=== PATIENT | male | born 1960 | race Caucasian/White ===

== ENCOUNTER 2018-04-07 18:29 | Emergency (ER) | payer BC ==
[~2018-04-07] VITALS: Ht 170.2 cm; Wt 69.3 kg
[~2018-04-07 18:29] MED LIST changes: -ASPI81TA28 PO; -INSDGI SC; -LISI-729 PO; -NVLG SC; -SIMV5TAB2 PO
[2018-04-07 18:32] VITALS: TEMP 36.9; Ht 170.2 cm; Wt 69.3 kg
[2018-04-07] MEDS ORDERED: SODIUM CHLORIDE 0.9% 1000ML 1,000 ML IV STA ×3 (18:39→21:31)
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
[2018-04-07 19:18] LABS: BASO % 0.5 %; BASO ABS # 0.04 K/uL (0-0.2); EOS % 3.4 %; EOS ABS # 0.29 K/uL (0-0.5); HEMATOCRIT 38.4 % (42-52); HEMOGLOBIN 14.3 g/dL (14.0-18.0); IG# 0.03 K/uL (0.00-0.02); LYMPH % 28.2 %; LYMPH ABS # 2.44 K/uL (1.2-3.4); MEAN CELL VOLUME 84.8 fL (80-100); MEAN CORPUSCULAR HEMOGLOBIN 31.6 pg (25-34); MEAN CORPUSCULAR HGB CONC 37.2 g/dl (32-36); MEAN PLATELET VOLUME 10.7 fL (7.4-10.4); MONO % 5.1 %; MONO ABS # 0.44 K/uL (0.11-0.59); NEUT % 62.5 %; NEUT ABS # 5.41 K/uL (1.4-6.5); PLATELET COUNT 219 K/uL (130-400); RED CELL DISTRIBUTION WIDTH CV 12.9 % (11.5-14.5); RED CELL DISTRIBUTION WIDTH SD 39.6 fL (36.4-46.3); WHITE BLOOD COUNT 8.65 K/uL (4.8-10.8)
[2018-04-07 20:06] LABS: ALBUMIN 3.3 gm/dl (3.4-5.0); CALCIUM 8.2 mg/dl (8.5-10.1); CREATININE 1.63 mg/dl (0.60-1.40); TOTAL PROTEIN 7.2 gm/dl (6.4-8.2)
[2018-04-07] MEDS ORDERED: SIMV5TAB2 PO (20:19)
[2018-04-07] MEDS ORDERED: INSDGI SC (20:19)
[2018-04-07] MEDS ORDERED: ASPI81TA28 PO (20:19)
[2018-04-07] MEDS ORDERED: LISI-729 PO (20:19)
[2018-04-07] MEDS ORDERED: NVLG SC ×3 (20:19)
[2018-04-07] MEDS ORDERED: NovoLIN-R INSULIN PER UNIT CHARGE IV STA (20:29)
[2018-04-07] MEDS ORDERED: INSULIN IV INFUSION PROTOCOL STA (20:29)
[2018-04-07] MEDS ORDERED: HHS GOAL RANGE 250-350 mg/dl ONE (20:30)
[2018-04-07] MEDS ORDERED: MODERATE STRESS LEVEL ONE (20:30)
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
[2018-04-07] MEDS ORDERED: INSULIN ASPART 100 UNITS/ML 3 ML PEN SC SCH (21:00)
[2018-04-07] MEDS ORDERED: LANTUS PER UNIT CHARGE SQ ONE (21:15)
--- NOTE | 2018-04-07 21:22 | Medical Consult ---
Consultation Date of Consultation: Apr 07, 2018. Attending Physician: Reason for Consultation: Hyperglycemia History of Present Illness Patient is a 57 year old male with hyperglycemia that we were asked to evaluated in consultation due to hyperglycemia. Patient is a 57 year old male with a PMH of COPD and T2 DM that presented to the ED upon request of his PCP Dr. Cody because the patient was found to have very high blood sugar during outpatient testing. The patient notes that he has not been able to afford his test strips and lantus and therefore he has not been administering his insulin as prescribed. He has been taking 5 units of rapid acting insulin with meals but is unsure how much to give for his coverage due to the fact that he can't afford the test strips. Otherwise he notes that he feels fine. He denies any headache, current visual changes, shortness of breath, dizziness, abdominal pain or fatigue. He has COPD and takes inhalers at home. He notes that his breathing has been worse than usual this month because of the weather. He continues to smoke 1 pack of cigarrettes daily. His vital signs have shown tachycardia. His labs have been significant for a glucose of 691, his ABG shows a PH of 7.46 and a PCO2 of 29 and his creatinine is elevated at 1.69. He has been given a L of fluids and he has been given 10 units of regular insulin IV. Past Medical/Surgical History Medical Problems: (1) Hyperglycemia Status: Acute (2) Noncompliance with medications Status: Acute (3) Uncontrolled diabetes mellitus Status: Acute Family History Cancer Diabetes mellitus Heart disease High blood pressure Lung disease Social History Smoking Status: Current Every Day Smoker Smokeless Tobacco Use: Yes Marital Status: Housing Status: lives with significant other Allergies Coded Allergies: No Known Allergies (Unverified , 04/07/18) Home Medications Simvastatin, lisinopril, aspirin, lantus, aspart and 2 inhalers Current Inpatient Medications Current Inpatient Medications Medications (Trade) Dose Ordered Sig/Jona Route Start Time Stop Time Status Last Admin Dose Admin Sodium Chloride 1,000 ml @ 200 mls/hr Q5H STAT IV 04/07/18 18:39 04/07/18 23:38 04/07/18 19:09 200 MLS/HR Insulin Glargine (Lantus Per Unit) 20 units NOW ONCE SQ 04/07/18 21:15 04/07/18 21:16 Review of Systems 10 systems were reviewed and were negative except as noted in the HPI Physical Exam Date Time Temp Pulse Resp B/P (MAP) Pulse Ox O2 Delivery O2 Flow Rate FiO2 04/07/18 20:32 101 16 136/99 97 Room Air 04/07/18 20:30 98 04/07/18 18:32 36.9 122 18 171/112 97 Room Air General Appearance: WD/WN, no apparent distress, + pertinent finding (ill appearing but in no acute distress) Head: normocephalic ENT: hearing grossly normal, + pertinent finding (no teeth) Neck: supple, no JVD, no carotid bruits, trachea midline Respiratory/Chest: lungs clear, no respiratory distress, no accessory muscle use, + decreased breath sounds (bilaterally) Cardiovascular: regular rate, rhythm, no murmur, normal peripheral pulses Abdomen/GI: normal bowel sounds, non tender, soft Extremities/Musculoskelatal: no calf tenderness, no pedal edema, non-tender Neurologic/Psych: alert, normal mood/affect, oriented x 3 Skin: normal color, warm/dry, no rash Laboratory Results Last 24 Hours Test 04/07/18 18:36 04/07/18 18:56 04/07/18 19:02 04/07/18 20:30 Bedside Glucose > 600 mg/dl White Blood Count 8.65 K/uL Red Blood Count 4.53 M/uL Hemoglobin 14.3 g/dL Hematocrit 38.4 % Mean Corpuscular Volume 84.8 fL Mean Corpuscular Hemoglobin 31.6 pg Mean Corpuscular Hemoglobin Concent 37.2 g/dl Platelet Count 219 K/uL Mean Platelet Volume 10.7 fL Neutrophils (%) (Auto) 62.5 % Lymphocytes (%) (Auto) 28.2 % Monocytes (%) (Auto) 5.1 % Eosinophils (%) (Auto) 3.4 % Basophils (%) (Auto) 0.5 % Neutrophils # (Auto) 5.41 K/uL Lymphocytes # (Auto) 2.44 K/uL Monocytes # (Auto) 0.44 K/uL Eosinophils # (Auto) 0.29 K/uL Basophils # (Auto) 0.04 K/uL RDW Standard Deviation 39.6 fL RDW Coefficient of Variation 12.9 % Immature Granulocyte % (Auto) 0.3 % Immature Granulocyte # (Auto) 0.03 K/uL Sodium Level 131 mmol/L Potassium Level 4.0 mmol/L Chloride Level 101 mmol/L Carbon Dioxide Level 20 mmol/L Anion Gap 9.0 mmol/L Blood Urea Nitrogen 17 mg/dl Creatinine 1.63 mg/dl Est Creatinine Clear Calc Drug Dose 47.3 ml/min Estimated GFR () 53.8 Estimated GFR (Non- 46.4 BUN/Creatinine Ratio 10.4 Random Glucose 691 mg/dl Calcium Level 8.2 mg/dl Total Bilirubin 0.6 mg/dl Direct Bilirubin mg/dl Aspartate Amino Transf (AST/SGOT) 27 U/L Alanine Aminotransferase (ALT/SGPT) 60 U/L Alkaline Phosphatase 127 U/L Total Protein 7.2 gm/dl Albumin 3.3 gm/dl Lipase 224 U/L Beta-Hydroxybutyric Acid mg/dL Chemistry Specimen Hemolysis Arterial Blood pH 7.46 Arterial Blood Partial Pressure CO2 29 mmHg Arterial Blood Partial Pressure O2 98 mm/Hg Arterial Blood HCO3 20 mmol/L Arterial Blood Oxygen Saturation 97.8 % Arterial Blood Base Excess -2.8 mEq/L Arterial Blood Gas Delivery ROOM AIR Duy Test POS Urine Color YELLOW Urine Appearance CLEAR Urine pH 6.0 Urine Specific [place] 1.033 Urine Protein NEG Urine Glucose (UA) 3+ Urine Ketones NEG Urine Occult Blood NEG Urine Nitrite NEG Urine Bilirubin NEG Urine Urobilinogen NEG Urine Leukocyte Esterase NEG Assessment & Plan Patient is a 57 year old male with a PMH of diabetes and COPD who we were asked to see due to hyperglycemia. He has been unable to pay for his lantus and his test strips. He went to his family doctor this afternoon who ordered lab tests and the patient was found to have severe hyperglycemia therefore he was sent to the ED for further evaluation. His vital signs showed tachycardia in the ED. His labs were significant for a glucose of 691, his ABG showed a PH of 7.46 and a PCO2 of 29 and his creatinine wss elevated at 1.69. He was given 2L of fluids and he was given 10 units of regular insulin IV. We recommended to give the patient 20 units of lantus and another Litre of NS. When rechecking his glucose it was 227. Throughout the patients hospital stay in the ED he remained completely asymptomatic. He said he had a prescription waiting for him at the pharmacy the next day. Plan is for the patient to be discharged this evening with follow up with his PCP. Resident Physician Supervision Note: I was present with Dr. Wright during the history and exam. I discussed the case with the resident and agree with the findings and plan as documented in the note. Any exceptions or clarifications are listed here: 57 y/o M Hx IDDM, COPD who continues to smoke He presented at the behest of his MD for abnormal labs including a Glu of over 600. He has not complied with his Insulin in one month. He states that he lost insurance coverage and was not able to afford his test strips. The pt was not acidotic. OE AAO x 3 S1,2 R CTA - poor air movement BL NT, ND No CCE P: We had corrected the pt's glu in the ER He will be DCd to follow up with his primary MD He was provided with test strips I had pointed out that he could have afforded his medications by cutting down on cigarettes as they cot more per month than his test strips He was encouraged to pursue cessation Documented By: Faustino Sol
[2018-04-07 23:32] VITALS: BP 153/93; PULSE 90; O2SAT 99
== END 2018-04-07 23:33 | disposition home or self-care (01) ==
LOC: C.EDB 18:31
DX: E11.65 Type 2 diabetes mellitus with hyperglycemia (principal); Z91.14 Patient's other noncompliance with medication regimen; R00.0 Tachycardia, unspecified; I10 Essential (primary) hypertension; J44.9 Chronic obstructive pulmonary disease, unspecified; F17.200 Nicotine dependence, unspecified, uncomplicated; Z79.82 Long term (current) use of aspirin; Z79.4 Long term (current) use of insulin; Z79.899 Other long term (current) drug therapy; Z83.3 Family history of diabetes mellitus

== ENCOUNTER → 2018-04-07 | Outpatient (CLI) | payer BC, OTHER ==
[~2018-04-07] MED LIST: ASPI81TA28 PO; GLC500 PO; INSDGI SC; LISI-729 PO; NVLG SC; SIMV5TAB2 PO
[2018-04-07 16:47] LABS: BASO % 0.7 %; BASO ABS # 0.06 K/uL (0-0.2); EOS % 3.7 %; EOS ABS # 0.33 K/uL (0-0.5); HEMATOCRIT 39.4 % (42-52); HEMOGLOBIN 14.4 g/dL (14.0-18.0); IG# 0.03 K/uL (0.00-0.02); LYMPH % 22.9 %; LYMPH ABS # 2.02 K/uL (1.2-3.4); MEAN CELL VOLUME 85.5 fL (80-100); MEAN CORPUSCULAR HEMOGLOBIN 31.2 pg (25-34); MEAN CORPUSCULAR HGB CONC 36.5 g/dl (32-36); MEAN PLATELET VOLUME 10.6 fL (7.4-10.4); MONO % 5.7 %; NEUT % 66.7 %; NEUT ABS # 5.89 K/uL (1.4-6.5); PLATELET COUNT 188 K/uL (130-400); RED CELL DISTRIBUTION WIDTH SD 39.8 fL (36.4-46.3); WHITE BLOOD COUNT 8.83 K/uL (4.8-10.8)
[2018-04-07 17:26] LABS: ALBUMIN 3.1 gm/dl (3.4-5.0); ALKALINE PHOSPHATASE 124 U/L (45-117); ALT/SGPT 57 U/L (12-78); AST/SGOT 24 U/L (15-37); BLOOD UREA NITROGEN 15 mg/dl (7-18); CALCIUM 8.2 mg/dl (8.5-10.1); CARBON DIOXIDE 21 mmol/L (21-32); CREATININE 1.63 mg/dl (0.60-1.40); GLUCOSE 608 mg/dl (70-99); POTASSIUM 3.9 mmol/L (3.5-5.1); SODIUM 131 mmol/L (136-145); TOTAL PROTEIN 7.1 gm/dl (6.4-8.2)
== END | disposition home or self-care (01) ==
LOC: C.LABPBG 12:33
PROVIDERS: ATTEND Physician Assistant
DX: R63.4 Abnormal weight loss (principal); R06.02 Shortness of breath

== ENCOUNTER 2024-10-15 15:34 | Inpatient (IN) ==
--- OUTSIDE RECORDS SUMMARY | 2024-10-15 16:01 | External Medical Summary | Summary of Care ---
Author Name Unknown Organization [facility] Address [address] [place] [address] Phone [phone] Care Team Providers Care Veneer Joiner Name Role Phone Pro, Vu Gaines MD Primary Care Provider [phone]- [phone] Encounter Details Date Type Department Care Team (Late st Contact Info) Description 08/08/2024 Orders Only Outcomes Research Department [address], [place] [id number] Margy Pantoja CHRA [email or web address] Research Other*[id number] Allergies No known active allergiesdocumented as of this encounter (statuses as of 08/08/2024) Medications Aspirin 81 MG Tablet Take 1 Tablet by mouth in the morning. Active Albuterol Sulfate (PROVENTIL HFA) 108 (90 Base) MCG/ACT AERS Inhale 1 Puff by mouth every 4 hours. Active Mometasone Furoate (ASMANEX HFA) 200 MCG/ACT AERO Inhale 1 Puff by mouth 2 times a day. Active tiotropium bromide (SPIRIVA) 18 MCG inhalation Capsule Inhale 1 Capsule by mouth in the morning. For inhaler only, do not swallow. . Active omeprazole (PRILOSEC) 20 MG CPDR Take 1 Cap by mouth 2 times a day 30 minutes before morning and evening meals. 180 Cap 3 11/09/19 20 Active sucralfate (CARAFATE) 1 GM Tablet Take 1 Tablet by mouth in the morning and 1 Tablet at noon and 1 Tablet before bedtime. 01/11/20 20 Active NOVOLOG FLEXPEN 100 UNIT/ML SOPN INJECT PER SLIDING SCALE UP TO 60 UNITS TOTAL DAILY DOSE 01/16/20 20 Active Atorvastatin Calcium 40 MG Oral Tablet (Lipitor) Take 1 Tab by mouth daily. 90 Tab 3 10/18/19 21 Active amLODIPine Besylate 5 MG Oral Tablet (Norvasc) Take by mouth 1 Tablet in the morning. 34 Tablet 11 11/28/19 22 Active Vitamin D3 1.25 MG (27786 UT) Oral Capsule Take 1 Capsule by mouth once a week. 07/10/20 23 Active Levothyroxine Sodium 75 MCG Oral Tablet (Levoxyl) Take 1 Tablet by mouth daily first thing in the morning. 07/21/20 23 Active Lokelma 5 GM Oral Packet TAKE 1 PACKET BY MOUTH DAILY DIRECTED 07/17/20 23 Active Furosemide 20 MG Oral Tablet (Lasix) Take 1 Tablet by mouth in the morning. 09/09/19 24 Active Semglee (yfgn) 100 UNIT/ML Subcutaneous Solution Pen-injector INJECT 70 UNITS SUBCUTANEOUSLY ONCE DAILY AT BEDTIME 09/19/19 24 Active Lisinopril 40 MG Oral Tablet Take 1 Tablet by mouth in the morning. 07/15/20 23 Active Carvedilol 6.25 MG Oral Tablet (Coreg) Take 1 Tablet by mouth 2 times a day with morning and evening meals. 09/22/19 24 Active Lantus SoloStar 100 UNIT/ML Subcutaneous Solution Pen-injector Inject 110 Units under the skin at bedtime. 10/30/19 24 Active Metoclopramide HCl 5 MG Oral Tablet (Reglan) TAKE 1 TABLET BY MOUTH IN THE MORNING AND 1 TABLET IN THE EVENING. 30 MINUTES BEFORE MEALS. 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, with macular edema, associated with type 2 diabetes mellitus (HCC) 8 mg IZ PRN 02/05/2024 02/04/2025 A ctive documented as of this encounter (statuses as of 08/08/2024) Active Problems Problem Noted Date Diagnosed Date Coronary artery disease invo lving [place] coronary artery of [place] heart without angina pectoris 08/17/2020 Syncope 08/17/2020 NSVT (nonsustained ventricular tachycardia) 08/07 HTN, goal below 140/90 08/17/2020 Hyperlipidemia with target LDL less than 70 08/07 Diabetes mellitus without complication 0 Gastroparesis 01/31/2020 documented as of this encounter (statuses as of 08/08/2024) Social History Tobacco Use Types Packs/Day Years Used Date Smoking Tobacco: Every Day Cigarettes 1 35 Smokeless Tobacco: Former Snuff Alcohol Use Standard Drinks/Week Comments Yes 0 (1 standard drink = 0.6 oz pur e alcohol) on occasion AUDIT-C Answer Date Recorded Frequency of Alcohol Consumption Monthly or less 03/30/2020 Average Number of Drinks 1 or 2 020 Frequency of Binge Drinking Never 03/08 Sex and Gender Information Value Date Recorded Sex Assigned at Not on file Legal Sex Male 6:38 AM EST Gender Identity Not on file Sexual Orientation Not on file documented as of this encounter Plan of Treatment Scheduled Orders Name Type Priority Associated Diagnoses Orde r Schedule MYCODE INITIAL ADULT Lab Routine My[facility] Research Other*[id number] Expected: 08/08/2024 (Approximate), Expires: 08/28/2025 Scheduled Procedures Name Priority Associated Diagnoses Date/Ti me COLONOSCOPY FLEXIBLE PROXIMAL DIAGNOSTIC Recall History of colonic polyps ESOPHAGOGASTRODUODENOSCOPY ( EGD), FLEXIBLE, TRANSORAL, DIAGNOSTIC Recall Chapman's esophagus Health Maintenance Due Date Last Done Comments DISCUSS TOBACCO CESSATION (REFER TO SMARTSET #3291) 1961 Pneumococcal Vaccine: Pediatrics (0 to 5 Years) and At-Risk Patients (6 to 64 Years) (1 of 2 - PCV) 1967 Depression Screening 1973 HIV Screening 1976 Diabetic Foot Exam 1979 Hepatitis C Screening 1979 DTap/Tdap Vaccines (1 - Tdap) 1980 Cologuard 2006 Fecal Occult Blood Test 2006 Sigmoidoscopy 2006 Lung Cancer Screening 2011 Zoster Vaccines (1 of 2) 2011 HbA1c 03/24/2023 09/24/2022, 05/09, 01/01/2016, Additional history exists Albumin/Creatinine Ratio 09/22/2023 023, 01/02/2016, 07/15/2014, Additional history exists COVID-19 Vaccine ( - season) 2024 Influenza Vaccine (FLU shot) (#1) 2024 GFR 06/15/2024 06/15/2023, 07/0 01/2022, 02/20/2022, Additional history exists TSH 06/15/2024 06/15/2023, 05/09, 01/01/2016, Additional history exists Diabetic Eye Exam 11/12/2024 11/13/2023, , 11/13/2023, Additional history exists Colonoscopy 11/18/2026 11/19/2023, 11/19/2023 Colorectal Cancer Screening 11/18/2026 HPV (Gardasil) Vaccine Aged Out No lo nger eligible based on patient's age to complete this topic Hepatitis B Vaccine Aged Out No longe r eligible based on patient's age to complete this topic MENINGOCOCCAL (MENACTRA/MENVEO) Aged Out No longer eligible based on patient's age to complete this topic documented as of this encounter Medical Devices Implanted Type Area Lining Maker Hand Device Identifier Shelf Expiration Date Model / Serial / Lot Duraclip 16mm Xlg Repostn - [id number] Implanted:Qty: 1 on 11/19/2023 by Flaquita De La Garza DO at [facility] [employer] 10/23/2024 [id number] / / [id number] documented as of this encounter Visit Diagnoses Diagnosis MyCode Research Other*[id number] documented in this encounter Care Teams Veneer Joiner Relationship Specialty Start Date End Date Pro, Vu Gaines MD [address] [place] [address] PCP - General Internal Medicine 10/26/19 documented as of this encounter
--- OUTSIDE RECORDS SUMMARY | 2024-10-15 16:01 | External Medical Summary | Summary of Care ---
Author Name Unknown Organization [facility] Address [address] [place] [address] Phone [phone] Care Team Providers Care Soaker Helper Name Role Phone Pro, Vu Gaines MD Primary Care Provider [phone]- [phone] Encounter Details Date Type Department Care Team (Late st Contact Info) Description 09/27/2024 Population Health External Data Unspecified Department Allergies No known active allergiesdocumented as of this encounter (statuses as of 09/27/2024) Medications Aspirin 81 MG Tablet Take 1 [...] in the morning. 34 Tablet 11 11/28/19 Active Vitamin D3 1.25 MG (59755 UT) Oral Capsule Take 1 Capsule by mouth once a week. 07/10/20 Active Levothyroxine Sodium 75 MCG Oral Tablet (Levoxyl) Take 1 Tablet by mouth daily first thing in the morning. 07/21/20 Active Lokelma 5 GM Oral Packet TAKE 1 PACKET BY MOUTH DAILY DIRECTED 07/17/20 Active Furosemide 20 MG Oral Tablet (Lasix) [...] as of this encounter (statuses as of 09/27/2024) Active Problems Problem Noted Date Diagnosed Date Coronary artery disease invo lving [place] coronary artery of [place] heart without angina pectoris 08/17/2020 Syncope 08/17/2020 NSVT (nonsustained ventricular tachycardia) 08/07 HTN, goal below 140/90 08/17/2020 Hyperlipidemia with target LDL less than 70 08/07 Diabetes mellitus without complication 0 Gastroparesis 01/31/2020 documented as of this encounter (statuses as of 09/27/2024) Social History Tobacco Use Types Packs/Day Years [...] of this encounter Plan of Treatment Scheduled Procedures Name Priority Associated Diagnoses Date/Ti me COLONOSCOPY FLEXIBLE PROXIMAL DIAGNOSTIC Recall History of colonic polyps ESOPHAGOGASTRODUODENOSCOPY ( EGD), FLEXIBLE, TRANSORAL, DIAGNOSTIC Recall Chapman's esophagus Health Maintenance Due Date Last Done Comments DISCUSS TOBACCO CESSATION (REFER TO SMARTSET #3944) 1961 Depression Screening 1973 HIV Screening 1976 Diabetic Foot Exam 1979 Hepatitis C Screening 1979 DTap/Tdap Vaccines (1 - Tdap) 1980 Pneumococcal Vaccine: 50+ Years (1 of 2 - PCV) 1980 Pneumococcal Vaccine: Pediatrics (0 to 5 Years) and At-Risk Patients (6 to 18 Years and 19+ Years) (1 of 2 - PCV) 1980 Cologuard 2006 Fecal Occult Blood Test 2006 Sigmoidoscopy 2006 Lung Cancer Screening 2011 Zoster Vaccines (1 of 2) 2011 HbA1c 03/24/2023 09/24/2022, 05/09, 01/01/2016, Additional history exists Albumin/Creatinine Ratio 09/22/2023 023, 01/02/2016, 07/15/2014, Additional history exists COVID-19 Vaccine ( season) 2024 Influenza Vaccine (FLU shot) (#1) [...] this encounter Medical Devices Implanted Type Area Critical Care Physician Assistant Device Identifier Shelf Expiration Date Model / Serial / Lot Duraclip 16mm Xlg Repostn - [id number] Implanted:Qty: 1 on 11/19/2023 by Flaquita De La Garza DO at [facility] [employer] 10/23/2024 [id number] / / [id number] documented as of this encounter Care Teams Soaker Helper Relationship Specialty Start Date End Date Pro, Vu Gaines MD [address] [place] [address] PCP - General Internal Medicine 10/26/19 documented as of this encounter
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
[2024-10-15 16:54] LABS: Basophils # (auto) 0.06 K/uL (0.00-0.20); Basophils % (auto) 0.8 %; Eosinophils # (auto) 0.68 K/uL (0.00-0.50); Eosinophils % (auto) 9.1 %; Hematocrit (blood only) 29.7 % (42.0-52.0); Hemoglobin 9.2 g/dl (14.0-18.0); Immature Granulocytes # (auto) 0.07 K/uL (0.01-0.20); Immature Granulocytes % (auto) 0.9 %; Lymphocytes # (auto) 0.96 K/uL (1.20-3.40); Lymphocytes % (auto) 12.8 %; Mean Corpuscular Hemoglobin 29.3 pg (25.0-34.0); Mean Corpuscular Volume 94.6 fL (80.0-100.0); Monocytes # (auto) 0.54 K/uL (0.11-0.59); Monocytes % (auto) 7.2 %; Neutrophils # (auto) 5.18 K/uL (1.40-6.50); Neutrophils % (auto) 69.2 %; Platelet Count 100 K/uL (130-400); RDW Coefficient of Variation 19.1 % (11.5-14.5); RDW Standard Deviation 64.7 fL (36.4-46.3); Red Blood Count 3.14 M/uL (4.70-6.10); White Blood Count 7.49 K/ul (4.8-10.8)
[2024-10-15 17:12] LABS: Albumin Globulin Ratio 0.6 (0.9-2); Albumin Level 2.8 gm/dl (3.4-5.0); BUN Creatinine Ratio 12.2 (10-20); Bilirubin,Total 0.5 mg/dl (0.2-1.0); Calcium 7.8 mg/dl (8.6-10.3); Creatinine Clr Calc Pharmacy 13.6 ml/min; Globulin 4.4 gm/dl (2.5-4.0); Potassium 6.3 mmol/L (3.5-5.1); Total Protein 7.2 gm/dl (6.0-8.3); Troponin I High Sensitivity 15.8 pg/ml (0-20)
[2024-10-15 17:19] LABS: Partial Thromboplastin Time 26 Seconds (21-31); Prothrombin Time 11.2 Seconds (9.0-12.0)
[2024-10-15] MEDS: CALCIUM GLUCONATE 1,000 MG/60 ML BAG IV STA (17:21)
[2024-10-15] MEDS: SODIUM BICARB 8.4% INJ 50 MEQ/50 ML SYR IV STA (17:22)
[2024-10-15 18:23] LABS: Appearance Urine Cloudy (Clear); Bacteria Urine Automated None Seen (None Seen); Bilirubin Urine Negative (Negative); Blood Urine 3+ (Negative); Color Urine Yellow; Epithelial Cell Urine Auto 0-2 /hpf (0-2); Glucose Urine UA Trace (Negative); Ketones Urine Negative (Negative); Leukocyte Esterase Urine Negative (Negative); Nitrite Urine Negative (Negative); Protein Urine 3+ (Negative); RBC Urine Automated >20 /hpf (0-2); Specific Gravity Urine 1.019 (1.000-1.030); Urobilinogen Urine Negative (Negative); WBC Urine Automated 0-5 /hpf (0-5)
--- NOTE | 2024-10-15 19:07 | CT Scan Report ---
EXAM: CT Chest Abdomen and Pelvis Without Intravenous Contrast INDICATION: Left upper quadrant pain. TECHNIQUE: Axial computed tomography images of the chest, abdomen and pelvis without intravenous contrast. Sagittal and coronal reformatted images were created and reviewed. This CT exam was performed using one or more of the following dose reduction techniques: automated exposure control, adjustment of the mA and/or kV according to patient size, and/or use of iterative reconstruction technique. COMPARISON: No relevant prior studies available. FINDINGS: Limitations: None. CHEST: Lungs and pleural spaces: Large left pleural effusion with complete collapse of the right lower and middle lobes and near collapse of the lower right upper lobe with maintained anterior segment aeration. Air bronchograms noted in the collapsed segments. No centrally obstructing mass identified. Left lung is clear. No pneumothorax. Heart: Cardiomegaly noted. Cardiac pacing device noted. Metallic artifact limits assessment of lead integrity. Mediastinum: No abnormality noted. Thyroid: No abnormality noted. ABDOMEN: Liver: Cirrhotic liver without evident mass or ductal dilatation. Gallbladder and bile ducts: No abnormality noted. No calcified stones. No ductal dilation. Pancreas: No pancreatic mass, calcification, inflammation or ductal dilation noted. Spleen: No significant abnormality noted. Adrenals: No significant abnormality noted. Kidneys and ureters: Simple bilateral renal cysts noted. No follow-up necessary. No stones or hydronephrosis. Stomach and bowel: See below. PELVIS: Appendix: No findings to suggest acute appendicitis. Bladder: The bladder is decompressed by catheter with the balloon inflated in the lumen. No stones. Reproductive: No significant abnormality noted. CHEST, ABDOMEN and PELVIS: Intraperitoneal space: Large amounts of abdominal and pelvic ascites. No free air. Bowel loops surrounded by ascitic fluid. No obstruction. Left colonic diverticula noted. No evidence focal thickening. Retroperitoneal space: No abnormality noted. No fluid collection. Bones/joints: No acute changes. Soft tissues: Generalized body wall edema noted. Vasculature: Prominent varices in the upper abdomen and paraesophageal compartment. Atherosclerotic calcification of the aorta and branches. No aneurysm. Lymph nodes: No enlarged lymph nodes. IMPRESSION: 1. Large right pleural effusion surrounds the right lower and middle lobes and significant portions of the right upper lobe. No obstructing mass noted. 2. Cirrhosis with large volume abdominal and pelvic ascites. 3. Anasarca. ACT 112: Negative or not required by law. Electronically signed by Myrna Gibson 10-15-2024 7:07 PM
[2024-10-15] MEDS: ALBUT/IPRATROP 3MG/0.5MG NEB 3 ML VIAL NEB STA (20:05)
[2024-10-15] MEDS: FUROSEMIDE 40 MG/4 ML VIAL IV ONE (20:05)
[2024-10-15] MEDS: SODIUM BICARBONATE 8.4% 150 MEQ in WATER, STERILE 1,000 ML IV SCH (20:27)
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
[2024-10-16] MEDS ORDERED: GLUCAGON FOR INJ 1 MG VIAL SQ PRN (00:50)
[2024-10-16] MEDS ORDERED: ACETAMINOPHEN 325 MG TAB PO PRN (00:50)
[2024-10-16] MEDS ORDERED: GLUCOSE 40% GEL 15 GM TUBE PO PRN (00:50)
[2024-10-16] MEDS ORDERED: ALBUTEROL HFA 8 GM INHALER INH PRN (00:50)
[2024-10-16] MEDS ORDERED: GLUCOSE 10 TAB/TUBE PO PRN (00:50)
[2024-10-16 02:13] LABS: Calcium 7.6 mg/dl (8.6-10.3); Creatinine Clr Calc Pharmacy 13.6 ml/min; Phosphorus 6.5 mg/dl (2.5-4.9); Potassium 5.7 mmol/L (3.5-5.1)
[2024-10-16] MEDS: INSULIN ASPART PER UNIT CHARGE SC SCH (02:27)
[2024-10-16] MEDS: carvediloL 6.25 MG TAB PO SCH ×2 (02:59→08:20)
[2024-10-16] MEDS: LANTUS PER UNIT CHARGE SC SCH ×2 (03:10→08:41)
[2024-10-16] MEDS: FUROSEMIDE 10 MG/ML 10 ML VIAL IV SCH (03:54)
[2024-10-16 05:35] LABS: Basophils # (auto) 0.04 K/uL (0.00-0.20); Basophils % (auto) 0.6 %; Eosinophils # (auto) 0.45 K/uL (0.00-0.50); Eosinophils % (auto) 6.8 %; Hematocrit (blood only) 23.3 % (42.0-52.0); Hemoglobin 7.5 g/dl (14.0-18.0); Immature Granulocytes # (auto) 0.05 K/uL (0.01-0.20); Immature Granulocytes % (auto) 0.8 %; Lymphocytes # (auto) 0.88 K/uL (1.20-3.40); Lymphocytes % (auto) 13.4 %; Mean Corpuscular Hemoglobin 30.1 pg (25.0-34.0); Mean Corpuscular Hgb Conc 32.2 g/dL (32.0-36.0); Mean Corpuscular Volume 93.6 fL (80.0-100.0); Mean Platelet Volume 9.2 fL (9.4-12.4); Monocytes # (auto) 0.57 K/uL (0.11-0.59); Monocytes % (auto) 8.7 %; Neutrophils # (auto) 4.58 K/uL (1.40-6.50); Neutrophils % (auto) 69.7 %; Platelet Count 76 K/uL (130-400); Platelet Estimate Decreased (Normal); Polychromasia 1+; RDW Coefficient of Variation 18.9 % (11.5-14.5); RDW Standard Deviation 63.5 fL (36.4-46.3); Red Blood Count 2.49 M/uL (4.70-6.10); White Blood Count 6.57 K/ul (4.8-10.8)
[2024-10-16 05:36] LABS: INR 1.1 (0.9-1.1); Partial Thromboplastin Time 27 Seconds (21-31); Prothrombin Time 11.9 Seconds (9.0-12.0)
[2024-10-16 05:37] LABS: Albumin Globulin Ratio 0.6 (0.9-2); Albumin Level 2.2 gm/dl (3.4-5.0); BUN Creatinine Ratio 11.9 (10-20); Bilirubin,Total 0.5 mg/dl (0.2-1.0); Calcium 7.5 mg/dl (8.6-10.3); Creatinine Clr Calc Pharmacy 13.2 ml/min; Globulin 3.6 gm/dl (2.5-4.0); Magnesium 1.6 mg/dl (1.7-2.4); Phosphorus 6.4 mg/dl (2.5-4.9); Potassium 6.3 mmol/L (3.5-5.1); Total Protein 5.8 gm/dl (6.0-8.3); Troponin I High Sensitivity 14.7 pg/ml (0-20)
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
[2024-10-16] MEDS: CALCIUM GLUCONATE 1,000 MG/60 ML BAG IV STA (08:38)
[2024-10-16] MEDS: LANTUS PER UNIT CHARGE SQ ONE (08:49)
[2024-10-16 08:53] LABS: Estimated Average Glucose 114 mg/dl; Hemoglobin A1C 5.6 % (4.5-5.6)
[2024-10-16] MEDS ORDERED: FUROSEMIDE 20 MG TAB PO SCH (09:00)
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
[2024-10-16 09:53] LABS: BUN Creatinine Ratio 12.4 (10-20); Calcium 7.7 mg/dl (8.6-10.3); Creatinine Clr Calc Pharmacy 13.6 ml/min
[2024-10-16] MEDS: ATORVASTATIN 40 MG TAB PO SCH (09:58)
[2024-10-16] MEDS: ASPIRIN 81 MG ECTAB PO SCH (09:58)
[2024-10-16] MEDS: amLODIPine BESYLATE 5 MG TAB PO SCH (09:58)
[2024-10-16] MEDS: PANTOprazole 40 MG TAB PO SCH (09:59)
[2024-10-16] MEDS: lisinopril 40 MG TAB PO SCH (10:00)
[2024-10-16] MEDS: SODIUM ZIRCONIUM CYCLOSILICATE 10 GM PACKET PO SCH (10:20)
[2024-10-16] MEDS ORDERED: SODIUM BICARBONATE IV SCH (11:00)
--- NOTE | 2024-10-16 11:23 | Pulmonary Consultation ---
Date of Consultation October 16, 2024 Assessment & Plan (1) Pleural effusion, right: (2) Ascites due to alcoholic cirrhosis: (3) Dyspnea on exertion: (4) Anasarca: Plan 63-year-old male presenting to the hospital with TRAN on CKD stage IV and and is severely volume overloaded. Patient with evidence of hepatic hydrothorax secondary to massive ascites from cirrhosis. Will consult IR for thoracentesis and paracentesis. Patient would benefit from albumin infusion around the time of the procedure to help prevent hypotension. Patient would also benefit from hemodialysis given severe TRAN and anasarca state. Nephrology following and planning for hemodialysis after vascular access is obtained. History of Present Illness Reason for Consultation: Large right pleural effusion Attending Physician: Margarita Ayala DO History of Present Illness 63-year-old male with hep C, nephrotic syndrome, CKD stage IV and GERD who presented to the hospital with shortness of breath and fatigue. CT chest and abdomen revealed massive ascites and a large right pleural effusion. Labs are consistent with TRAN on CKD and hyperkalemia. Nephrology consult to pulmonary medicine for thoracentesis. Patient endorses dyspnea with movement. No cough. No fevers or chills. Allergies Allergy/AdvReac Type Severity Reaction Status Date / Time No Known Allergies Allergy Verified 06/02/24 10:04 Home Medications Medication Instructions Recorded Confirmed Type aspirin 81 mg tablet,delayed 81 mg PO DAILY 06/16/20 10/15/24 History release furosemide 20 mg tablet (Lasix) 20 mg PO DAILY #30 tabs 11/06/23 10/15/24 Rx carvedilol 6.25 mg tablet 6.25 mg PO BID #60 tabs 11/13/23 10/15/24 Rx albuterol sulfate 90 mcg/actuation 1 puff inhalation Q4H PRN 06/02/24 10/15/24 Rx aerosol inhaler shortness of breath or wheezing #18 grams amlodipine 5 mg tablet 10 mg (2 x 5 mg) PO DAILY #180 tabs 06/02/24 10/15/24 Rx atorvastatin 40 mg tablet 40 mg PO DAILY #90 tabs 06/02/24 10/15/24 Rx blood sugar diagnostic (OneTouch #400 ea 06/02/24 Rx Verio test strips) cholecalciferol (vitamin D3) 1,250 50,000 unit PO .weekly #12 caps 06/02/24 10/15/24 Rx mcg (50,000 unit) capsule insulin aspart U-100 100 unit/mL See Rx Instructions .Route 06/02/24 10/15/24 Rx (3 mL) subcutaneous pen (Novolog .COMPLEX #15 mL FlexPen U-100 Insulin aspart) insulin glargine 100 unit/mL (3 70 unit (0.7 mL) subcut HS #60 mL 06/02/24 10/15/24 Rx mL) subcutaneous pen (Lantus Solostar U-100 Insulin) lancets 33 gauge #400 ea 06/02/24 Rx lisinopril 40 mg tablet 40 mg PO DAILY #90 tabs 06/02/24 10/15/24 Rx omeprazole 20 mg capsule,delayed 20 mg PO DAILY #90 caps 06/02/24 10/15/24 Rx release pen needle, diabetic 32 gauge x #500 ea 06/02/24 Rx 5/32" (BD Ultra-Fine Olivia Pen Needle) triamcinolone acetonide 0.1 % 1 applic topical BID PRN Skin 06/02/24 10/15/24 Rx topical cream Irritation #80 grams Patient History Medical History Acute kidney injury Type 2 diabetes mellitus Surgical History No pertinent past surgical history Family History Grandfather Colon cancer Mother Leukemia Father Diabetes Hypertension Myocardial infarction Grandfather Colon cancer Denies family history of Ovarian cancer Prostate cancer Breast cancer Social History Smoking Status: Current every day smoker Tobacco Type: Cigarettes Age Started Using Tobacco: 17; packs per day: 1; Cigarettes Per Day: 1 pack per day; Second Hand Exposure: No; Do You Dip or Chew Tobacco: No; Hx Alcohol Use: Yes Hx Substance Use: No Preferred Language: Amharic Communication Ability: Effective Pulper Required: No Beliefs That Will Affect Care: None marital status: Current Living Situation: Spouse current occupational status: unemployed Other Information That Helps Us Care for You: No Feels Safe at Home: Yes Safety Concerns: Feels Safe At This Time Childhood Exposure to Second-Hand Smoke: Yes Dental Care, Regularly: No Physical Activity Frequency: Does not Exercise Seatbelt Use: always Sunscreen Use: No Assistive Devices: Glasses Review of Systems Review of Systems: All systems reviewed & are unremarkable except as noted in HPI & below Physical Exam Physical Exam: Constitutional: Patient appears to be of their stated age. Patient is in no apparent distress. Patient is well-developed. Eyes: Pupils are equal round and reactive to light. Conjunctivae are normal. Anicteric sclera. Ears nose, mouth and throat: Mallampati class 2. Normal posterior oropharynx. Uvula is midline. Neck: Trachea is midline. Visual inspection is normal. Respiratory: Diminished at the right lung base with crackles. No significant tachypnea. Cardiovascular: Regular rate and rhythm. No murmurs. No edema. Gastrointestinal: Large fluid wave. Massively protuberant abdomen. Musculoskeletal: No cyanosis. Patient is able to move all extremities. Strength is 5 out of 5 in the upper and lower extremities. Skin: No rashes, warm dry and intact. Neurologic: No obvious focal neurological deficits seen. Psychiatric: Alert and oriented x3 with a euthymic affect. Results & Data Results & Data Vital Signs (Past 12 Hours) Vital Signs Temp Pulse Pulse Resp BP BP Pulse Ox 10/16/24 07:02 36.7 C 92 H 18 116/66 95 10/16/24 06:16 36.4 C L 84 18 119/73 95 10/16/24 06:00 90 10/16/24 03:10 36.5 C 100 H 18 142/77 H 95 10/16/24 01:12 103 H 10/16/24 00:46 10/16/24 00:46 36.8 C 101 H 20 149/84 H 98 10/15/24 23:30 100 H 24 128/70 93 O2 Del Method 10/16/24 07:02 Room Air 10/16/24 06:16 Room Air 10/16/24 06:00 10/16/24 03:10 Room Air 10/16/24 01:12 10/16/24 00:46 Room Air 10/16/24 00:46 Room Air 10/15/24 23:30 PG Care Time/CCT Total # of Minutes Spent Total Time Spent with Patient: Total time spent is greater than 50% in coordination of care (as documented) at patient's floor/unit and/or counseling patient: Coding Level of Care Code 72618 INT INP/OBS CARE MIN Diagnoses Pleural effusion, right J90 Ascites due to alcoholic cirrhosis K70.31 Dyspnea on exertion R06.09 Anasarca R60.1
[2024-10-16] MEDS: SODIUM BICARBONATE IV SCH (11:43)
[2024-10-16] MEDS: DEXTROSE 5% IV SCH (11:43)
[2024-10-16 12:37] LABS: BUN Creatinine Ratio 12.1 (10-20); Calcium 7.7 mg/dl (8.6-10.3); Creatinine Clr Calc Pharmacy 13.6 ml/min; Potassium 5.7 mmol/L (3.5-5.1)
[2024-10-16] MEDS: FUROSEMIDE 40 MG/4 ML VIAL IV SCH (14:28)
--- NOTE | 2024-10-16 14:32 | Ultrasound Report ---
INDICATION: Chronic kidney disease. COMPARISON: CT from the prior day. TECHNIQUE: Real-time sonographic examination of the retroperitoneum was performed in longitudinal and transverse dimensions. FINDINGS: Kidneys: Right kidney measures up to 10.7 cm. Simple cyst measuring up to 3.6 cm. Negative for solid renal mass, hydronephrosis or shadowing calculus. Left kidney measures up to 12 cm. Simple cyst measuring 1.2 and 1.3 cm. Negative for solid renal mass, hydronephrosis or shadowing calculus. Bladder: There is a Acevedo catheter in the urinary bladder. No urinary bladder abnormality identified. Spleen is enlarged measuring 16.7 cm. Small to moderate volume ascites noted. IMPRESSION: 1. Bilateral renal cysts. No renal calculus or hydronephrosis. 2. Splenomegaly. 3. Abdominal ascites. Electronically signed by Naveen Ratliff 10-16-2024 2:31 PM
[2024-10-16] MEDS ORDERED: SODIUM CHLORIDE 0.9% 50 ML IV PRN (15:34)
[2024-10-16] MEDS ORDERED: SODIUM CHLORIDE 0.9% 100 ML IV PRN (15:34)
[2024-10-16 16:43] LABS: Hematocrit (blood only) 24.3 % (42.0-52.0); Hemoglobin 7.8 g/dl (14.0-18.0); Mean Corpuscular Hemoglobin 30.2 pg (25.0-34.0); Mean Corpuscular Hgb Conc 32.1 g/dL (32.0-36.0); Mean Corpuscular Volume 94.2 fL (80.0-100.0); Mean Platelet Volume 9.4 fL (9.4-12.4); Platelet Count 79 K/uL (130-400); RDW Coefficient of Variation 18.6 % (11.5-14.5); RDW Standard Deviation 63.7 fL (36.4-46.3); Red Blood Count 2.58 M/uL (4.70-6.10); White Blood Count 6.72 K/ul (4.8-10.8)
[2024-10-16 17:00] LABS: BUN Creatinine Ratio 12.1 (10-20); Calcium 7.2 mg/dl (8.6-10.3); Potassium 5.4 mmol/L (3.5-5.1)
[2024-10-16 17:05] LABS: Troponin I High Sensitivity 18.6 pg/ml (0-20)
[2024-10-16 21:33] LABS: BUN Creatinine Ratio 12.1 (10-20); Calcium 7.1 mg/dl (8.6-10.3); Creatinine Clr Calc Pharmacy 12.9 ml/min; Potassium 5.3 mmol/L (3.5-5.1)
[2024-10-17 06:12] LABS: Basophils # (auto) 0.04 K/uL (0.00-0.20); Basophils % (auto) 0.6 %; Eosinophils # (auto) 0.47 K/uL (0.00-0.50); Eosinophils % (auto) 7.1 %; Hematocrit (blood only) 24.7 % (42.0-52.0); Hemoglobin 7.9 g/dl (14.0-18.0); Immature Granulocytes # (auto) 0.03 K/uL (0.01-0.20); Immature Granulocytes % (auto) 0.5 %; Lymphocytes # (auto) 1.08 K/uL (1.20-3.40); Lymphocytes % (auto) 16.4 %; Mean Corpuscular Hemoglobin 29.8 pg (25.0-34.0); Mean Corpuscular Volume 93.2 fL (80.0-100.0); Mean Platelet Volume 9.1 fL (9.4-12.4); Monocytes # (auto) 0.59 K/uL (0.11-0.59); Neutrophils # (auto) 4.38 K/uL (1.40-6.50); Neutrophils % (auto) 66.4 %; Platelet Count 67 K/uL (130-400); RDW Coefficient of Variation 18.6 % (11.5-14.5); RDW Standard Deviation 62.4 fL (36.4-46.3); Red Blood Count 2.65 M/uL (4.70-6.10); White Blood Count 6.59 K/ul (4.8-10.8)
[2024-10-17 06:31] LABS: Albumin Globulin Ratio 0.6 (0.9-2); Albumin Level 2.3 gm/dl (3.4-5.0); BUN Creatinine Ratio 11.8 (10-20); Bilirubin,Total 0.5 mg/dl (0.2-1.0); Calcium 7.4 mg/dl (8.6-10.3); Globulin 3.7 gm/dl (2.5-4.0); Magnesium 1.6 mg/dl (1.7-2.4); Phosphorus 6.7 mg/dl (2.5-4.9); Potassium 4.8 mmol/L (3.5-5.1)
[2024-10-17 06:37] LABS: RBC Morphology Unremarkable
[2024-10-17 06:40] LABS: INR 1.1 (0.9-1.1); Partial Thromboplastin Time 27 Seconds (21-31); Prothrombin Time 11.9 Seconds (9.0-12.0)
[2024-10-17] MEDS: NEPHROCAPS PO SCH (08:27)
--- NOTE | 2024-10-17 08:57 | Nephrology Progress Note ---
Date of Service October 17, 2024 Assessment & Plan (1) End stage chronic kidney disease: Plan: * ESKD due to DKD * Outpatient evaluation in 2022 revealed a nonnephritic urine sediment. Renal imaging was negative for hydronephrosis. Testing for monoclonal gammopathy, PLA2R Ab were both negative. * Baseline creatinine had been 1.7. Patient was noted to have a precipitous decline in renal function 07/30. Creatinine had risen to 2.9. Patient was subsequently lost to outpatient nephrology follow-up * 10/15/[address] - simple bilateral renal cysts. No stones or hydronephrosis * Acevedo catheter was placed in EMD * Suspect patient has progressed to ESKD and requires SURGERY NURSE. Discussed KDIGO CKD staging with patient and his . Explained that patient would benefit from initiation of HD for volume management and correction of electrolyte/acid-base status. Indications/benefits/risks/alternatives to HD were discussed in detail. Patient voiced understanding and indicated that he would like to proceed with dialysis. * Protect L arm for future vascular access * Start nephrovite one daily * Vascular surgery has scheduled IJ TCC placement for 10/18/24 afternoon * Plan 1st run HD tomorrow after IJ TCC placed * Will consult case management to set up outpatient HD at [facility] w/ Dr. Sandhu (2) Hyperkalemia: Plan: * ECG without hyperkalemic change at time of admission * Medical management for hyperkalemia initiated in the EMD * Will add Lokelma 10 g p.o. 3 times daily x 6 doses * CO2 has improved to 20. Stop NaHCO3 supplement * Continue to monitor BMP (3) Anasarca: Plan: * Continue furosemide 100 mg IV every 8 hours to promote diuresis and correct serum potassium (4) Cirrhosis: Plan: * History of hepatitis C+ and heavy alcohol use * Documented history of hepatic steatosis * Patient is known to [facility] gastroenterology. Will ask GI to reassess patient in regard to cirrhosis and hepatitis C+ * Question whether patient would benefit from hepatitis C treatment * Patient is scheduled for paracentesis by VIR (5) Pleural effusion: Plan: * Large right pleural effusion with collapse of the middle and lower lobes of the right lung * Patient is scheduled for thoracentesis by VIR * Once effusion is resolved patient may require evaluation for possible mucous plugging or endobronchial lesion. He does have a longstanding history of tobacco use, COPD * Pulmonology is following (6) Hepatitis C: (7) Diabetes mellitus type 2, uncontrolled, with complications: (8) Diabetic retinopathy, nonproliferative, severe: (9) COPD (chronic obstructive pulmonary disease): Admission and Anticipated Discharge Date Admission Date: October 15, 2024 Subjective Mr. Jones was evaluated in his hospital room this morning. He was breathing comfortably on RA but c/o abdominal distention and discomfort. He reports improved UO w/ IV diuretic therapy Review of Systems Constitutional: no fever Eyes: no problem reported Ear, Nose, Mouth, Throat: no problem reported Respiratory: + dyspnea; no cough Cardiovascular: no chest pain Gastrointestinal: + abdominal pain (Left upper quadrant) Physical Exam Constitutional: not in distress (Breathing comfortably on RA) Eyes: PERRL, conjunctivae normal, anicteric sclerae ENMT: external ear and nose normal, oropharynx normal Neck: trachea midline, no thyromegaly Respiratory: normal respiratory effort (Diminished breath sounds right side); no respiratory distress Cardiovascular: Rate/Rhythm: regular rate and regular rhythm Heart Sounds: no murmur and no cardiac rub Extremities: + edema (2+ edema of the arms and legs) Gastrointestinal (Abdomen): Inspection/Auscultation: + abdomen distended and + hypoactive bowel sounds Percussion/Palpation: abdomen nontender and no guarding Musculoskeletal: Extremities: no cyanosis Neurologic: awake; not confused Results & Data Vital Signs (Past 12 Hours) Vital Signs Temp Pulse Pulse Resp BP Pulse Ox O2 Del Method 10/17/24 08:06 79 10/17/24 07:49 36.5 C 76 20 147/82 H 98 Room Air 10/17/24 07:27 Room Air 10/17/24 03:19 36.2 C L 82 18 114/62 95 Room Air 10/16/24 22:46 36.6 C 82 18 119/67 93 Room Air 10/16/24 22:03 87 10/16/24 21:00 Room Air Laboratory Results Laboratory Results - last 24 hr 10/16/24 10/16/24 10/16/24 08:56 11:48 12:27 WBC RBC Hgb Hct MCV MCH MCHC RDW Std Deviation RDW Coeff of Ca Plt Count MPV Immature Gran % (Auto) Neut % (Auto) Lymph % (Auto) [place] % (Auto) Eos % (Auto) Baso % (Auto) Neut # (Auto) Lymph # (Auto) [place] # (Auto) Eos # (Auto) Baso # (Auto) Immature Gran # (Auto) RBC Morphology PT INR APTT PTT Ratio Sodium 142 141 Potassium 6.0 H 5.7 H Chloride 118 H 118 H Carbon Dioxide 18 L 18 L Anion Gap 6 5 BUN 72 H 70 H Creatinine 5.79 H* 5.78 H* Est Cr Clr Drug Dosing 13.6 13.6 eGFR 10.34 10.37 BUN/Creatinine Ratio 12.4 12.1 Glucose 113 H 118 H POC Glucose 131 H Calcium 7.7 L 7.7 L Phosphorus Magnesium Total Bilirubin AST ALT Alkaline Phosphatase Troponin I High Sens 16.8 Total Protein Albumin Globulin Albumin/Globulin Ratio Blood Type A Positive Antibody Screen NEGATIVE 10/16/24 10/16/24 10/16/24 16:17 16:40 20:37 WBC 6.72 RBC 2.58 L Hgb 7.8 L Hct 24.3 L MCV 94.2 MCH 30.2 MCHC 32.1 RDW Std Deviation 63.7 H RDW Coeff of Ca 18.6 H Plt Count 79 L MPV 9.4 Immature Gran % (Auto) Neut % (Auto) Lymph % (Auto) [place] % (Auto) Eos % (Auto) Baso % (Auto) Neut # (Auto) Lymph # (Auto) [place] # (Auto) Eos # (Auto) Baso # (Auto) Immature Gran # (Auto) RBC Morphology PT INR APTT PTT Ratio Sodium 143 Potassium 5.4 H Chloride 115 H Carbon Dioxide 22 Anion Gap 6 BUN 73 H Creatinine 6.04 H* Est Cr Clr Drug Dosing 13.0 eGFR 9.83 BUN/Creatinine Ratio 12.1 Glucose 122 H POC Glucose 126 H 114 H Calcium 7.2 L Phosphorus Magnesium Total Bilirubin AST ALT Alkaline Phosphatase Troponin I High Sens 18.6 Total Protein Albumin Globulin Albumin/Globulin Ratio Blood Type Antibody Screen 10/16/24 10/17/24 10/17/24 20:39 00:34 04:51 WBC RBC Hgb Hct MCV MCH MCHC RDW Std Deviation RDW Coeff of Ca Plt Count MPV Immature Gran % (Auto) Neut % (Auto) Lymph % (Auto) [place] % (Auto) Eos % (Auto) Baso % (Auto) Neut # (Auto) Lymph # (Auto) [place] # (Auto) Eos # (Auto) Baso # (Auto) Immature Gran # (Auto) RBC Morphology PT INR APTT PTT Ratio Sodium 143 Potassium 5.3 H Chloride 115 H Carbon Dioxide 21 Anion Gap 7 BUN 74 H Creatinine 6.11 H* Est Cr Clr Drug Dosing 12.9 eGFR 9.70 BUN/Creatinine Ratio 12.1 Glucose 103 H POC Glucose 104 H 91 Calcium 7.1 L Phosphorus Magnesium Total Bilirubin AST ALT Alkaline Phosphatase Troponin I High Sens Total Protein Albumin Globulin Albumin/Globulin Ratio Blood Type Antibody Screen 10/17/24 10/17/24 05:31 07:47 WBC 6.59 RBC 2.65 L Hgb 7.9 L Hct 24.7 L MCV 93.2 MCH 29.8 MCHC 32.0 RDW Std Deviation 62.4 H RDW Coeff of Ca 18.6 H Plt Count 67 L MPV 9.1 L Immature Gran % (Auto) 0.5 Neut % (Auto) 66.4 Lymph % (Auto) 16.4 [place] % (Auto) 9.0 Eos % (Auto) 7.1 Baso % (Auto) 0.6 Neut # (Auto) 4.38 Lymph # (Auto) 1.08 L [place] # (Auto) 0.59 Eos # (Auto) 0.47 Baso # (Auto) 0.04 Immature Gran # (Auto) 0.03 RBC Morphology Unremarkable PT 11.9 INR 1.1 APTT 27 PTT Ratio 1.0 Sodium 142 Potassium 4.8 Chloride 115 H Carbon Dioxide 20 L Anion Gap 7 BUN 72 H Creatinine 6.09 H* Est Cr Clr Drug Dosing 13.0 eGFR 9.74 BUN/Creatinine Ratio 11.8 Glucose 79 POC Glucose 84 Calcium 7.4 L Phosphorus 6.7 H Magnesium 1.6 L Total Bilirubin 0.5 AST 18 ALT 9 Alkaline Phosphatase 193 H Troponin I High Sens Total Protein 6.0 Albumin 2.3 L Globulin 3.7 Albumin/Globulin Ratio 0.6 L Blood Type Antibody Screen PG Care Time/CCT Total # of Minutes Spent Total Time Spent with Patient: Total time spent is greater than 50% in coordination of care (as documented) at patient's floor/unit and/or counseling patient: Coding Level of Care Code 09262 SUB INP/OBS CARE 3/50MIN Diagnoses End stage chronic kidney disease N18.6 Hyperkalemia E87.5 Anasarca R60.1 Cirrhosis K70.31 Ascites presence: with ascites Hepatic cirrhosis type: alcoholic cirrhosis Pleural effusion J90 Hepatitis C B19.20 Diabetes mellitus type 2, uncontrolled, with complications E11.8; E11.65 Diabetic retinopathy, nonproliferative, severe E11.3499 COPD (chronic obstructive pulmonary disease) J44.9 (4) Cirrhosis Ascites presence: with ascites Hepatic cirrhosis type: alcoholic cirrhosis Qualified Code(s): K70.31 - Alcoholic cirrhosis of liver with ascites
--- NOTE | 2024-10-17 09:42 | Consultation ---
Date of Consultation October 17, 2024 Assessment & Plan (1) Acute on chronic kidney failure: Pt now with worsening renal fxn and fluid overload. Discussed wtih Dr Levy, planning on permcath insertion in OR tomorrow. Procedure, risks, benefits, and alternatives discussed with pt by myself at Dr Levy's request. Pt expresses understanding and agreement to proceed. History of Present Illness Reason for Consultation: ESRD Attending Physician: Chriss Chacko DO History of Present Illness 63 yo m with hx of HTN, liver cirrhosis, hepatitis C, COPD, dyslipidemia, DMII, barretts esophagus, 3rd degree heart block s/p pacemaker, admitted with worsening renal fxn and fluid overload, seen in conusltation today for permcath insertion for HD initiation. Pt states he noted increased abd and leg edema over the past week, and developed some upper abd pain as well. Admits SANCHEZ, orthopnea, fatigue. Denies TURNER, fever, chest pain, N/V, recent illness, rest pain, claudication, other complaints. Allergies Allergy/AdvReac Type Severity Reaction Status Date / Time No Known Allergies Allergy Verified 06/02/24 10:04 Home Medications Medication Instructions Recorded Confirmed Type aspirin 81 mg tablet,delayed 81 mg PO DAILY 06/16/20 10/15/24 History release furosemide 20 mg tablet (Lasix) 20 mg PO DAILY #30 tabs 11/06/23 10/15/24 Rx carvedilol 6.25 mg tablet 6.25 mg PO BID #60 tabs 11/13/23 10/15/24 Rx albuterol sulfate 90 mcg/actuation 1 puff inhalation Q4H PRN 06/02/24 10/15/24 Rx aerosol inhaler shortness of breath or wheezing #18 grams amlodipine 5 mg tablet 10 mg (2 x 5 mg) PO DAILY #180 tabs 06/02/24 10/15/24 Rx atorvastatin 40 mg tablet 40 mg PO DAILY #90 tabs 06/02/24 10/15/24 Rx blood sugar diagnostic (OneTouch #400 ea 06/02/24 Rx Verio test strips) cholecalciferol (vitamin D3) 1,250 50,000 unit PO .weekly #12 caps 06/02/24 10/15/24 Rx mcg (50,000 unit) capsule insulin aspart U-100 100 unit/mL See Rx Instructions .Route 06/02/24 10/15/24 Rx (3 mL) subcutaneous pen (Novolog .COMPLEX #15 mL FlexPen U-100 Insulin aspart) insulin glargine 100 unit/mL (3 70 unit (0.7 mL) subcut HS #60 mL 06/02/24 10/15/24 Rx mL) subcutaneous pen (Lantus Solostar U-100 Insulin) lancets 33 gauge #400 ea 06/02/24 Rx lisinopril 40 mg tablet 40 mg PO DAILY #90 tabs 06/02/24 10/15/24 Rx omeprazole 20 mg capsule,delayed 20 mg PO DAILY #90 caps 06/02/24 10/15/24 Rx release pen needle, diabetic 32 gauge x #500 ea 06/02/24 Rx 32" (BD Ultra-Fine Olivia Pen Needle) triamcinolone acetonide 0.1 % 1 applic topical BID PRN Skin 06/02/24 10/15/24 Rx topical cream Irritation #80 grams Patient History Medical History Acute kidney injury Type 2 diabetes mellitus Surgical History No pertinent past surgical history Family History Grandfather Colon cancer Mother Leukemia Father Diabetes Hypertension Myocardial infarction Grandfather Colon cancer Denies family history of Ovarian cancer Prostate cancer Breast cancer Social History Smoking Status: Current every day smoker Tobacco Type: Cigarettes Age Started Using Tobacco: 17; packs per day: 1; Cigarettes Per Day: 1 pack per day; Second Hand Exposure: No; Do You Dip or Chew Tobacco: No; Hx Alcohol Use: Yes Hx Substance Use: No Preferred Language: Montenegrin Communication Ability: Effective Supervisor Phosphoric Acid Required: No Beliefs That Will Affect Care: None marital status: Current Living Situation: Spouse current occupational status: unemployed Other Information That Helps Us Care for You: No Feels Safe at Home: Yes Safety Concerns: Feels Safe At This Time Childhood Exposure to Second-Hand Smoke: Yes Dental Care, Regularly: No Physical Activity Frequency: Does not Exercise Seatbelt Use: always Sunscreen Use: No Assistive Devices: Glasses Review of Systems Review of Systems: All systems reviewed & are unremarkable except as noted in HPI & below Physical Exam Constitutional: WD/WN, vitals as above + ill appearing, + frail appearing, cooperative and comfortable; not in distress Neck: trachea midline Respiratory: + labored breathing (mild) Auscultati on: + diminished lung sounds, + crackles and + rales Cardiovascular: Rate/Rhythm: regular rate and regular rhythm Vessels: femoral pulses present, posterior tibial pulses present, dorsalis pedis pulses present and radial pulses present; + abnormal peripheral pulses Extremities: normal capillary refill and + edema (+4 BLE) Chest (Breasts): Chest: + pacemaker Gastrointestinal (Abdomen): Inspection/Auscultation: + abdomen distended and + abdominal edema Percussion/Palpation: + abdomen rigid and + ascites Musculoskeletal: no cyanosis or clubbing, extremities motor strength 5/5 Skin: + rash (BLE) Neurologic: moves all extremities and awake; no focal motor deficits and not confused Psychiatric: A+Ox3, euthymic affect Results & Data Vital Signs (Past 12 Hours) Vital Signs Temp Pulse Pulse Resp BP Pulse Ox O2 Del Method 10/17/24 08:06 79 10/17/24 07:49 36.5 C 76 20 147/82 H 98 Room Air 10/17/24 07:27 Room Air 10/17/24 03:19 36.2 C L 82 18 114/62 95 Room Air 10/16/24 22:46 36.6 C 82 18 119/67 93 Room Air 10/16/24 22:03 87
--- NOTE | 2024-10-17 10:02 | Hospitalist Progress Note ---
Date of Service October 17, 2024 Assessment & Plan (1) Acute on chronic kidney failure: Plan: Plan Assessment & Plan (1) Acute on chronic kidney failure 63 y/o with a PMHx of nephrotic syndrome, CKD IIIb/IV, GERD, HTN, severe COPD, alcoholic cirrhosis, IDDM, asthma, HLD who presented with LUQ, nausea, fullness, and bloating. Workup revealing of ascites, large pleural effusion, and acute on chronic renal failure. Admitted for management of fluid and electrolyte status. 2) Acute on chronic renal failure #Hyperkalemia #Ascites #Pleural effusion ARF on CKD IV. Large pleural effusion and marked ascites. Nephrology consult - rec 100 mg IV Lasix Q8H, continue Bicarb gtt - 150 mEq and D5, plan for access for CLINICAL RN, and IR drainage of abd/pleural space. Pulm consult to access for utility of thoracentesis. GI consult for cirrhosis management. IR for probable paracentesis and thoracentesis. Likely transudative fluid at present. No signs of SBP. If patient develops increased pain, fevers, change in mental status, or hemodynamic instability would consider addition of CTX and diagnostic paracentesis. Will need vascular access for HD - vascular surgery consulted. ASA held. NPO at midnight, hold ASA Fluids: HCO3 150 mEq + D5 @ 80 mL/hr K management - bicarb gtt, lasix, insulin 35 units , [facility] Consults: pulm, nephro, GI, vascular (2) Anemia due to chronic kidney disease/ Anemia of chronic disease/ Thrombocytopenia Likely secondary to CKD. Nephrology consulted. Studies notable for iron defic iency, elevated PTH, elevated phosphorus, low calcium, consistent w/ secondary hyperparathyroidism. May benefit from Venofer vs EPO - would defer to nephrology. (3) Ascites due to cirrhosis Patient denies continued drinking. States that he drank a lot when he was younger. MELD labs ordered. CT shows signs of varices, unclear if they would benefit from beta blockage. GI consulted would defer to them on spironolactone/beta jose initiation. GI consult, appreciate recs (4) Pleural effusion, right: (5) Anasarca: (6) Hyperkalemia: (7) Thrombocytopenia: Plan Code status: full DVT ppx: SCDs, chemo ppx contraindicated as patient will likely have interventions tomorrow, hold ASA Fluids: IVF @ 80 mL/hr HCO3 150 mEq + D5 Diet: renal dialysis and heart healthy diet, NPO @ midnight Dispo: PCU/tele, PT/OT for dispo planning, needs outpatient f/u for chronic conditions Admission and Anticipated Discharge Date Admission Date: October 15, 2024 Supervising Physician Co-Signing Physician Notes I personally examined the patient and verified all marinelli points of history and exam, discussed case, and agree with decision making with Dr Rivas seen after thoracentesis and paracentesis. Feeling better. Feels less pressure in his belly and feels like his breathing is easier. Feels like he can move around a little better. Vitals noted, in general he is awake and alert pleasant no distress. HEENT normocephalic atraumatic mucous membranes moist. Breathing unlabored no accessory muscle use good effort. Skin without rashes pallor or icterus. Neuro without focal deficits. Cirrhosis, ascites, hydrothorax, end-stage renal diseaseongoing med management, fluid drainage, supportive care. To initiate dialysis soon. Currently SCDs for DVT prophylaxis given multiple procedures. Otherwise as above. Subjective Patient had paracentesis performed today and scheduled tomorrow for his PermaCatheter Insertion. Discussed with patient his cirrhosis and he stated that he has not been drinking alcohol for years. Patient stated that what finally brought him in to the [facility] ED was the increased abdominal pressure he was experiencing and stated the swollen, distended abdomen had only been present for 1 1/2 weeks. Patient has been experiencing shortness of breath and swollen feet with difficulty ambulating these past few weeks also. Review of Systems Constitutional: + fatigue and + weakness; no fever and n o chills Cardiovascular: + orthopnea and + edema; no dyspnea at r est and no calf pain Gastrointestinal: + abdominal pain (increased abdominal pr essure) and + bloating; no change in bowel habits Genitourinary: no dysuria or no urinary frequency Physical Exam Constitutional: WD/WN, vitals as above Respiratory: normal respiratory effort and able to speak in complete sentences Cardiovascular: Rate/Rhythm: regular rate and regular rhythm Heart Sounds: no gallop and no murmur Extremities: + pedal edema and + edema; no calf tenderness Gastrointestinal (Abdomen): Inspection/Auscultation: + abdomen distended and normal bowel sounds Percussion/Palpation: + abdomen rigid and + tympanic to percussion Psychiatric: A+Ox3, euthymic affect Results & Data Results & Data Vital Signs (Past 12 Hours) Vital Signs Temp Pulse Pulse Resp BP Pulse Ox O2 Del Method 10/17/24 08:06 79 10/17/24 07:49 36.5 C 76 20 147/82 H 98 Room Air 10/17/24 07:27 Room Air 10/17/24 03:19 36.2 C L 82 18 114/62 95 Room Air 10/16/24 22:46 36.6 C 82 18 119/67 93 Room Air 10/16/24 22:03 87
[2024-10-17] MEDS: SEVELAMER CARBONATE 800 MG TAB PO SCH (12:15)
--- NOTE | 2024-10-17 14:08 | Pulmonology Progress Note ---
Date of Service October 17, 2024 Assessment & Plan (1) Pleural effusion, right: (2) Ascites due to alcoholic cirrhosis: (3) Dyspnea on exertion: (4) Anasarca: Plan Impression: 63-year-old male with anasarca, pleural effusions, and ascites. He has kidney disease and is progressing to requiring renal replacement therapy. He has known cirrhosis with evidence of varices on CT scan. Recommendations: 1. Pleural effusion: Patient undergoing thoracentesis by radiology today. 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 If transudative fluid is confirmed, management is typically diuretics which in this patient will not be appropriate given his kidney function. If refractory hepatic hydrothorax to dialysis, would recommend transfer to tertiary facility for consideration of TIPS. No role for indwelling pleural catheter placement or serial thoracentesis. Pulmonary will sign off at this point in time. Feel free to contact us with questions or concerns Admission and Anticipated Discharge Date Admission Date: October 15, 2024 Subjective Attempted to see patient however he was off the floor having a procedure. Discussed with nursing. Chart was reviewed. No events overnight. Plans are apparently to proceed with permacath placement tomorrow and thoracentesis paracentesis today Review of Systems 2 Review of Systems: Deferred Physical Exam 2 Physical Exam: Exam deferred as patient not in the room Results & Data Results & Data Vital Signs (Past 12 Hours) Vital Signs Temp Pulse Pulse Resp BP Pulse Ox O2 Del Method 10/17/24 13:54 66 10/17/24 12:19 36.3 C L 66 18 91/59 L 97 Room Air 10/17/24 08:06 79 10/17/24 07:49 36.5 C 76 20 147/82 H 98 Room Air 10/17/24 07:27 Room Air 10/17/24 03:19 36.2 C L 82 18 114/62 95 Room Air Laboratory Results 10/17/24 05:31 10/17/24 05:31 PG Care Time/CCT Total # of Minutes Spent Total Time Spent with Patient: Total time spent is greater than 50% in coordination of care (as documented) at patient's floor/unit and/or counseling patient: Coding Level of Care Code 43596 SUB INP/OBS CARE 10/01MIN Diagnoses Pleural effusion, right J90 Ascites due to alcoholic cirrhosis K70.31 Dyspnea on exertion R06.09 Anasarca R60.1
--- NOTE | 2024-10-17 14:37 | Gastrointestinal Consultation ---
Date of Consultation October 17, 2024 Assessment & Plan (1) Ascites due to alcoholic cirrhosis: (2) Hepatitis C: (3) Cirrhosis: Plan -Track MELD score daily -Diuretic management per nephrology -Needs an outpatient cd mixer for treatment/monitoring of his hep C cirrhosis -No signs of HE on my evaluation today -Paracentesis with fluid studies today -Avoid NSAIDs -Will need eventual EGD for variceal surveillance--I'm unclear who has been doing his EGDs for his Chapman's, but I presume [facility] and will look into this. -Monitor CBC/platelets -Limit Tylenol to <2000 mg daily -2 gm sodium restricted diet when eating Supervising Physician Co-Signing Physician Notes Reviewed above. Agree with plan per IGNACIO Watters. Paracentesis. Patient has decompensated cirrhosis. Management of hepatitis C her can be complicated. Typically this would be done at the hepatology level. Risk of deterioration with hepatitis C treatments. No signs of active gastrointestinal bleeding. His pleural effusions are probably related to his ascites. Await pleural fluid analysis. History of Present Illness Reason for Consultation: Hep C cirrhosis Attending Physician: Chriss Chacko DO History of Present Illness Patient is a 63 yo male with PMH of nephrotic syndrome, stage 4 CKD, GERD, syncope, hypertension, vitamin D deficiency, COPD, alcohol use, diabetic nephropathy, tobacco abuse, Chapman's Esophagus, asthma, & HLD. The patient awas admitted with abdominal pain. He notes that for over 1 week he has had progression of generalized swelling. He had imaging upon admission that shows ascites and hepatic hydrothorax. Nephrology following for diuretic adjustments. He was found to be positive for hepatitis C. Labs on presentation showed hyperkalemia with K of 6.3. Acute renal failure noted. He denies seeing a cd mixer in the past. He did not know about his hepatitis C status. He is awaiting a paracentesis & thoracentesis. MELD 21 largely due to kidney issues. T bili 0.5, AST 18, ALT 9. Allergies Allergy/AdvReac Type Severity Reaction Status Date / Time No Known Allergies Allergy Verified 06/02/24 10:04 Home Medications Medication Instructions Recorded Confirmed Type aspirin 81 mg tablet,delayed 81 mg PO DAILY 06/16/20 10/15/24 History release furosemide 20 mg tablet (Lasix) 20 mg PO DAILY #30 tabs 11/06/23 10/15/24 Rx carvedilol 6.25 mg tablet 6.25 mg PO BID #60 tabs 11/13/23 10/15/24 Rx albuterol sulfate 90 mcg/actuation 1 puff inhalation Q4H PRN 06/02/24 10/15/24 Rx aerosol inhaler shortness of breath or wheezing #18 grams amlodipine 5 mg tablet 10 mg (2 x 5 mg) PO DAILY #180 tabs 06/02/24 10/15/24 Rx atorvastatin 40 mg tablet 40 mg PO DAILY #90 tabs 06/02/24 10/15/24 Rx blood sugar diagnostic (OneTouch #400 ea 06/02/24 Rx Verio test strips) cholecalciferol (vitamin D3) 1,250 50,000 unit PO .weekly #12 caps 06/02/24 10/15/24 Rx mcg (50,000 unit) capsule insulin aspart U-100 100 unit/mL See Rx Instructions .Route 06/02/24 10/15/24 Rx (3 mL) subcutaneous pen (Novolog .COMPLEX #15 mL FlexPen U-100 Insulin aspart) insulin glargine 100 unit/mL (3 70 unit (0.7 mL) subcut HS #60 mL 06/02/24 10/15/24 Rx mL) subcutaneous pen (Lantus Solostar U-100 Insulin) lancets 33 gauge #400 ea 06/02/24 Rx lisinopril 40 mg tablet 40 mg PO DAILY #90 tabs 06/02/24 10/15/24 Rx omeprazole 20 mg capsule,delayed 20 mg PO DAILY #90 caps 06/02/24 10/15/24 Rx release pen needle, diabetic 32 gauge x #500 ea 06/02/24 Rx 5/32" (BD Ultra-Fine Olivia Pen Needle) triamcinolone acetonide 0.1 % 1 applic topical BID PRN Skin 06/02/24 10/15/24 Rx topical cream Irritation #80 grams Patient History Medical History Acute kidney injury Type 2 diabetes mellitus Surgical History No pertinent past surgical history Family History Grandfather Colon cancer Mother Leukemia Father Diabetes Hypertension Myocardial infarction Grandfather Colon cancer Denies family history of Ovarian cancer Prostate cancer Breast cancer Social History Smoking Status: Current every day smoker Tobacco Type: Cigarettes Age Started Using Tobacco: 17; packs per day: 1; Cigarettes Per Day: 1 pack per day; Second Hand Exposure: No; Do You Dip or Chew Tobacco: No; Hx Alcohol Use: Yes Hx Substance Use: No Preferred Language: Yi Communication Ability: Effective Surveyor Hydrographic Required: No Beliefs That Will Affect Care: None marital status: Current Living Situation: Spouse current occupational status: unemployed Other Information That Helps Us Care for You: No Feels Safe at Home: Yes Safety Concerns: Feels Safe At This Time Childhood Exposure to Second-Hand Smoke: Yes Dental Care, Regularly: No Physical Activity Frequency: Does not Exercise Seatbelt Use: always Sunscreen Use: No Assistive Devices: None Review of Systems Constitutional: no fever and no chills Respiratory: no cough and no dyspnea Gastrointestinal: swelling Musculoskeletal: edema Physical Exam Constitutional: well developed Gastrointestinal (Abdomen): ascites Psychiatric: Orientation: alert and oriented x 3 Results & Data Vital Signs (Past 12 Hours) Vital Signs Temp Pulse Pulse Resp BP Pulse Ox O2 Del Method 10/17/24 13:54 66 10/17/24 12:19 36.3 C L 66 18 91/59 L 97 Room Air 10/17/24 08:06 79 10/17/24 07:49 36.5 C 76 20 147/82 H 98 Room Air 10/17/24 07:27 Room Air 10/17/24 03:19 36.2 C L 82 18 114/62 95 Room Air PG Care Time/CCT Total # of Minutes Spent Total Time Spent with Patient: Total time spent is greater than 50% in coordination of care (as documented) at patient's floor/unit and/or counseling patient: Coding Level of Care Code 18012 IN/OBS CONSULT LVL 4,60M Diagnoses Ascites due to alcoholic cirrhosis K70.31 Hepatitis C B19.20 Cirrhosis K70.31 Ascites presence: with ascites Hepatic cirrhosis type: alcoholic cirrhosis (3) Cirrhosis Ascites presence: with ascites Hepatic cirrhosis type: alcoholic cirrhosis Qualified Code(s): K70.31 - Alcoholic cirrhosis of liver with ascites
--- NOTE | 2024-10-17 15:51 | Ultrasound Report ---
ULTRASOUND-GUIDED PARACENTESIS CLINICAL HISTORY: Ascites PROCEDURE: Procedure and risks were explained. Informed consent was obtained. A final timeout was com pleted. The abdomen was prepped and draped in sterile fashion. 1% lidocaine was utilized for skin ane sthesia. Utilizing ultrasound guidance, a 5 Yakut safety centesis catheter was advanced into the right lower quadrant pocket of ascites. Ultrasound images were obtained. A total of 2 L of ascites fluid was barbara lamonte, with 1 L sent to the lab. The catheter was removed and Band-Aid applied. The patient tolerated t he procedure well. Vital signs will be monitored postprocedure. IMPRESSION: Ultrasound-guided paracentesis as above. Performed, dictated, and signed by Drew Cee PA-C; to be co-signed by Dr. Angel Garcia. Electronically signed by: Angel Garcia M.D. 10/17/2024 3:58 PM
--- NOTE | 2024-10-17 15:53 | Ultrasound Report ---
ULTRASOUND-GUIDED RIGHT THORACENTESIS CLINICAL HISTORY: Right pleural effusion PROCEDURE: Procedure and risks were explained. Informed consent was obtained. A final timeout was com pleted. The right posterior thorax was prepped and draped in sterile fashion. 1% lidocaine was utiliz ed for skin anesthesia. Utilizing ultrasound guidance, a 5 Sami safety centesis catheter was advanced into the right pleura l effusion. Ultrasound images were obtained. A total of 1.5 L of pleural fluid was removed, with 1 L sent to the lab. The catheter was removed and Band-Aid applied. The patient tolerated the procedure w ell. A chest x-ray will be obtained post procedure. Vital signs will be monitored on the floor. IMPRESSION: Ultrasound-guided right thoracentesis as above. Performed, dictated, and signed by Drew Cee PA-C; to be co-signed by Dr. Angel Garcia. Electronically signed by: Angel Garcia M.D. 10/17/2024 3:58 PM
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
[2024-10-17 16:48] LABS: Amylase Pleural Fluid 23 U/L; Glucose Pleural Fluid 106 mg/dl; LDH Pleural Fluid 45 U/L; Total Protein Pleural Fluid < 3.0 gm/dl
[2024-10-17 16:49] LABS: Albumin Peritoneal Fluid < 1.5 gm/dl; Total Protein Peritoneal Fluid < 3.0 gm/dl
[2024-10-17 17:21] LABS: Appearance Pleural Fluid Hazy; Color Pleural Fluid Pale Yellow; Lymphocytes, Fluid 5 %; Mono,Macrophage,Mesothelial 93 %; Neutrophils, Fluid 2 %; RBC Pleural Fluid Auto < 2000 /uL; Source Pleural Fluid Right Lung; WBC Pleural Fluid Auto 135 /uL
[2024-10-17 17:22] LABS: Appearance Peritoneal Fluid Hazy; Color Peritoneal Fluid Pale Yellow; Lymphocytes, Fluid 20 %; Mono,Macrophage,Mesothelial 76 %; Neutrophils, Fluid 4 %; RBC Peritoneal Fluid Auto < 2000 /uL; WBC Peritoneal Fluid Auto 158 /ul (0-300)
[2024-10-17 18:00] LABS: Hep B Surface Ag with confirm Negative (Negative)
[2024-10-17 18:09] LABS: Hepatitis B Surface Ab Quant 3.41 mIU/mL (>or=10mIU/mL Immune); Hepatitis B Surface Antibody Non-Immune
--- NOTE | 2024-10-17 18:10 | Billing Data ---
Date of Service October 17, 2024 Coding Level of Care Code 56642 SUB INP/OBS CARE MIN
[2024-10-18 05:42] LABS: Basophils # (auto) 0.03 K/uL (0.00-0.20); Basophils % (auto) 0.5 %; Eosinophils # (auto) 0.49 K/uL (0.00-0.50); Eosinophils % (auto) 7.8 %; Hematocrit (blood only) 22.8 % (42.0-52.0); Hemoglobin 7.5 g/dl (14.0-18.0); Immature Granulocytes # (auto) 0.04 K/uL (0.01-0.20); Immature Granulocytes % (auto) 0.6 %; Lymphocytes % (auto) 17.6 %; Mean Corpuscular Hemoglobin 30.2 pg (25.0-34.0); Mean Corpuscular Hgb Conc 32.9 g/dL (32.0-36.0); Mean Corpuscular Volume 91.9 fL (80.0-100.0); Mean Platelet Volume 9.9 fL (9.4-12.4); Monocytes # (auto) 0.55 K/uL (0.11-0.59); Monocytes % (auto) 8.8 %; Neutrophils # (auto) 4.05 K/uL (1.40-6.50); Neutrophils % (auto) 64.7 %; Platelet Count 78 K/uL (130-400); RDW Coefficient of Variation 18.1 % (11.5-14.5); RDW Standard Deviation 59.9 fL (36.4-46.3); Red Blood Count 2.48 M/uL (4.70-6.10); White Blood Count 6.26 K/ul (4.8-10.8)
[2024-10-18 06:01] LABS: BUN Creatinine Ratio 12.9 (10-20); Calcium 6.6 mg/dl (8.6-10.3); Creatinine Clr Calc Pharmacy 13.2 ml/min; Magnesium 1.6 mg/dl (1.7-2.4); Phosphorus 6.5 mg/dl (2.5-4.9); Potassium 4.4 mmol/L (3.5-5.1)
[2024-10-18 06:07] LABS: Polychromasia 1+
--- NOTE | 2024-10-18 08:17 | Hospitalist Progress Note ---
Date of Service October 18, 2024 Assessment & Plan (1) Acute on chronic kidney failure: Plan: Plan Assessment & Plan 63 y/o with a PMHx of nephrotic syndrome, CKD IIIb/IV, GERD, HTN, severe COPD, alcoholic cirrhosis, IDDM, asthma, HLD who presented with LUQ, nausea, fullness, and bloating. Workup revealing of ascites, large pleural effusion, and acute on chronic renal failure. Admitted for management of fluid and electrolyte status 1) Ascites/ pleural effusion/ anasarca all due to Cirrhosis Patient denied continued drinking. States that he drank a lot when he was younger. MELD labs ordered daily, MELD score, 19 (w/ today pre-dialysis data) CTP score of 9 (w/ today's pre-dialysis data) CT shows signs of varices, unclear if they would benefit from beta blockage 2) Hepatitis C infection - likely etiology, at least in part, of pt's cirrhosis (positive in Jun 2020) - doesn't appear that patient had previous Hep C treatment . 3) Acute on chronic renal failure/ Hyperkalemia/ Ascites/ Pleural effusion ARF on CKD IV. Large pleural effusion and marked ascites. - Nephrology consult - rec 100 mg IV Lasix Q8H, continue Bicarb gtt - 150 mEq and D5, plan for access for CV/CVN CV TSC SYSTEM OPERATOR, and IR drainage of abd/pleural space. - Pulm consult to access for utility of thoracentesis. - GI consult for cirrhosis management. - IR for probable paracentesis and thoracentesis. Likely transudative fluid at present. No signs of SBP. - If patient develops increased pain, fevers, change in mental status, or hemodynamic instability would consider addition of CTX and diagnostic paracentesis. Will need vascular access for HD - vascular surgery consulted. ASA held but consider re-starting s/p central catheter placement NPO at midnight, hold ASA Fluids: HCO3 150 mEq + D5 @ 80 mL/hr K, 4.4 (before dialysis) --> management - bicarb gtt, lasix, insulin HS, Lokelma insulin changed to 10 units, qHS Patient now s/p paracentesis and s/p thoracentesis 4) Anemia due to chronic kidney disease/ Anemia of chronic disease/ Thrombocytopenia Hgb, 7.5 <-- 9.2 Plt, 78 <-- 100 - Likely secondary to CKD. Nephrology consulted. - Studies notable for iron deficiency, elevated PTH, elevated phosphorus, low calcium, consistent w/ secondary hyperparathyroidism. - May benefit from Venofer vs EPO - would defer to nephrology --> they started EPO 5) Hyperkalemia K, 4.4 (before dialysis) --> management - bicarb gtt, lasix, insulin HS, Lokelma Plan Code status: Full DVT ppx: SCDs, chemo ppx contraindicated as patient will likely have interventions tomorrow, hold ASA Fluids: IVF @ 80 mL/hr HCO3 150 mEq + D5 Diet: renal dialysis and heart healthy diet Dispo: PCU/tele, PT/OT for dispo planning, needs outpatient f/u for chronic conditions Admission and Anticipated Discharge Date Admission Date: October 15, 2024 Supervising Physician Co-Signing Physician Notes I personally examined the patient and verified all marinelli points of history and exam, discussed case, and agree with decision making with Dr Rivas feeling ok no new issues has done well today. Vitals noted, in general he is awake and alert pleasant no distress. HEENT normocephalic atraumatic mucous membranes moist. Breathing unlabored no accessory muscle use good effort. Skin without rashes pallor or icterus. Neuro without focal deficits. Cirrhosis, ascites, hydrothorax, end-stage renal diseaseongoing med management, fluid drainage, supportive care. HD. SCDs for DVT proph although possibly by tomorrow with procedures likely being completed could potentially start pharmacologic proph otherwise as above Subjective Patient had paracentesis and thoracentesis performed yesterday and had his PermaCatheter Insertion done today. Patient's predominant Sx upon admission was the increased abdominal pressure and distended abddomen hed felt for 1 1/2 weeks. Today patient complaining about scrotal swelling that he states is new onset since admission. Continues to have swollen feet with difficulty ambulating, but feels like his breathing is much easier today. Thinks he may have been more dyspneic than he realized. Review of Systems Constitutional: + fatigue Respiratory: no cough, no chest congestion and no dyspnea on exertion Cardiovascular: + edema; no chest pain, no palpitations and no calf pain Gastrointestinal: no abdominal pain, no bloating and no change in bowel habits Genitourinary: + scrotal swelling; no dysuria or no uri nary frequency Physical Exam Constitutional: WD/WN, vitals as above Respiratory: normal respiratory effort and able to speak in complete sentences Cardiovascular: Rate/Rhythm: regular rate and regular rhythm Heart Sounds: no gallop and no murmur Extremities: + pedal edema and + edema; no calf tenderness Gastrointestinal (Abdomen): Inspection/Auscultation: + abdomen distended and normal bowel sounds Percussion/Palpation: + abdomen rigid and + tympanic to percussion Psychiatric: A+Ox3, euthymic affect Genitourinary: + scrotum abnormality, + circumcised, + edematous scrotum, + erythematous scrotum (red scrotum but not dark red, also not indurated) and + scrotal swelling Results & Data Results & Data Vital Signs (Past 12 Hours) Vital Signs Temp Pulse Pulse Pulse Resp BP Pulse Ox 10/18/24 07:28 36.6 C 76 18 116/66 95 10/18/24 07:15 82 10/18/24 03:00 36.6 C 82 18 99/50 L 94 10/17/24 23:00 36.6 C 76 18 142/73 H 96 10/17/24 22:20 77 O2 Del Method 10/18/24 07:28 Room Air 10/18/24 07:15 10/18/24 03:00 Room Air 10/17/24 23:00 Room Air 10/17/24 22:20
--- NOTE | 2024-10-18 08:50 | Nephrology Progress Note ---
Date of Service October 18, 2024 Assessment & Plan (1) End stage chronic kidney disease: Plan: * ESKD due to DKD * Outpatient evaluation in 2022 revealed a nonnephritic urine sediment. Renal imaging was negative for hydronephrosis. Testing for monoclonal gammopathy, PLA2R Ab were both negative. * Baseline creatinine had been 1.7. Patient was noted to have a precipitous decline in renal function 07/30. Creatinine had risen to 2.9. Patient was subsequently lost to outpatient nephrology follow-up * 10/15/[address] - simple bilateral renal cysts. 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 Discussed KDIGO CKD staging with patient and his . Explained that patient would benefit from initiation of HD for volume management and correction of electrolyte/acid-base status. Indications/benefits/risks/alternatives to HD were discussed in detail. Patient voiced understanding and indicated that he would like to proceed with dialysis. * Protect L arm for future vascular access * Start nephrovite one daily * Vascular surgery has scheduled IJ TCC placement later this morning * Plan 1st run HD after IJ TCC placed * Case management has been consulted to set up outpatient HD at [facility] [place] w/ Dr. Sandhu (2) Hyperkalemia: Plan: * Corrected w/ medical management * Continue to monitor BMP (3) Anasarca: Plan: * Will d/c furosemide and provide UF w/ HD (4) Cirrhosis: Plan: * History of hepatitis C+ and heavy alcohol use * Documented history of hepatic steatosis * Will need outpatient follow up w/ [facility] gastroenterology/hepatology for management of hep C cirrhosis * Patient underwent 2 L paracentesis by VIR 10/17/24 (5) Pleural effusion: Plan: * Large right pleural effusion with collapse of the middle and lower lobes of the right lung * Patient is s/p 1.5 L R thoracentesis by VIR 10/17/24 * Once effusion is resolved patient may require evaluation for possible mucous plugging or endobronchial lesion. He does have a longstanding history of tobacco use, COPD * Pulmonology is following (6) Hepatitis C: (7) Diabetes mellitus type 2, uncontrolled, with complications: (8) Diabetic retinopathy, nonproliferative, severe: (9) COPD (chronic obstructive pulmonary disease): Admission and Anticipated Discharge Date Admission Date: October 15, 2024 Subjective Mr. Jones was evaluated in his hospital room this morning. He was breathing comfortably on RA. He was awaiting IJ TCC placement Review of Systems Constitutional: no fever Eyes: no problem reported Ear, Nose, Mouth, Throat: no problem reported Respiratory: + dyspnea; no cough Cardiovascular: no chest pain Gastrointestinal: + abdominal pain (Left upper quadrant) Physical Exam Constitutional: not in distress (Breathing comfortably on RA) Eyes: PERRL, conjunctivae normal, anicteric sclerae ENMT: external ear and nose normal, oropharynx normal Neck: trachea midline, no thyromegaly Respiratory: normal respiratory effort (Diminished breath sounds right side); no respiratory distress Cardiovascular: Rate/Rhythm: regular rate and regular rhythm Heart Sounds: no murmur and no cardiac rub Extremities: + edema (2+ edema of the arms and legs) Gastrointestinal (Abdomen): Inspection/Auscultation: + abdomen distended and + hypoactive bowel sounds Percussion/Palpation: abdomen nontender and no guarding Musculoskeletal: Extremities: no cyanosis Neurologic: awake; not confused Results & Data Vital Signs (Past 12 Hours) Vital Signs Temp Pulse Pulse Pulse Resp BP Pulse Ox 10/18/24 07:28 36.6 C 76 18 116/66 95 10/18/24 07:15 82 10/18/24 03:00 36.6 C 82 18 99/50 L 94 10/17/24 23:00 36.6 C 76 18 142/73 H 96 10/17/24 22:20 77 O2 Del Method 10/18/24 07:28 Room Air 10/18/24 07:15 10/18/24 03:00 Room Air 10/17/24 23:00 Room Air 10/17/24 22:20 Laboratory Results Laboratory Results - last 24 hr 10/17/24 10/17/24 10/17/24 11:59 15:30 15:30 WBC RBC Hgb Hct MCV MCH MCHC RDW Std Deviation RDW Coeff of Ca Plt Count MPV Immature Gran % (Auto) Neut % (Auto) Lymph % (Auto) [place] % (Auto) Eos % (Auto) Baso % (Auto) Neut # (Auto) Lymph # (Auto) [place] # (Auto) Eos # (Auto) Baso # (Auto) Immature Gran # (Auto) Polychromasia Sodium Potassium Chloride Carbon Dioxide Anion Gap BUN Creatinine Est Cr Clr Drug Dosing eGFR BUN/Creatinine Ratio Glucose POC Glucose 77 Calcium Phosphorus Magnesium Fluid Neutrophils % 4 2 Fluid Lymphocytes % 20 Fluid Meso/Macro/[place] % Fluid Comment Peritoneal Color Peritoneal Appearance Peritoneal WBC (Auto) Peritoneal RBC (Auto) Peritoneal Tot Protein Peritoneal Albumin Pleural Fluid Source Pleural Color Pleural Appearance Pleural pH Pleural WBC (Auto) Pleural RBC (Auto) Pleural Total Protein Pleural LDH Pleural Glucose Pleural Amylase Hep Bs Antigen Hep Bs Antibody Hep Bs Antibody, Quant Hep B Core IgM Ab 10/17/24 10/17/24 10/17/24 15:30 15:30 15:30 WBC RBC Hgb Hct MCV MCH MCHC RDW Std Deviation RDW Coeff of Ca Plt Count MPV Immature Gran % (Auto) Neut % (Auto) Lymph % (Auto) [place] % (Auto) Eos % (Auto) Baso % (Auto) Neut # (Auto) Lymph # (Auto) [place] # (Auto) Eos # (Auto) Baso # (Auto) Immature Gran # (Auto) Polychromasia Sodium Potassium Chloride Carbon Dioxide Anion Gap BUN Creatinine Est Cr Clr Drug Dosing eGFR BUN/Creatinine Ratio Glucose POC Glucose Calcium Phosphorus Magnesium Fluid Neutrophils % Fluid Lymphocytes % 5 Fluid Meso/Macro/[place] % 76 93 Fluid Comment Peritoneal Color Pale Yellow Peritoneal Appearance Hazy Peritoneal WBC (Auto) 158 Peritoneal RBC (Auto) < 2000 Peritoneal Tot Protein < 3.0 Peritoneal Albumin < 1.5 Pleural Fluid Source Right Lung Pleural Color Pale Yellow Pleural Appearance Hazy Pleural pH 7.38 Pleural WBC (Auto) 135 Pleural RBC (Auto) < 2000 Pleural Total Protein < 3.0 Pleural LDH 45 Pleural Glucose 106 Pleural Amylase 23 Hep Bs Antigen Hep Bs Antibody Hep Bs Antibody, Quant Hep B Core IgM Ab 10/17/24 10/17/24 10/17/24 16:37 16:40 20:52 WBC RBC Hgb Hct MCV MCH MCHC RDW Std Deviation RDW Coeff of Ca Plt Count MPV Immature Gran % (Auto) Neut % (Auto) Lymph % (Auto) [place] % (Auto) Eos % (Auto) Baso % (Auto) Neut # (Auto) Lymph # (Auto) [place] # (Auto) Eos # (Auto) Baso # (Auto) Immature Gran # (Auto) Polychromasia Sodium Potassium Chloride Carbon Dioxide Anion Gap BUN Creatinine Est Cr Clr Drug Dosing eGFR BUN/Creatinine Ratio Glucose POC Glucose 96 190 H Calcium Phosphorus Magnesium Fluid Neutrophils % Fluid Lymphocytes % Fluid Meso/Macro/[place] % Fluid Comment Peritoneal Color Peritoneal Appearance Peritoneal WBC (Auto) Peritoneal RBC (Auto) Peritoneal Tot Protein Peritoneal Albumin Pleural Fluid Source Pleural Color Pleural Appearance Pleural pH Pleural WBC (Auto) Pleural RBC (Auto) Pleural Total Protein Pleural LDH Pleural Glucose Pleural Amylase Hep Bs Antigen Negative Hep Bs Antibody Non-Immune Hep Bs Antibody, Quant 3.41 Hep B Core IgM Ab Pending 10/18/24 10/18/24 04:59 06:50 WBC 6.26 RBC 2.48 L Hgb 7.5 L Hct 22.8 L MCV 91.9 MCH 30.2 MCHC 32.9 RDW Std Deviation 59.9 H RDW Coeff of Ca 18.1 H Plt Count 78 L MPV 9.9 Immature Gran % (Auto) 0.6 Neut % (Auto) 64.7 Lymph % (Auto) 17.6 [place] % (Auto) 8.8 Eos % (Auto) 7.8 Baso % (Auto) 0.5 Neut # (Auto) 4.05 Lymph # (Auto) 1.[address] [place] # (Auto) 0.55 Eos # (Auto) 0.49 Baso # (Auto) 0.03 Immature Gran # (Auto) 0.04 Polychromasia 1+ Sodium 140 Potassium 4.4 Chloride 114 H Carbon Dioxide 18 L Anion Gap 8 BUN 76 H Creatinine 5.91 H* Est Cr Clr Drug Dosing 13.2 eGFR 10.09 BUN/Creatinine Ratio 12.9 Glucose 108 H POC Glucose 112 H Calcium 6.6 L Phosphorus 6.5 H Magnesium 1.6 L Fluid Neutrophils % Fluid Lymphocytes % Fluid Meso/Macro/[place] % Fluid Comment Peritoneal Color Peritoneal Appearance Peritoneal WBC (Auto) Peritoneal RBC (Auto) Peritoneal Tot Protein Peritoneal Albumin Pleural Fluid Source Pleural Color Pleural Appearance Pleural pH Pleural WBC (Auto) Pleural RBC (Auto) Pleural Total Protein Pleural LDH Pleural Glucose Pleural Amylase Hep Bs Antigen Hep Bs Antibody Hep Bs Antibody, Quant Hep B Core IgM Ab PG Care Time/CCT Total # of Minutes Spent Total Time Spent with Patient: Total time spent is greater than 50% in coordination of care (as documented) at patient's floor/unit and/or counseling patient: Coding Level of Care Code 58262 SUB INP/OBS CARE 3/50MIN Diagnoses End stage chronic kidney disease N18.6 Hyperkalemia E87.5 Anasarca R60.1 Cirrhosis K70.31 Ascites presence: with ascites Hepatic cirrhosis type: alcoholic cirrhosis Pleural effusion J90 Hepatitis C B19.20 Diabetes mellitus type 2, uncontrolled, with complications E11.8; E11.65 Diabetic retinopathy, nonproliferative, severe E11.3499 COPD (chronic obstructive pulmonary disease) J44.9 (4) Cirrhosis Ascites presence: with ascites Hepatic cirrhosis type: alcoholic cirrhosis Qualified Code(s): K70.31 - Alcoholic cirrhosis of liver with ascites
[2024-10-18] MEDS: DEXTROSE 50% 50 ML SYRINGE IV PRN (09:22)
--- NOTE | 2024-10-18 10:24 | History & Physical Bridge Note ---
Date of Service October 18, 2024 History & Physical Bridge Note Patient for insertion of permcath today. I have discussed the risks options and benefits of the procedure with the patient. The patient understands the risks options and benefits and agrees to the procedure. I have examined the patient, reviewed the History & Physical and in the interval since the performance of the History & Physical I have noted the following changes of clinical significance: no changes noted
[2024-10-18] MEDS: ceFAZolin 2000MG 2,000 MG/15 ML SYR IV ONE (10:38)
[2024-10-18] MEDS ORDERED: LIDOCAINE 2% MPF LOCAL 5 ML VIAL ONE (10:52)
--- NOTE | 2024-10-18 10:54 | Pre Anesthesia Assessment ---
Date of Service October 18, 2024 Pre Sedation Assessment Vital Signs Temp Pulse Pulse Pulse Resp BP BP 10/18/24 08:50 36.8 C 76 16 137/80 10/18/24 07:45 10/18/24 07:28 36.6 C 76 18 116/66 10/18/24 07:15 82 10/18/24 03:00 36.6 C 82 18 99/50 L 10/17/24 23:00 36.6 C 76 18 142/73 H 10/17/24 22:20 77 10/17/24 20:00 10/17/24 19:32 36.3 C L 71 18 123/67 10/17/24 17:58 70 119/61 10/17/24 16:29 36.3 C L 80 104/63 10/17/24 13:54 66 10/17/24 12:19 36.3 C L 66 18 91/59 L Pulse Ox O2 Del Method 10/18/24 08:50 98 Room Air 10/18/24 07:45 Room Air 10/18/24 07:28 95 Room Air 10/18/24 07:15 10/18/24 03:00 94 Room Air 10/17/24 23:00 96 Room Air 10/17/24 22:20 10/17/24 20:00 Room Air 10/17/24 19:32 96 Room Air 10/17/24 17:58 98 Room Air 10/17/24 16:29 91 Room Air 10/17/24 13:54 10/17/24 12:19 97 Room Air Cardiovascular RRR, no murmur, no edema Respiratory normal respiratory effort, lungs clear to auscultation Pre-Sedation Airway Assessment Smoking Status: Current every day smoker Hx Sleep Apnea: No Short, Thick Neck: No Thyromental Distance: > or= 3.5 Finger Breadths Oral Cavity: + WNL Mallampati Class: II ASA: ASA4 NPO Status Date of Last Intake of Fluids: 10/17/24 Time of Last Intake of Fluids: 22:00 Date of Last Intake of Solid Food: 10/17/24 Time of Last Intake of Solid Foods: 22:00 Procedure Planning Contraindications for Sedation: none Current Medications Reviewed: Yes Notes The planned sedation has been discussed with the patient. Informed Consent was obtained. I have identified the patient, determined the appropriateness of sedation and have assessed the patient immediately prior to the procedure. All medicine(s) and interventions are by my order.
[2024-10-18] MEDS: fentaNYL citrate PF 100 MCG/2 ML VIAL ONE (11:05)
[2024-10-18] MEDS: MIDAZOLAM HCL 1 MG/ML 2ML VIAL ONE (11:06)
[2024-10-18] MEDS: LIDOCAINE 1% LOCAL 20 ML VIAL ONE ×2 (11:10→15:12)
--- NOTE | 2024-10-18 11:18 | Gastroenterology Progress Note ---
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 Subjective Patient is a 63 yo male with cirrhosis. He is off the floor today for placement of a dialysis catheter. He underwent a thoracentesis & paracentesis on 10/17/24. SAAG 0.8. No evidence of SBP. Appears to be transudative fluid. H/H 7.5/22.8. BUN 76. Cr 5.91. Plans for dialysis after catheter placement. Review of Systems Review of Systems: Feels improved post paracentesis. Main complaint is scrotal swelling. Physical Exam Physical Exam: Still some ascites. Less tense than yesterday. Patient is sitting up eating orientated. Does not appear acutely toxic. Results & Data Results & Data Vital Signs (Past 12 Hours) Vital Signs Temp Pulse Pulse Pulse Resp BP Pulse Ox 10/18/24 11:10 81 16 105/66 100 10/18/24 11:05 77 16 106/73 100 10/18/24 11:00 79 16 125/84 100 10/18/24 08:50 36.8 C 76 16 137/80 98 10/18/24 07:45 10/18/24 07:28 36.6 C 76 18 116/66 95 10/18/24 07:15 82 10/18/24 03:00 36.6 C 82 18 99/50 L 94 O2 Del Method O2 Flow Rate 10/18/24 11:10 Oxymask 4 10/18/24 11:05 Oxymask 4 10/18/24 11:00 Oxymask 4 10/18/24 08:50 Room Air 10/18/24 07:45 Room Air 10/18/24 07:28 Room Air 10/18/24 07:15 10/18/24 03:00 Room Air PG Care Time/CCT Total # of Minutes Spent Total Time Spent with Patient: Total time spent is greater than 50% in coordination of care (as documented) at patient's floor/unit and/or counseling patient: Coding Level of Care Code 59162 SUB INP/OBS CARE 2MIN Diagnoses Cirrhosis K70.31 Ascites presence: with ascites Hepatic cirrhosis type: alcoholic cirrhosis (1) Cirrhosis Ascites presence: with ascites Hepatic cirrhosis type: alcoholic cirrhosis Qualified Code(s): K70.31 - Alcoholic cirrhosis of liver with ascites
--- NOTE | 2024-10-18 11:19 | Post Anesthesia Assessment ---
Date of Service October 18, 2024 Post Sedation Assessment Vital Signs Temp Pulse Pulse Pulse Resp BP BP 10/18/24 11:17 81 16 105/66 10/18/24 11:10 81 16 105/66 10/18/24 11:05 77 16 106/73 10/18/24 11:00 79 16 125/84 10/18/24 08:50 36.8 C 76 16 137/80 10/18/24 07:45 10/18/24 07:28 36.6 C 76 18 116/66 10/18/24 07:15 82 10/18/24 03:00 36.6 C 82 18 99/50 L 10/17/24 23:00 36.6 C 76 18 142/73 H 10/17/24 22:20 77 10/17/24 20:00 10/17/24 19:32 36.3 C L 71 18 123/67 10/17/24 17:58 70 119/61 10/17/24 16:29 36.3 C L 80 104/63 10/17/24 13:54 66 10/17/24 12:19 36.3 C L 66 18 91/59 L Pulse Ox O2 Del Method O2 Flow Rate 10/18/24 11:17 100 Oxymask 4 10/18/24 11:10 100 Oxymask 4 10/18/24 11:05 100 Oxymask 4 10/18/24 11:00 100 Oxymask 4 10/18/24 08:50 98 Room Air 10/18/24 07:45 Room Air 10/18/24 07:28 95 Room Air 10/18/24 07:15 10/18/24 03:00 94 Room Air 10/17/24 23:00 96 Room Air 10/17/24 22:20 10/17/24 20:00 Room Air 10/17/24 19:32 96 Room Air 10/17/24 17:58 98 Room Air 10/17/24 16:29 91 Room Air 10/17/24 13:54 10/17/24 12:19 97 Room Air Recovery Score Activity: Moves 4 extremities Respiration: Deep Breath/Cough Circulation: +/-20% PreAnes Value Consciousness: Fully Awake Oxygen Saturation: O2 needed for >90% Post Anesthesia Score: 9 Discharge Sedation Level of Care: Fast Track Phase II Post Sedation Plan On clinical assessment, the patient appears to have tolerated the sedation without complications. Patient is recovering as anticipated. Patient will continue to be monitored by nursing and may be discharged when sedation discharge criteria are met per below protocol. Upon Completions of procedure up to 15 minutes continue every 5 minute vital signs and the P.A.R. score; then discharge to a Phase I or Fast Track to Phase II per the following guidelines: * Discharge Patient to appropriate Phase II area if PAR is 8 or greater or return to pre- procedure baseline. The post - procedure orders will be as directed. * If PAR score is less than 8 or not return to pre-procedure baseline then patient will follow Phase I monitoring till PAR is reached for Phase II. The Phase I may be done in procedure room or may call to secure a Phase I area. * If naloxone or flumazenil are used for reversal, hold in Phase I for continued monitoring from when last reversal dose was given for a minimum of 60 minutes or longer pending the nurse and/or physician discretion of patient condition before discharge to Phase II. Please call the Sedation Physician to re-evaluate and complete post-note for discharge to Phase II area. Do NOT discharge from procedure sedation or Phase 1 until post- sedation evaluation note is complete by procedure /sedation MD Sedation Discharge Instructions to be given to the patient at discharge to home.
--- NOTE | 2024-10-18 11:22 | Operative Report ---
Post Operative Report Pre & Post Diagnosis Operation Date: 10/18/24 14:45 Pre-Op Diagnosis: TRAN Post-Op Diagnosis: TRAN I identified the patient and participated in the time-out.: Yes Procedure Operation Date: 10/18/24 14:45 Actual Procedures p Perm Catheter Insertion, rIGHT INTERNAL JUGULAR APPROACH, ULTRASOUND LOCALIZATION OF RIGHT INTERNAL JUGULAR VEIN, FLUOROSCOPY FOR POISITIONING, MODERATE SEDATION [id number](Right) - Jackson Levy MD Surgeon Jackson Levy MD Vice President Sales And Marketing none Estimated Blood Loss 10 Findings Consistent with Post-Op Diagnosis Specimens none Anesthesia Type RN Sedation Complications none Disposition Accompanied Patient To Recovery: No Disposition: Recovery Room Indications This is a 63-year-old gentleman with acute kidney injury in need of dialysis. PermCath was recommended. I have discussed the risks options and benefits of the procedure with the patient. The patient understands the risks options and benefits and agrees to the procedure. Description of Procedure Patient was taken to the angio suite and placed in the supine position. The right side of the neck and chest wall were prepped and draped in a sterile manner. The patient was identified and a timeout performed. Local anesthesia was then administered to the appropriate areas of the neck and chest wall. Ultrasound was then used to locate the right internal jugular vein. The vein compressed easily, had no filing defects, and was patent. The vein was then punctured under direct ultrasound imaging. A guidewire was then passed centrally under fluoroscopic imaging. A stab wound was then made in the anterior chest wall and a 19 cm permcath was passed from the stab wound on the chest wall to the puncture site on the neck. The puncture site was then dilated till the 14Fr peel away sheath was inserted. The permcath was then inserted through the sheath to a central position in the distal superior vena cava. The peel away sheath was then removed. The catheter was then sutured in place using nylon sutures. The puncture was then closed using a 4-0 Vicryl subcuticular suture. Dermabond was used for a dressing on the puncture site. Both ports aspirated and flushed easily and were then packed with heparin. A sterile dressing was applied to the catheter. The patient left the operation room in satisfactory condition and tolerated the procedure well. All needle and sponge counts were correct at the end of the procedure. I attest to the content of the Intraoperative Record and any orders documented therein. Any exceptions are noted below.
[2024-10-18] MEDS: EPOETIN ALFA 10,000 UNITS/ML VIAL IV ONE (12:44)
[2024-10-18] MEDS: HEPARIN SOD (PORCINE) 5,000 UNITS/ML VIAL ONE (15:12)
[2024-10-18] MEDS: CARBOHYDRATES FOR HYPOGLYCEMIA PO PRN (15:15)
[2024-10-18 15:59] LABS: INR 1.2 (0.9-1.1); Prothrombin Time 12.5 Seconds (9.0-12.0)
[2024-10-18 16:09] LABS: Alanine Aminotransferase 14 U/L (7-52); Albumin Globulin Ratio 0.6 (0.9-2); Albumin Level 2.5 gm/dl (3.4-5.0); Alkaline Phosphatase 208 U/L (34-104); BUN Creatinine Ratio 11.6 (10-20); Bilirubin,Total 0.5 mg/dl (0.2-1.0); Blood Urea Nitrogen 48 mg/dl (6-23); Calcium 6.7 mg/dl (8.6-10.3); Carbon Dioxide 22 mmol/L (21-32); Chloride 113 mmol/L (98-107); Creatinine Clr Calc Pharmacy 18.9 ml/min; Globulin 3.9 gm/dl (2.5-4.0); Glucose 63 mg/dl (70-99(Fasting)); Total Protein 6.4 gm/dl (6.0-8.3)
--- NOTE | 2024-10-18 17:35 | Billing Data ---
Date of Service October 18, 2024 Coding Level of Care Code 35539 SUB INP/OBS CARE MIN
[2024-10-18] MEDS: LANTUS PER UNIT CHARGE SC SCH (20:48)
--- NOTE | 2024-10-18 22:17 | Electrocardiogram Report ---
Test Reason : Blood Pressure : */* mmHG Vent. Rate : 89 BPM Atrial Rate : 89 BPM P-R Int : 134 ms QRS Dur : 70 ms QT Int : 358 ms P-R-T Axes : 51 -20 20 degrees QTcB Int : 435 ms Normal sinus rhythm Septal infarct , age undetermined Inferior infarct (cited on or before 07-Apr-2018) Abnormal ECG When compared with ECG of 26-Mar-2022 14:41, Septal infarct is now Present Confirmed by Linus You ([id number]) on 10/18/2024 10:17:25 PM Referred By: REFERRED SELF Confirmed By: Linus You
--- NOTE | 2024-10-18 22:18 | Electrocardiogram Report ---
Test Reason : Blood Pressure : */* mmHG Vent. Rate : 84 BPM Atrial Rate : 84 BPM P-R Int : 116 ms QRS Dur : 80 ms QT Int : 370 ms P-R-T Axes : 38 -21 93 degrees QTcB Int : 437 ms Normal sinus rhythm Low voltage QRS Inferior infarct (cited on or before 07-Apr-2018) Cannot rule out Anterior infarct (cited on or before 15-Oct-2024) Nonspecific T wave abnormality Abnormal ECG When compared with ECG of 15-Oct-2024 16:37, Septal infarct is no longer Present Nonspecific T wave abnormality now evident in Lateral leads Confirmed by Linus You ([id number]) on 10/18/2024 10:18:03 PM Referred By: REFERRED SELF Confirmed By: Linus You
[2024-10-19 06:28] LABS: Anion Gap 6 (3-11); Blood Urea Nitrogen 57 mg/dl (6-23); Calcium 6.6 mg/dl (8.6-10.3); Carbon Dioxide 21 mmol/L (21-32); Chloride 112 mmol/L (98-107); Creatinine Clr Calc Pharmacy 14.3 ml/min; Glucose Fasting 129 mg/dl (70-99); Magnesium 1.6 mg/dl (1.7-2.4); Phosphorus 5.2 mg/dl (2.5-4.9); Sodium 139 mmol/L (136-145)
--- NOTE | 2024-10-19 07:06 | Hospitalist Progress Note ---
Date of Service October 19, 2024 Assessment & Plan (1) Acute on chronic kidney failure: Plan: Plan Assessment & Plan 63 y/o with a PMHx of nephrotic syndrome, CKD IIIb/IV, GERD, HTN, severe COPD, alcoholic cirrhosis, IDDM, asthma, HLD who presented with LUQ, nausea, fullness, and bloating. Workup revealing of ascites, large pleural effusion, and acute on chronic renal failure. Admitted for management of fluid and electrolyte status 1) Ascites/ pleural effusion/ anasarca all due to Cirrhosis Patient denied continued drinking. States that he drank a lot when he was younger. MELD labs ordered daily, MELD score, 19 (w/ pre-dialysis data from 10/18) CTP score of 9 (w/ pre-dialysis data from 10/18) CT shows signs of varices, patient on 6.25 mg, PO, BID 2) Hepatitis C infection - likely etiology, at least in part, of pt's cirrhosis (positive in Jun 2020) - doesn't appear that patient had previous Hep C treatment - patient can be setup w/ Hep C antivirals (Harvoni (sofosbuvir-ledipasvir) as outpt after d/c . 3) Acute on chronic renal failure/ Hyperkalemia (see below)/ Ascites/ Pleural effusion ARF on CKD IV. Large pleural effusion and marked ascites. - Nephrology consult - rec 100 mg IV Lasix Q8H, continue Bicarb gtt - 150 mEq and D5, plan for access for [employer], and IR drainage of abd/pleural space. - GI consult for cirrhosis management. - IR for probable paracentesis and thoracentesis. Transudative fluid at present (TProt (fluid) < 3, TProt (serum, 6.4) - If patient develops increased pain, fevers, change in mental status, or hemodynamic instability would consider addition of CTX and diagnostic paracentesis. Will need vascular access for HD - vascular surgery consulted. ASA held but consider re-starting s/p central catheter placement Patient now s/p paracentesis and s/p thoracentesis Cr, 5.14 <-- 6.11 (s/p dialysis) 4) Anemia due to chronic kidney disease/ Anemia of chronic disease/ Thrombocytopenia Hgb, 7.9 <-- 9.2 Plt, 64 <-- 100 - Likely secondary to CKD. Nephrology consulted. - Studies notable for iron deficiency, elevated PTH, elevated phosphorus, low calcium, consistent w/ secondary hyperparathyroidism. - May benefit from Venofer vs EPO - would defer to nephrology --> they started EPO 5) Hyperkalemia K, 4.4 (before dialysis) --> management - bicarb gtt, lasix, insulin HS, Lokelma insulin changed to 10 units, qHS Plan Code status: Full DVT ppx: SCDs, chemo ppx contraindicated as patient will likely have interventions tomorrow, hold ASA Fluids: IVF @ 80 mL/hr HCO3 150 mEq + D5, d/c Diet: renal dialysis and heart healthy diet Dispo: PCU/tele, PT/OT for dispo planning, needs outpatient f/u for chronic conditions Admission and Anticipated Discharge Date Admission Date: October 15, 2024 Supervising Physician Co-Signing Physician Notes I personally examined the patient and verified all marinelli points of history and exam, discussed case, and agree with decision making with Dr Rivas asleep and comfortably no issues noted. d/w nephro. input greatly appreciated. Vitals noted, in general he is awake and alert pleasant no distress. HEENT normocephalic atraumatic mucous membranes moist. Breathing unlabored no accessory muscle use good effort. Skin without rashes pallor or icterus. Neuro without focal deficits. Cirrhosis, ascites, hydrothorax, end-stage renal diseaseongoing med management, fluid drainage, supportive care. HD starting today. SCDs for DVT proph for now. otherwise as above Subjective Patient had paracentesis and thoracentesis performed yesterday and had his PermaCatheter Insertion done today. Patient's predominant Sx upon admission was the increased abdominal pressure and distended abddomen hed felt for 1 1/2 weeks. Today patient complaining about scrotal swelling that he states is new onset since admission. Continues to have swollen feet with difficulty ambulating, but feels like his breathing is much easier today. Thinks he may have been more dyspneic than he realized. Review of Systems Review of Systems: Constitutional: + fatigue and + daytime sleepiness Respiratory: no cough, no chest congestion and no dyspnea on exertion Cardiovascular: + edema; no chest pain, no palpitations and no calf pain Gastrointestinal: no abdominal pain, no bloating and no change in bowel habits Genitourinary: + scrotal swelling; no dysuria or no uri nary frequency Physical Exam Constitutional: WD/WN, vitals as above Respiratory: normal respiratory effort and able to speak in complete sentences Cardiovascular: Rate/Rhythm: regular rate and regular rhythm Heart Sounds: no gallop and no murmur Extremities: + pedal edema and + edema; no calf tenderness Gastrointestinal (Abdomen): Inspection/Auscultation: + abdomen distended and normal bowel sounds Percussion/Palpation: + abdomen rigid and + tympanic to percussion Psychiatric: A+Ox3, euthymic affect Genitourinary: + scrotum abnormality, + circumcised, + edematous scrotum, + erythematous scrotum (red scrotum but not dark red, also not indurated) and + scrotal swelling Results & Data Results & Data Vital Signs (Past 12 Hours) Vital Signs Temp Pulse Pulse Resp BP Pulse Ox O2 Del Method 10/19/24 07:00 91 H 10/19/24 03:08 36.9 C 90 19 106/63 93 Room Air 10/18/24 23:04 36.9 C 86 16 97/58 L 92 Room Air 10/18/24 22:24 87 10/18/24 20:45 Room Air 10/18/24 19:17 36.8 C 78 18 105/63 98 Room Air
[2024-10-19 07:19] LABS: Hemoglobin 7.9 g/dl (14.0-18.0); Mean Corpuscular Hemoglobin 30.3 pg (25.0-34.0); Mean Corpuscular Hgb Conc 32.9 g/dL (32.0-36.0); Mean Platelet Volume 9.5 fL (9.4-12.4); Nucleated RBC # (auto) 0.02 K/uL (0.00-0.12); Nucleated RBC % (auto) 0.3 %; Platelet Count 64 K/uL (130-400); RDW Coefficient of Variation 19.1 % (11.5-14.5); RDW Standard Deviation 63.2 fL (36.4-46.3); Red Blood Count 2.61 M/uL (4.70-6.10); White Blood Count 7.56 K/ul (4.8-10.8)
[2024-10-19 07:34] LABS: Basophils # (auto) 0.03 K/uL (0.00-0.20); Basophils % (auto) 0.4 %; Eosinophils # (auto) 0.58 K/uL (0.00-0.50); Eosinophils % (auto) 7.7 %; Immature Granulocytes # (auto) 0.14 K/uL (0.01-0.20); Immature Granulocytes % (auto) 1.9 %; Lymphocytes # (auto) 1.17 K/uL (1.20-3.40); Lymphocytes % (auto) 15.5 %; Monocytes # (auto) 0.85 K/uL (0.11-0.59); Monocytes % (auto) 11.2 %; Neutrophils # (auto) 4.79 K/uL (1.40-6.50); Neutrophils % (auto) 63.3 %; RBC Morphology Unremarkable
[2024-10-19 08:10] LABS: Albumin Globulin Ratio 0.6 (0.9-2); Albumin Level 2.2 gm/dl (3.4-5.0); BUN Creatinine Ratio 11.3 (10-20); Bilirubin,Total 0.4 mg/dl (0.2-1.0); Calcium 6.5 mg/dl (8.6-10.3); Creatinine Clr Calc Pharmacy 14.7 ml/min; Globulin 3.7 gm/dl (2.5-4.0); Potassium 4.7 mmol/L (3.5-5.1); Total Protein 5.9 gm/dl (6.0-8.3)
--- NOTE | 2024-10-19 10:28 | Nephrology Progress Note ---
Date of Service October 19, 2024 Assessment & Plan (1) End stage chronic kidney disease: Plan: * ESKD due to DKD, HRS * Outpatient evaluation in 2022 revealed a nonnephritic urine sediment. Renal imaging was negative for hydronephrosis. Testing for monoclonal gammopathy, PLA2R Ab were both negative. * Baseline creatinine had been 1.7. Patient was noted to have a precipitous decline in renal function 07/30. Creatinine had risen to 2.9. Patient was subsequently lost to outpatient nephrology follow-up * 10/15/[address] - simple bilateral renal cysts. No stones or hydronephrosis * 1st HD provided 10/18/24. Will plan 2nd treatment today. Orders have been placed in EMR and HD RN notified * Case management has been consulted to set up outpatient HD at [facility] w/ Dr. Sandhu * Prognosis is poor. Patient has cirrhosis w/ asites and hepatic hydrothorax. He has poor functional capacity. ESKD is due to DKD and HRS. If patient does not tolerate UF on HD due to hypotension, consider consultation w/ palliatives care. (2) Hyperkalemia: Plan: * Corrected * Continue to monitor BMP (3) Anasarca: Plan: * Will d/c furosemide and provide UF w/ HD (4) Cirrhosis: Plan: * History of hepatitis C+ and heavy alcohol use * Documented history of hepatic steatosis * Will need outpatient follow up w/ [facility] gastroenterology/hepatology for management of hep C cirrhosis * Patient underwent 2 L paracentesis by [facility] 10/17/24 (5) Pleural effusion: Plan: * Large right pleural effusion with collapse of the middle and lower lobes of the right lung * Patient is s/p 1.5 L R thoracentesis by [facility] 10/17/24 * Once effusion is resolved patient may require evaluation for possible mucous plugging or endobronchial lesion. He does have a longstanding history of tobacco use, COPD * Pulmonology is following (6) Hepatitis C: (7) Diabetes mellitus type 2, uncontrolled, with complications: (8) Diabetic retinopathy, nonproliferative, severe: (9) COPD (chronic obstructive pulmonary disease): Admission and Anticipated Discharge Date Admission Date: October 15, 2024 Subjective Mr. Jones was evaluated in his hospital room this morning. He was breathing comfortably on RA and reports that his abdominal discomfort is mildly improved Review of Systems Constitutional: no fever Eyes: no problem reported Ear, Nose, Mouth, Throat: no problem reported Respiratory: no cough and no dyspnea Cardiovascular: no chest pain Gastrointestinal: + abdominal pain (Left upper quadrant) Physical Exam Constitutional: not in distress (Breathing comfortably on RA) Eyes: PERRL, conjunctivae normal, anicteric sclerae ENMT: external ear and nose normal, oropharynx normal Neck: trachea midline, no thyromegaly Respiratory: normal respiratory effort (Diminished breath sounds right side); no respiratory distress Cardiovascular: Rate/Rhythm: regular rate and regular rhythm Heart Sounds: no murmur and no cardiac rub Extremities: + edema (2+ edema of the arms and legs) Gastrointestinal (Abdomen): Inspection/Auscultation: + abdomen distended and + hypoactive bowel sounds Percussion/Palpation: abdomen nontender and no guarding Musculoskeletal: Extremities: no cyanosis Neurologic: awake; not confused Results & Data Vital Signs (Past 12 Hours) Vital Signs Temp Pulse Pulse Pulse Resp BP Pulse Ox 10/19/24 08:11 36.8 C 94 H 18 136/75 93 10/19/24 07:11 10/19/24 07:00 91 H 10/19/24 03:08 36.9 C 90 19 106/63 93 10/18/24 23:04 36.9 C 86 16 97/58 L 92 O2 Del Method 10/19/24 08:11 Room Air 10/19/24 07:11 Room Air 10/19/24 07:00 10/19/24 03:08 Room Air 10/18/24 23:04 Room Air Laboratory Results Laboratory Results - last 24 hr 10/16/24 10/18/24 10/18/24 08:56 15:07 15:11 WBC RBC Hgb Hct MCV MCH MCHC RDW Std Deviation RDW Coeff of Ca Plt Count MPV Immature Gran % (Auto) Neut % (Auto) Lymph % (Auto) [place] % (Auto) Eos % (Auto) Baso % (Auto) Neut # (Auto) Lymph # (Auto) [place] # (Auto) Eos # (Auto) Baso # (Auto) Immature Gran # (Auto) Absolute Nucleated RBC Nucleated RBC % (auto) Neutrophils % (Manual) Band Neutrophils % Lymphocytes % (Manual) Prolymphocyte % Reactive Lymphs % (Man) Monocytes % (Manual) Eosinophils % (Manual) Basophils % (Manual) Metamyelocytes % (Man) Myelocytes % (Man) Promyelocytes % (Man) Blast Cells % (Manual) Plasma Cell % (Manual) Other Cells % Nucleated RBC % Neutrophils # (Manual) Band Neutrophils # Total Absolute Neuts Lymphocytes # (Manual) Prolymphocyte # Reactive Lymphs # Total Abs Lymphocytes Monocytes # (Manual) Eosinophils # (Manual) Basophils # (Manual) Metamyelocytes # (Man) Myelocytes # (Manual) Promyelocytes # (Man) Blast Cells # (Man) Plasma Cell # (Manual) Other Cells # Nucleated RBCs # (Man) Hypersegmented Neuts Hyposegmented Neuts Hypogranular Neuts Large Granular Lymphs # Lrg Granular Lymphs Hairy Cells Smudge Cells Toxic Granulation Toxic Vacuolation Dohle Bodies Hannah Rods Platelet Estimate Hypogranular Platelets Giant Platelets Platelet Satelliting RBC Morphology Polychromasia Hypochromasia Poikilocytosis Basophilic Stippling Anisocytosis Microcytosis Macrocytosis Spherocytes Pappenheimer Bodies Sickle Cells Target Cells Tear Drop Cells Ovalocytes Stomatocytes [place] Bodies Echinocytes Acanthocytes (Spur) Rouleaux RBC Agglutinates Schistocytes Sezary Cell PT INR Sodium Potassium Chloride Carbon Dioxide Anion Gap BUN Creatinine Est Cr Clr Drug Dosing eGFR BUN/Creatinine Ratio Glucose POC Glucose 51 L* 52 L* Fasting Glucose Calcium Phosphorus Magnesium Total Bilirubin AST ALT Alkaline Phosphatase Total Protein Albumin Globulin Albumin/Globulin Ratio Blood Parasites ID Crossmatch See Detail 10/18/24 10/18/24 10/18/24 15:34 15:36 16:08 WBC RBC Hgb Hct MCV MCH MCHC RDW Std Deviation RDW Coeff of Ca Plt Count MPV Immature Gran % (Auto) Neut % (Auto) Lymph % (Auto) [place] % (Auto) Eos % (Auto) Baso % (Auto) Neut # (Auto) Lymph # (Auto) [place] # (Auto) Eos # (Auto) Baso # (Auto) Immature Gran # (Auto) Absolute Nucleated RBC Nucleated RBC % (auto) Neutrophils % (Manual) Band Neutrophils % Lymphocytes % (Manual) Prolymphocyte % Reactive Lymphs % (Man) Monocytes % (Manual) Eosinophils % (Manual) Basophils % (Manual) Metamyelocytes % (Man) Myelocytes % (Man) Promyelocytes % (Man) Blast Cells % (Manual) Plasma Cell % (Manual) Other Cells % Nucleated RBC % Neutrophils # (Manual) Band Neutrophils # Total Absolute Neuts Lymphocytes # (Manual) Prolymphocyte # Reactive Lymphs # Total Abs Lymphocytes Monocytes # (Manual) Eosinophils # (Manual) Basophils # (Manual) Metamyelocytes # (Man) Myelocytes # (Manual) Promyelocytes # (Man) Blast Cells # (Man) Plasma Cell # (Manual) Other Cells # Nucleated RBCs # (Man) Hypersegmented Neuts Hyposegmented Neuts Hypogranular Neuts Large Granular Lymphs # Lrg Granular Lymphs Hairy Cells Smudge Cells Toxic Granulation Toxic Vacuolation Dohle Bodies Hannah Rods Platelet Estimate Hypogranular Platelets Giant Platelets Platelet Satelliting RBC Morphology Polychromasia Hypochromasia Poikilocytosis Basophilic Stippling Anisocytosis Microcytosis Macrocytosis Spherocytes Pappenheimer Bodies Sickle Cells Target Cells Tear Drop Cells Ovalocytes Stomatocytes [place] Bodies Echinocytes Acanthocytes (Spur) Rouleaux RBC Agglutinates Schistocytes Sezary Cell PT 12.5 H INR 1.2 H Sodium TNP Potassium TNP Chloride 113 H Carbon Dioxide 22 Anion Gap TNP BUN 48 H D Creatinine 4.13 H D Est Cr Clr Drug Dosing 18.9 eGFR 15.52 BUN/Creatinine Ratio 11.6 Glucose 63 L POC Glucose 66 L* 129 H Fasting Glucose Calcium 6.7 L Phosphorus Magnesium Total Bilirubin 0.5 AST TNP ALT 14 Alkaline Phosphatase 208 H Total Protein 6.4 Albumin 2.5 L Globulin 3.9 Albumin/Globulin Ratio 0.6 L Blood Parasites ID Crossmatch 10/18/24 10/18/24 10/19/24 20:02 23:13 05:23 WBC Cancelled RBC Cancelled Hgb Cancelled Hct Cancelled MCV Cancelled MCH Cancelled MCHC Cancelled RDW Std Deviation Cancelled RDW Coeff of Ca Cancelled Plt Count Cancelled MPV Cancelled Immature Gran % (Auto) Cancelled Neut % (Auto) Cancelled Lymph % (Auto) Cancelled [place] % (Auto) Cancelled Eos % (Auto) Cancelled Baso % (Auto) Cancelled Neut # (Auto) Cancelled Lymph # (Auto) Cancelled [place] # (Auto) Cancelled Eos # (Auto) Cancelled Baso # (Auto) Cancelled Immature Gran # (Auto) Cancelled Absolute Nucleated RBC Cancelled Nucleated RBC % (auto) Cancelled Neutrophils % (Manual) Cancelled Band Neutrophils % Cancelled Lymphocytes % (Manual) Cancelled Prolymphocyte % Cancelled Reactive Lymphs % (Man) Cancelled Monocytes % (Manual) Cancelled Eosinophils % (Manual) Cancelled Basophils % (Manual) Cancelled Metamyelocytes % (Man) Cancelled Myelocytes % (Man) Cancelled Promyelocytes % (Man) Cancelled Blast Cells % (Manual) Cancelled Plasma Cell % (Manual) Cancelled Other Cells % Cancelled Nucleated RBC % Cancelled Neutrophils # (Manual) Cancelled Band Neutrophils # Cancelled Total Absolute Neuts Cancelled Lymphocytes # (Manual) Cancelled Prolymphocyte # Cancelled Reactive Lymphs # Cancelled Total Abs Lymphocytes Cancelled Monocytes # (Manual) Cancelled Eosinophils # (Manual) Cancelled Basophils # (Manual) Cancelled Metamyelocytes # (Man) Cancelled Myelocytes # (Manual) Cancelled Promyelocytes # (Man) Cancelled Blast Cells # (Man) Cancelled Plasma Cell # (Manual) Cancelled Other Cells # Cancelled Nucleated RBCs # (Man) Cancelled Hypersegmented Neuts Cancelled Hyposegmented Neuts Cancelled Hypogranular Neuts Cancelled Large Granular Lymphs Cancelled # Lrg Granular Lymphs Cancelled Hairy Cells Cancelled Smudge Cells Cancelled Toxic Granulation Cancelled Toxic Vacuolation Cancelled Dohle Bodies Cancelled Hannah Rods Cancelled Platelet Estimate Cancelled Hypogranular Platelets Cancelled Giant Platelets Cancelled Platelet Satelliting Cancelled RBC Morphology Cancelled Polychromasia Cancelled Hypochromasia Cancelled Poikilocytosis Cancelled Basophilic Stippling Cancelled Anisocytosis Cancelled Microcytosis Cancelled Macrocytosis Cancelled Spherocytes Cancelled Pappenheimer Bodies Cancelled Sickle Cells Cancelled Target Cells Cancelled Tear Drop Cells Cancelled Ovalocytes Cancelled Stomatocytes Cancelled [place] Bodies Cancelled Echinocytes Cancelled Acanthocytes (Spur) Cancelled Rouleaux Cancelled RBC Agglutinates Cancelled Schistocytes Cancelled Sezary Cell Cancelled PT INR Sodium 139 Potassium TNP Chloride 112 H Carbon Dioxide 21 Anion Gap 6 BUN 57 H Creatinine 5.28 H* D Est Cr Clr Drug Dosing 14.3 eGFR 11.55 BUN/Creatinine Ratio Glucose POC Glucose 134 H 144 H Fasting Glucose 129 H Calcium 6.6 L Phosphorus 5.2 H Magnesium 1.6 L Total Bilirubin AST ALT Alkaline Phosphatase Total Protein Albumin Globulin Albumin/Globulin Ratio Blood Parasites ID Cancelled Crossmatch 10/19/24 10/19/24 10/19/24 06:33 06:33 07:25 WBC 7.56 RBC 2.61 L Hgb 7.9 L Hct 24.0 L MCV 92.0 MCH 30.3 MCHC 32.9 RDW Std Deviation 63.2 H RDW Coeff of Ca 19.1 H Plt Count 64 L MPV 9.5 Immature Gran % (Auto) 1.9 Neut % (Auto) 63.3 Lymph % (Auto) 15.5 [place] % (Auto) 11.2 Eos % (Auto) 7.7 Baso % (Auto) 0.4 Neut # (Auto) 4.79 Lymph # (Auto) 1.17 L [place] # (Auto) 0.85 H Eos # (Auto) 0.58 H Baso # (Auto) 0.03 Immature Gran # (Auto) 0.14 Absolute Nucleated RBC 0.02 Nucleated RBC % (auto) 0.3 Neutrophils % (Manual) Band Neutrophils % Lymphocytes % (Manual) Prolymphocyte % Reactive Lymphs % (Man) Monocytes % (Manual) Eosinophils % (Manual) Basophils % (Manual) Metamyelocytes % (Man) Myelocytes % (Man) Promyelocytes % (Man) Blast Cells % (Manual) Plasma Cell % (Manual) Other Cells % Nucleated RBC % Neutrophils # (Manual) Band Neutrophils # Total Absolute Neuts Lymphocytes # (Manual) Prolymphocyte # Reactive Lymphs # Total Abs Lymphocytes Monocytes # (Manual) Eosinophils # (Manual) Basophils # (Manual) Metamyelocytes # (Man) Myelocytes # (Manual) Promyelocytes # (Man) Blast Cells # (Man) Plasma Cell # (Manual) Other Cells # Nucleated RBCs # (Man) Hypersegmented Neuts Hyposegmented Neuts Hypogranular Neuts Large Granular Lymphs # Lrg Granular Lymphs Hairy Cells Smudge Cells Toxic Granulation Toxic Vacuolation Dohle Bodies Hannah Rods Platelet Estimate Hypogranular Platelets Giant Platelets Platelet Satelliting RBC Morphology Unremarkable Polychromasia Hypochromasia Poikilocytosis Basophilic Stippling Anisocytosis Microcytosis Macrocytosis Spherocytes Pappenheimer Bodies Sickle Cells Target Cells Tear Drop Cells Ovalocytes Stomatocytes [place] Bodies Echinocytes Acanthocytes (Spur) Rouleaux RBC Agglutinates Schistocytes Sezary Cell PT INR Sodium 141 Potassium 4.7 4.7 Chloride 112 H Carbon Dioxide 20 L Anion Gap 9 BUN 58 H Creatinine 5.14 H* Est Cr Clr Drug Dosing 14.7 eGFR 11.93 BUN/Creatinine Ratio 11.3 Glucose 147 H POC Glucose 200 H Fasting Glucose Calcium 6.5 L Phosphorus Magnesium Total Bilirubin 0.4 AST 27 ALT 10 Alkaline Phosphatase 209 H Total Protein 5.9 L Albumin 2.2 L Globulin 3.7 Albumin/Globulin Ratio 0.6 L Blood Parasites ID Crossmatch PG Care Time/CCT Total # of Minutes Spent Total Time Spent with Patient: Total time spent is greater than 50% in coordination of care (as documented) at patient's floor/unit and/or counseling patient: Coding Level of Care Code 23011 SUB INP/OBS CARE 3/50MIN Diagnoses End stage chronic kidney disease N18.6 Hyperkalemia E87.5 Anasarca R60.1 Cirrhosis K70.31 Ascites presence: with ascites Hepatic cirrhosis type: alcoholic cirrhosis Pleural effusion J90 Hepatitis C B19.20 Diabetes mellitus type 2, uncontrolled, with complications E11.8; E11.65 Diabetic retinopathy, nonproliferative, severe E11.3499 COPD (chronic obstructive pulmonary disease) J44.9 (4) Cirrhosis Ascites presence: with ascites Hepatic cirrhosis type: alcoholic cirrhosis Qualified Code(s): K70.31 - Alcoholic cirrhosis of liver with ascites
[2024-10-19] MEDS: EPOETIN ALFA 10,000 UNITS/ML VIAL IV ONE (13:04)
--- NOTE | 2024-10-19 17:52 | Billing Data ---
Date of Service October 19, 2024 Coding Level of Care Code 26066 SUB INP/OBS CARE MIN
[2024-10-19] MEDS: diphenhydrAMINE Capsule 25 MG CAP PO ONE (23:30)
[2024-10-20 06:53] LABS: Hematocrit (blood only) 20.6 % (42.0-52.0); Hemoglobin 6.7 g/dl (14.0-18.0); Mean Corpuscular Hemoglobin 29.8 pg (25.0-34.0); Mean Corpuscular Hgb Conc 32.5 g/dL (32.0-36.0); Mean Corpuscular Volume 91.6 fL (80.0-100.0); Mean Platelet Volume 10.4 fL (9.4-12.4); Nucleated RBC # (auto) 0.02 K/uL (0.00-0.12); Nucleated RBC % (auto) 0.3 %; Platelet Count 67 K/uL (130-400); RDW Standard Deviation 62.4 fL (36.4-46.3); Red Blood Count 2.25 M/uL (4.70-6.10); White Blood Count 6.87 K/ul (4.8-10.8)
[2024-10-20] MEDS ORDERED: SODIUM CHLORIDE 0.9% 50 ML IV PRN (06:59)
[2024-10-20] MEDS ORDERED: SODIUM CHLORIDE 0.9% 100 ML IV PRN (06:59)
[2024-10-20 07:17] LABS: Albumin Globulin Ratio 0.6 (0.9-2); Albumin Level 2.1 gm/dl (3.4-5.0); BUN Creatinine Ratio 9.9 (10-20); Bilirubin,Total 0.4 mg/dl (0.2-1.0); Calcium 6.5 mg/dl (8.6-10.3); Creatinine Clr Calc Pharmacy 19.3 ml/min; Globulin 3.3 gm/dl (2.5-4.0); Potassium 3.9 mmol/L (3.5-5.1); Total Protein 5.4 gm/dl (6.0-8.3)
--- NOTE | 2024-10-20 07:32 | Hospitalist Progress Note ---
Date of Service October 20, 2024 Assessment & Plan (1) Acute on chronic kidney failure: Plan: Plan Assessment & Plan 63 y/o with a PMHx of nephrotic syndrome, CKD IIIb/IV, GERD, HTN, severe COPD, alcoholic cirrhosis, IDDM, asthma, HLD who presented with LUQ, nausea, fullness, and bloating. Workup revealing of ascites, large pleural effusion, and acute on chronic renal failure. Admitted for management of fluid and electrolyte status 1) Ascites/ pleural effusion/ anasarca all due to Cirrhosis Patient denied continued drinking. States that he drank a lot when he was younger. MELD labs ordered daily, MELD score, 19 (w/ pre-dialysis data from 10/18) CTP score of 9 (w/ pre-dialysis data from 10/18) CT shows signs of varices, patient on carvedilol, 6.25 mg, PO, BID 2) Hepatitis C infection - likely etiology, at least in part, of pt's cirrhosis (positive in Jun 2020) - doesn't appear that patient had previous Hep C treatment - patient can be setup w/ Hep C antivirals (Harvoni (sofosbuvir-ledipasvir) as outpt after d/c . 3) Acute on chronic renal failure/ Hyperkalemia (see below)/ Ascites/ Pleural effusion ARF on CKD IV. Large pleural effusion and marked ascites. - Nephrology consult - rec 100 mg IV Lasix Q8H, continue Bicarb gtt - 150 mEq and D5, plan for access for [employer], and IR drainage of abd/pleural space. - GI consult for cirrhosis management. - IR for probable paracentesis and thoracentesis. Transudative fluid at present (TProt (fluid) < 3, TProt (serum, 6.4) - If patient develops increased pain, fevers, change in mental status, or hemodynamic instability would consider addition of CTX and diagnostic paracentesis. Will need vascular access for HD - vascular surgery consulted. ASA held but consider re-starting s/p central catheter placement Patient now s/p paracentesis and s/p thoracentesis Cr, 3.93 <-- 6.11 (s/p dialysis) 4) Anemia due to chronic kidney disease/ Anemia of chronic disease/ Thrombocytopenia Hgb, 9.2 <-- 6.7 <-- 9.2 1 unit of PRBC's ordered, CBC, 2 hrs post-transfusion ordered Plt, 89 <-- 67 <-- 100 - Likely secondary to CKD. Nephrology consulted. - Studies notable for iron deficiency, elevated PTH, elevated phosphorus, low calcium, consistent w/ secondary hyperparathyroidism. - May benefit from Venofer vs EPO - would defer to nephrology --> they have given 2 doses of EPO 5) Hyperkalemia/ Hypocalcemia K, 4.4 (before dialysis) --> management - bicarb gtt, lasix, insulin HS, Lokelma insulin changed to 10 units, qHS Ca, 6.5 <-- 7.8 6) Anxiety - pt w/ likely anxiety during dialysis treatment due to subjective feeling of dyspnea - pt experienced insomnia last night, which pt feels was anxiety-related Plan Code status: Full DVT ppx: SCDs, chemo ppx contraindicated as patient will likely have interventions tomorrow, hold ASA Fluids: IVF @ 80 mL/hr HCO3 150 mEq + D5, d/c Diet: renal dialysis and heart healthy diet Dispo: PCU/tele, PT/OT for dispo planning, needs outpatient f/u for chronic conditions Admission and Anticipated Discharge Date Admission Date: October 15, 2024 Supervising Physician Co-Signing Physician Notes I personally examined the patient and verified all marinelli points of history and exam, discussed case, and agree with decision making with Dr Rivas asleep and comfortably no issues noted. nephro input appreciated. Vitals noted, in general he is awake and alert pleasant no distress. HEENT normocephalic atraumatic mucous membranes moist. Breathing unlabored no accessory muscle use good effort. Skin without rashes pallor or icterus. Neuro without focal deficits. Cirrhosis, ascites, hydrothorax, end-stage renal diseaseongoing med management, fluid drainage, supportive care. ongoing HD. transfusion for anemia. continue SCDs for now otherwise as above Subjective Patient seen and evaluated this morning. Had not slept well the previous night, due to anxiety per the patient. He has been short of breath while receiving his dialysis treatments that was not entirely relieved by nasal cannula oxygen, suggesting some anxiety. Hemodynamically stable this morning per the last set of vitals and 6:50 am, normal pulse of 82 by my count, patient sitting in the room in no apparent distress. Review of Systems Review of Systems: Constitutional: + fatigue and + daytime sleepiness Respiratory: no cough, no chest congestion and no dyspnea on exertion Cardiovascular: + edema; no chest pain, no palpitations and no calf pain Gastrointestinal: no abdominal pain, no bloating and no change in bowel habits Genitourinary: + scrotal swelling; no dysuria or no uri nary frequency Psychiatric: + abnormal sleep pattern and + anxiety patient w/ poor sleep last night, likely secondary to anxiety Physical Exam Constitutional: WD/WN, vitals as above Respiratory: normal respiratory effort and able to speak in complete sentences Cardiovascular: Rate/Rhythm: regular rate and regular rhythm Heart Sounds: no gallop and no murmur Extremities: + pedal edema and + edema; no calf tenderness Gastrointestinal (Abdomen): Inspection/Auscultation: + abdomen distended and normal bowel sounds Percussion/Palpation: + abdomen rigid and + tympanic to percussion Psychiatric: A+Ox3, euthymic affect Affect: euthymic affect Mood: + anxious mood Genitourinary: + scrotum abnormality, + circumcised, + edematous scrotum, + erythematous scrotum (red scrotum but not dark red, also not indurated) and + scrotal swelling Results & Data Results & Data Vital Signs (Past 12 Hours) Vital Signs Temp Pulse Pulse Resp BP Pulse Ox O2 Del Method 10/20/24 06:50 85 10/20/24 04:00 36.5 C 87 20 124/71 96 Room Air 10/19/24 23:11 36.8 C 75 16 109/63 96 Room Air 10/19/24 21:52 83 10/19/24 20:00 Room Air 10/19/24 19:32 36.7 C 81 16 132/76 94 Room Air Resident Activity Tracking Resident Involvement: Resident Care Provided Care Provided: Adult Hospital Medicine
--- NOTE | 2024-10-20 08:39 | Nephrology Progress Note ---
Date of Service October 20, 2024 Assessment & Plan (1) End stage chronic kidney disease: Plan: * ESKD due to DKD, HRS * Outpatient evaluation in 2022 revealed a nonnephritic urine sediment. Renal imaging was negative for hydronephrosis. Testing for monoclonal gammopathy, PLA2R Ab were both negative. * Baseline creatinine had been 1.7. Patient was noted to have a precipitous decline in renal function 07/30. Creatinine had risen to 2.9. Patient was subsequently lost to outpatient nephrology follow-up * 10/15/[address] - simple bilateral renal cysts. No stones or hydronephrosis * 1st HD provided 10/18/24. 2nd 10/19/24 complicated by hypotension. No UF obtained. * Will dialyze today heparin free and attempt 3 L UF. * Case management has been consulted to [facility] HD [facility] w/ Dr. Sandhu * Prognosis is poor. Patient has cirrhosis w/ asites and hepatic hydrothorax. He has poor functional capacity. ESKD is due to DKD and HRS. If patient does not tolerate UF on HD due to hypotension, consider consultation w/ palliatives care. (2) Anemia: Plan: * Will transfuse 2 units PRBC today (3) Anasarca: Plan: * Will d/c furosemide and provide UF w/ HD (4) Cirrhosis: Plan: * History of hepatitis C+ and heavy alcohol use * Documented history of hepatic steatosis * Will need outpatient follow up w/ [facility] gastroenterology/hepatology for management of hep C cirrhosis * Patient underwent 2 L paracentesis by VIR 10/17/24 (5) Pleural effusion: Plan: * Large right pleural effusion with collapse of the middle and lower lobes of the right lung * Patient is s/p 1.5 L R thoracentesis by VIR 10/17/24 * Once effusion is resolved patient may require evaluation for possible mucous plugging or endobronchial lesion. He does have a longstanding history of tobacco use, COPD * Pulmonology is following (6) Hepatitis C: (7) Diabetes mellitus type 2, uncontrolled, with complications: (8) Diabetic retinopathy, nonproliferative, severe: (9) COPD (chronic obstructive pulmonary disease): Admission and Anticipated Discharge Date Admission Date: October 15, 2024 Subjective Mr. Jones was evaluated in his hospital room this morning. He was breathing comfortably on RA and reports that his abdominal discomfort is mildly improved. Dialysis yesterday was complicated by hypotension. No UF was obtained. Review of Systems Constitutional: no fever Eyes: no problem reported Ear, Nose, Mouth, Throat: no problem reported Respiratory: no cough and no dyspnea Cardiovascular: no chest pain Gastrointestinal: + abdominal pain (Left upper quadrant) Physical Exam Constitutional: not in distress (Breathing comfortably on RA) Eyes: PERRL, conjunctivae normal, anicteric sclerae ENMT: external ear and nose normal, oropharynx normal Neck: trachea midline, no thyromegaly Respiratory: normal respiratory effort (Diminished breath sounds right side); no respiratory distress Cardiovascular: Rate/Rhythm: regular rate and regular rhythm Heart Sounds: no murmur and no cardiac rub Extremities: + edema (2+ edema of the arms and legs) Gastrointestinal (Abdomen): Inspection/Auscultation: + abdomen distended and + hypoactive bowel sounds Percussion/Palpation: abdomen nontender and no guarding Musculoskeletal: Extremities: no cyanosis Neurologic: awake; not confused Results & Data Vital Signs (Past 12 Hours) Vital Signs Temp Pulse Pulse Resp BP Pulse Ox O2 Del Method 10/20/24 08:14 36.8 C 87 20 125/74 97 Room Air 10/20/24 06:50 85 10/20/24 04:00 36.5 C 87 20 124/71 96 Room Air 10/19/24 23:11 36.8 C 75 16 109/63 96 Room Air 10/19/24 21:52 83 Laboratory Results Laboratory Results - last 24 hr 10/17/24 10/19/24 10/19/24 16:40 14:10 16:37 WBC RBC Hgb Hct MCV MCH MCHC RDW Std Deviation RDW Coeff of Ca Plt Count MPV Absolute Nucleated RBC Nucleated RBC % (auto) Sodium Potassium Chloride Carbon Dioxide Anion Gap BUN Creatinine Est Cr Clr Drug Dosing eGFR BUN/Creatinine Ratio Glucose POC Glucose 112 H 167 H Calcium Total Bilirubin AST ALT Alkaline Phosphatase Total Protein Albumin Globulin Albumin/Globulin Ratio Hep B Core IgM Ab NON-REACTIVE Blood Type Antibody Screen Crossmatch 10/19/24 10/20/24 10/20/24 20:44 05:24 08:08 WBC 6.87 RBC 2.25 L Hgb 6.7 L* Hct 20.6 L* MCV 91.6 MCH 29.8 MCHC 32.5 RDW Std Deviation 62.4 H RDW Coeff of Ca 19.0 H Plt Count 67 L MPV 10.4 Absolute Nucleated RBC 0.02 Nucleated RBC % (auto) 0.3 Sodium 139 Potassium 3.9 Chloride 111 H Carbon Dioxide 24 Anion Gap 4 BUN 39 H Creatinine 3.93 H D Est Cr Clr Drug Dosing 19.3 eGFR 16.47 BUN/Creatinine Ratio 9.9 L Glucose 175 H POC Glucose 231 H 168 H Calcium 6.5 L Total Bilirubin 0.4 AST 20 ALT 6 L Alkaline Phosphatase 179 H Total Protein 5.4 L Albumin 2.1 L Globulin 3.3 Albumin/Globulin Ratio 0.6 L Hep B Core IgM Ab Blood Type Pending Antibody Screen Pending Crossmatch See Detail PG Care Time/CCT Total # of Minutes Spent Total Time Spent with Patient: Total time spent is greater than 50% in coordination of care (as documented) at patient's floor/unit and/or counseling patient: Coding Level of Care Code 01279 SUB INP/OBS CARE 3/50MIN Diagnoses End stage chronic kidney disease N18.6 Anemia D64.9 Anemia type: unspecified type Anasarca R60.1 Cirrhosis K70.31 Ascites presence: with ascites Hepatic cirrhosis type: alcoholic cirrhosis Pleural effusion J90 Hepatitis C B19.20 Diabetes mellitus type 2, uncontrolled, with complications E11.8; E11.65 Diabetic retinopathy, nonproliferative, severe E11.3499 COPD (chronic obstructive pulmonary disease) J44.9 (2) Anemia Anemia type: unspecified type Qualified Code(s): D64.9 - Anemia, unspecified (4) Cirrhosis Ascites presence: with ascites Hepatic cirrhosis type: alcoholic cirrhosis Qualified Code(s): K70.31 - Alcoholic cirrhosis of liver with ascites
[2024-10-20] MEDS: hydrOXYzine HCl 25 MG TAB PO PRN (08:46)
[2024-10-20] MEDS: EPOETIN ALFA 10,000 UNITS/ML VIAL IV ONE (12:23)
[2024-10-20 15:16] LABS: Hematocrit (blood only) 27.2 % (42.0-52.0); Hemoglobin 9.2 g/dl (14.0-18.0); Mean Corpuscular Hemoglobin 30.6 pg (25.0-34.0); Mean Corpuscular Hgb Conc 33.8 g/dL (32.0-36.0); Mean Corpuscular Volume 90.4 fL (80.0-100.0); Mean Platelet Volume 10.3 fL (9.4-12.4); Nucleated RBC # (auto) 0.04 K/uL (0.00-0.12); Nucleated RBC % (auto) 0.4 %; Platelet Count 89 K/uL (130-400); RDW Coefficient of Variation 18.5 % (11.5-14.5); Red Blood Count 3.01 M/uL (4.70-6.10); White Blood Count 11.01 K/ul (4.8-10.8)
--- NOTE | 2024-10-20 17:03 | Billing Data ---
Date of Service October 20, 2024 Coding Level of Care Code 76863 SUB INP/OBS CARE
[2024-10-21 07:29] LABS: Hematocrit (blood only) 25.2 % (42.0-52.0); Hemoglobin 8.5 g/dl (14.0-18.0); Mean Corpuscular Hemoglobin 30.5 pg (25.0-34.0); Mean Corpuscular Hgb Conc 33.7 g/dL (32.0-36.0); Mean Corpuscular Volume 90.3 fL (80.0-100.0); Mean Platelet Volume 10.1 fL (9.4-12.4); Nucleated RBC # (auto) 0.02 K/uL (0.00-0.12); Nucleated RBC % (auto) 0.2 %; Platelet Count 80 K/uL (130-400); RDW Coefficient of Variation 18.6 % (11.5-14.5); RDW Standard Deviation 59.7 fL (36.4-46.3); Red Blood Count 2.79 M/uL (4.70-6.10); White Blood Count 8.89 K/ul (4.8-10.8)
[2024-10-21 07:43] LABS: BUN Creatinine Ratio 8.7 (10-20); Calcium 6.8 mg/dl (8.6-10.3); Creatinine Clr Calc Pharmacy 21.3 ml/min
--- NOTE | 2024-10-21 07:50 | Hospitalist Progress Note ---
Date of Service October 21, 2024 Assessment & Plan (1) Acute on chronic kidney failure: Plan: Plan 63 y/o with a PMHx of nephrotic syndrome, CKD IIIb/IV, GERD, HTN, severe COPD, alcoholic cirrhosis, IDDM, asthma, HLD who presented with LUQ, nausea, fullness, and bloating. Workup revealing of ascites, large pleural effusion, and acute on chronic renal failure. Admitted for management of fluid and electrolyte status #Cirrhosis 2/2 untreated Hep C and significant alcohol use #Significant fluid overload - ascites, pleural effusion, BLE swelling, anasarca Cirrhosis likely multifactorial with significant alcohol use history and untreated Hepatitis C. Tested positive in 2019. Would treat outpatient likely with Harvoni. CT with signs of varices, no prior bleed. Will need outpatient scope to assess variceal bleed risk. Continue beta blockage with carvedilol for now. Consider spironolactone. daily MELD labs, max 19 GI consult - appreciate recs continue carvedilol outpatient Hep C treatment #Acute on CKD3b/4 #Electrolyte derangements ARF on CKD IV. Large pleural effusion and marked ascites s/p thoracentesis 1.5 L and paracentesis 2 L. Initially treated with Bicarb gtt and aggressive diuresis - furosemide 100 mg IV TID. Patient undergoing HD now that he has access as mainstay of fluid status management. Initially held ASA - resume 10/22. If patient develops increased pain, fevers, change in mental status, or hemodynamic instability would consider addition of CTX and diagnostic paracentesis. nephro consult - added furosemide 80 mg IV TID 10/21 creatinine improving with HD HD per nephro - session 10/21 continue Lokelma #Anemia 2/2 CKD Multifactorial - decreased EPO production by the kidney, iron deficiency, ?hyperparathyroidism. Did get 1 uPRBCs 10/20 with appropriate hemoglobin response. EPO vs venofer per nephro AM CBC transfuse < 7 #Anxiety Anxiety surrounding HD. Improved with hydroxyzine. Continue 25 mg TID as needed Code status: Full DVT ppx: SCDs, chemo ppx contraindicated with low hemoglobin and platelets, did resume ASA 2 Fluids: tolerating PO Diet: renal dialysis and heart healthy diet Dispo: PCU/tele, PT/OT for dispo planning, needs outpatient f/u for chronic conditions Admission and Anticipated Discharge Date Admission Date: October 15, 2024 Supervising Physician Co-Signing Physician Notes I personally examined the patient and verified all marinelli points of history and exam, discussed case, and agree with decision making with Dr Bird seen during dialysis. Tolerating well1 L off and doing better than previously. Patient feels well, and overall feels like he is less tight and swollen than before. Vitals noted, in general he is awake and alert pleasant no distress. HEENT normocephalic atraumatic mucous membranes moist. Breathing unlabored no accessory muscle use good effort. Skin without rashes pallor or icterus. Neuro without focal deficits. Cirrhosis, ascites, hydrothorax, end-stage renal diseaseongoing med management, fluid drainage, supportive care. ongoing HD. transfusion for anemia given and hemoglobin responded appropriately. continue SCDs for now. Discussed with patient that ESRD/cirrhosis with ascites is not a problem that is essentially "fixable" but as long as he is feeling okay, maintaining with the current plan can be very open-ended. Did discuss that hypothetically if hepatitis C was treated and he was then a transplant candidate, that could be an avenue. Overall tried to start to help him understand that these problems will be severe and chronic. otherwise as above Subjective Seen at bedside this AM. Doing well. Breathing comfortably. BLE swelling improved. No SOB or CP. No fevers or chills. Review of Systems 2 Review of Systems: See HPI Physical Exam 2 Physical Exam: Gen: chronically ill appearing patient in NAD HEENT: AT NC MMM Resp: CTAB no wheezing no increased work of breathing CV: RRR no m/r/g clinically well perfused Abd: soft, non-tender, non-distended MSK: no obvious deformities Skin: no rashes or bruising Neuro: alert and oriented Psych: appropriate mood and affect Results & Data Results & Data Vital Signs (Past 12 Hours) Vital Signs Temp Pulse Pulse Pulse Resp BP Pulse Ox 10/21/24 07:42 10/21/24 07:23 82 10/21/24 04:19 36.6 C 78 18 122/74 95 10/21/24 03:13 84 10/20/24 23:31 36.8 C 84 16 127/70 94 10/20/24 21:30 O2 Del Method 10/21/24 07:42 Room Air 10/21/24 07:23 10/21/24 04:19 Room Air 10/21/24 03:13 10/20/24 23:31 Room Air 10/20/24 21:30 Room Air Laboratory Results 10/21/24 06:45 10/21/24 06:45 Resident Activity Tracking Resident Involvement: Resident Care Provided Care Provided: Adult Hospital Medicine
--- NOTE | 2024-10-21 09:46 | Nephrology Progress Note ---
Date of Service October 21, 2024 Assessment & Plan (1) End stage chronic kidney disease: Plan: * ESKD due to DKD, HRS * Outpatient evaluation in 2022 revealed a non-nephritic urine sediment. Renal imaging was negative for hydronephrosis. Testing for monoclonal gammopathy, PLA2R Ab were both negative. * Baseline creatinine had been 1.7. Patient was noted to have a precipitous decline in renal function 07/30. Creatinine had risen to 2.9. Patient was subsequently lost to outpatient nephrology follow-up * 10/15/[address] - simple bilateral renal cysts. No stones or hydronephrosis * 1st HD provided 10/18/24. 2nd 10/19/24 complicated by hypotension. No UF obtained. HD 10/20/24 allowed for 3 L UF following 1 unit PRBC * Will dialyze today for 3 hours heparin free and attempt 3 L UF. * Case management has been consulted to set up outpatient HD at [facility] w/ Dr. Sandhu * Prognosis is poor. Patient has cirrhosis w/ ascites and hepatic hydrothorax. He has poor functional capacity. ESKD is due to DKD and HRS. If patient does not tolerate UF on HD due to hypotension, consider consultation w/ palliative care. (2) Anemia: Plan: * s/p 1 unit PRBC 10/20/24 (3) Anasarca: Plan: * Patient is non-oliguric. Will schedule furosemide 80 mg TID to promote diuresis in between HD treatments (4) Cirrhosis: Plan: * History of hepatitis C+ and heavy alcohol use * Documented history of hepatic steatosis * Will need outpatient follow up w/ [facility] gastroenterology/hepatology for management of hep C cirrhosis * Patient underwent 2 L paracentesis by VIR 10/17/24 (5) Pleural effusion: Plan: * Large right pleural effusion with collapse of the middle and lower lobes of the right lung * Patient is s/p 1.5 L R thoracentesis by VIR 10/17/24 * Once effusion is resolved patient may require evaluation for possible mucous plugging or endobronchial lesion. He does have a longstanding history of tobacco use, COPD * Will order CXR following HD today (6) Hepatitis C: (7) Diabetes mellitus type 2, uncontrolled, with complications: (8) Diabetic retinopathy, nonproliferative, severe: (9) COPD (chronic obstructive pulmonary disease): Admission and Anticipated Discharge Date Admission Date: October 15, 2024 Subjective Mr. Jones was evaluated in his hospital room this morning. He was breathing comfortably on RA and reports that his abdominal discomfort is mildly improved. 3 L UF obtained during dialysis yesterday. Patient received 1 unit PRBC during HD Review of Systems Constitutional: no fever Eyes: no problem reported Ear, Nose, Mouth, Throat: no problem reported Respiratory: no cough and no dyspnea Cardiovascular: no chest pain Gastrointestinal: + abdominal pain (Left upper quadrant) Physical Exam Constitutional: not in distress (Breathing comfortably on RA) Eyes: PERRL, conjunctivae normal, anicteric sclerae ENMT: external ear and nose normal, oropharynx normal Neck: trachea midline, no thyromegaly Respiratory: normal respiratory effort (Diminished breath sounds right side); no respiratory distress Cardiovascular: Rate/Rhythm: regular rate and regular rhythm Heart Sounds: no murmur and no cardiac rub Extremities: + edema (2+ edema of the arms and legs) Gastrointestinal (Abdomen): Inspection/Auscultation: + abdomen distended and + hypoactive bowel sounds Percussion/Palpation: abdomen nontender and no guarding Musculoskeletal: Extremities: no cyanosis Neurologic: awake; not confused Results & Data Vital Signs (Past 12 Hours) Vital Signs Temp Pulse Pulse Pulse Resp BP Pulse Ox 10/21/24 08:28 36.8 C 85 18 137/75 95 10/21/24 07:42 10/21/24 07:23 82 10/21/24 04:19 36.6 C 78 18 122/74 95 10/21/24 03:13 84 10/20/24 23:31 36.8 C 84 16 127/70 94 O2 Del Method 10/21/24 08:28 Room Air 10/21/24 07:42 Room Air 10/21/24 07:23 10/21/24 04:19 Room Air 10/21/24 03:13 10/20/24 23:31 Room Air PG Care Time/CCT Total # of Minutes Spent Total Time Spent with Patient: Total time spent is greater than 50% in coordination of care (as documented) at patient's floor/unit and/or counseling patient: Coding Level of Care Code 52706 SUB INP/OBS CARE 3/50MIN Diagnoses End stage chronic kidney disease N18.6 Anemia D64.9 Anemia type: unspecified type Anasarca R60.1 Cirrhosis K70.31 Ascites presence: with ascites Hepatic cirrhosis type: alcoholic cirrhosis Pleural effusion J90 Hepatitis C B19.20 Diabetes mellitus type 2, uncontrolled, with complications E11.8; E11.65 Diabetic retinopathy, nonproliferative, severe E11.3499 COPD (chronic obstructive pulmonary disease) J44.9 (2) Anemia Anemia type: unspecified type Qualified Code(s): D64.9 - Anemia, unspecified (4) Cirrhosis Ascites presence: with ascites Hepatic cirrhosis type: alcoholic cirrhosis Qualified Code(s): K70.31 - Alcoholic cirrhosis of liver with ascites
[2024-10-21 11:57] LABS: Magnesium 1.6 mg/dl (1.7-2.4); Phosphorus 3.3 mg/dl (2.5-4.9)
--- NOTE | 2024-10-21 14:41 | Billing Data ---
Date of Service October 21, 2024 Coding Level of Care Code 17021 SUB INP/OBS CARE
[2024-10-21] MEDS: FUROSEMIDE 40 MG/4 ML VIAL IV SCH (16:17)
--- NOTE | 2024-10-21 22:29 | XRay Report ---
Exam(s): XR CXR 1 VIEW EXAM: XR Chest, 1 View CLINICAL HISTORY: Reason for exam: R effusion. TECHNIQUE: Frontal view of the chest. COMPARISON: 10/17/24 FINDINGS/IMPRESSION: Large right pleural effusion, similar to prior. Possible trace left pleural effusion. No pneumothorax. No change in airspace disease within the right lung. Stable cardiac silhouette. Tunneled right-sided supraclavicular hemodialysis catheter, left chest wall dual-lead AICD-pacemaker, both stable from prior. Stable skeleton. Scattered metallic shrapnel projecting over the left upper chest. Electronically signed by: Camille De Leon M.D. 10/21/24 22:28 PM
[2024-10-22 06:30] LABS: Hematocrit (blood only) 25.4 % (42.0-52.0); Hemoglobin 8.6 g/dl (14.0-18.0); Mean Corpuscular Hemoglobin 30.7 pg (25.0-34.0); Mean Corpuscular Hgb Conc 33.9 g/dL (32.0-36.0); Mean Corpuscular Volume 90.7 fL (80.0-100.0); Mean Platelet Volume 9.7 fL (9.4-12.4); Platelet Count 75 K/uL (130-400); RDW Coefficient of Variation 18.6 % (11.5-14.5); RDW Standard Deviation 59.9 fL (36.4-46.3); White Blood Count 7.22 K/ul (4.8-10.8)
[2024-10-22 06:47] LABS: BUN Creatinine Ratio 8.8 (10-20); Calcium 6.9 mg/dl (8.6-10.3); Creatinine Clr Calc Pharmacy 18.1 ml/min; Magnesium 1.6 mg/dl (1.7-2.4); Phosphorus 3.1 mg/dl (2.5-4.9); Potassium 3.9 mmol/L (3.5-5.1)
--- NOTE | 2024-10-22 07:53 | Hospitalist Progress Note ---
Date of Service October 22, 2024 Assessment & Plan (1) Acute on chronic kidney failure: Plan: Plan 63 y/o with a PMHx of nephrotic syndrome, CKD IIIb/IV, GERD, HTN, severe COPD, alcoholic cirrhosis, IDDM, asthma, HLD who presented with LUQ, nausea, fullness, and bloating. Workup revealing of ascites, large pleural effusion, and acute on chronic renal failure. Admitted for management of fluid and electrolyte status #Cirrhosis 2/2 untreated Hep C and significant alcohol use #Significant fluid overload - ascites, pleural effusion, BLE swelling, anasarca Cirrhosis likely multifactorial with significant alcohol use history and untreated Hepatitis C. Tested positive in 2019. Would treat outpatient likely with Harvoni. CT with signs of varices, no prior bleed. Will need outpatient scope to assess variceal bleed risk. Continue beta blockage with carvedilol for now. Consider spironolactone. daily MELD labs, max 19 GI consult - appreciate recs continue carvedilol outpatient Hep C treatment #Acute on CKD3b/4 #Electrolyte derangements ARF on CKD IV. Large pleural effusion and marked ascites s/p thoracentesis 1.5 L and paracentesis 2 L. Initially treated with Bicarb gtt and aggressive diuresis - furosemide 100 mg IV TID. Patient undergoing HD now that he has access as mainstay of fluid status management. Initially held ASA - resume 10/22. If p atient develops increased pain, fevers, change in mental status, or hemodynamic instability would consider addition of CTX and diagnostic paracentesis. nephro consult - added furosemide 80 mg IV TID 10/21 creatinine improving with HD HD per nephro - last session 10/21-> next session tentatively planned for Tuesday 10/24 continue [place] #Anemia 2/2 CKD Multifactorial - decreased EPO production by the kidney, iron deficiency, ?hyperparathyroidism. Did get 1 uPRBCs 10/20 with appropriate hemoglobin response. EPO vs venofer per nephro AM CBC transfuse < 7 #Anxiety Anxiety surrounding HD. Improved with hydroxyzine. Continue 25 mg TID as needed Code status: Full DVT ppx: SCDs, chemo ppx contraindicated with low hemoglobin and platelets, did resume ASA 2/ Fluids: tolerating PO Diet: renal dialysis and heart healthy diet Dispo: PCU/tele, PT/OT for dispo planning, needs outpatient f/u for chronic conditions Admission and Anticipated Discharge Date Admission Date: October 15, 2024 Supervising Physician Co-Signing Physician Notes I personally examined the patient and verified all marinelli points of history and exam, discussed case, and agree with decision making with Dr White feeling ok, ate well. feels like he can get around OK. wants to go home. Vitals noted, in general he is awake and alert pleasant no distress. HEENT normocephalic atraumatic mucous membranes moist. Breathing unlabored no accessory muscle use good effort. Skin without rashes pallor or icterus. Neuro without focal deficits. Cirrhosis, ascites, hydrothorax, end-stage renal diseaseongoing med man agement, fluid drainage, supportive care. ongoing HD. starts as outpt thursday - with him wanting to go home - possibly consider dc tomorrow (d/w pt that now-> thursday is a long time given how tenuous his fluid status has been) had transfusion 2 units PRBC for anemia given and hemoglobin responded appropriately. continue SCDs for now. Previously have discussed with patient and that ESRD/cirrhosis with ascites is not a problem that is essentially "fixable" but as long as he is feeling okay, maintaining with the current plan can be very open-ended. Did discuss that hypothetically if hepatitis C was treated and he was then a transplant candidate, that could be an avenue. Overall tried to start to help him understand that these problems will be severe and chronic. otherwise as above Subjective Pt seen at bedside this morning. No events overnight. Stays sleep could have been better, but otherwise no complaints. Review of Systems Review of Systems: As per above Physical Exam Physical Exam: Constitutional: well-appearing, no acute distress HEENT: NCAT, no conjunctival injection CV: regular rhythm, no murmur appreciated, extremities well-perfused Resp: CTABL, no wheezes/rales/rhonchi appreciated, no increased work of breathing GI: soft, nontender MSK: no gross deformities appreciated Skin: warm, dry, no rash appreciated Neuro: alert, oriented, no focal neurologic deficit appreciated Results & Data Results & Data Vital Signs (Past 12 Hours) Vital Signs Temp Pulse Pulse Resp BP Pulse Ox O2 Del Method 10/22/24 07:02 36.6 C 88 18 145/79 H 96 Room Air 10/22/24 04:19 37.2 C 94 H 16 138/86 96 Room Air 10/22/24 01:26 89 10/22/24 00:07 36.9 C 89 16 124/75 93 Room Air 10/21/24 20:45 36.9 C 73 16 113/67 97 Room Air Resident Activity Tracking Resident Involvement: Resident Care Provided Care Provided: Adult Hospital Medicine
--- NOTE | 2024-10-22 10:46 | Nephrology Progress Note ---
Date of Service October 22, 2024 Assessment & Plan (1) End stage chronic kidney disease: (2) Anasarca: (3) Thrombocytopenia: (4) Anemia: (5) Ascites due to alcoholic cirrhosis: Plan 64-year-old gentleman with end-stage kidney disease with history of diabetic nephropathy, nephrotic syndrome and hepatorenal syndrome. Recently started on dialysis for anasarca and progressive worsening of kidney function. Had [id number] for dialysis session via right IJ tunneled dialysis catheter, has been having difficulty tolerating UF because of drop in blood pressure. Clinically remained volume overloaded with significant ascites and pleural effusion. --Offered to do another dialysis session today to improve volume status and scrotal edema however he refused dialysis as he had [id number] dialysis for 4 days. --Continue to monitor volume status and electrolyte and tentatively plan for dialysis Thursday. --Has outpatient dialysis set up to be started on Thursday at [facility] [place] however remains at risk for drop in blood pressure, not tolerating UF with underlying end-stage liver disease. Overall prognosis remains poor --continue Lasix Admission and Anticipated Discharge Date Admission Date: October 15, 2024 Elijah Lynn was seen and evaluated this morning with family at bedside. He reports otherwise feeling well, denies any symptoms, feels his abdominal distention slightly improved although he continues to have significant scrotal swelling. Noted to have conversational dyspnea but he denied having any shortness of breath. Electrolyte acceptable. Blood pressure fair this morning. Clinically remained significantly volume overloaded with abdominal distention. Review of Systems Review of Systems: Detailed review of system was done and pertinent positives and negatives are mentioned above. Physical Exam Constitutional: WD/WN, vitals as above + ill appearing and + cachectic Eyes: + anicteric sclerae Neck: normal visual inspection Respiratory: Auscultation: + diminished lung sounds Cardiovascular: Rate/Rhythm: regular rate and regular rhythm Heart Sounds: normal S1 and normal S2 Extremities: + edema Gastrointestinal (Abdomen): Tense ascites, nontender. Skin: + turgor decreased and + skin atrophy Neurologic: no focal motor deficits and not confused Psychiatric: Orientation: alert and oriented x 3 Results & Data Vital Signs (Past 12 Hours) Vital Signs Temp Pulse Pulse Pulse Resp BP Pulse Ox 10/22/24 10:29 36.7 C 75 18 115/65 96 10/22/24 07:02 36.6 C 88 18 145/79 H 96 10/22/24 04:19 37.2 C 94 H 16 138/86 96 10/22/24 01:26 89 10/22/24 00:07 36.9 C 89 16 124/75 93 O2 Del Method 10/22/24 10:29 Room Air 10/22/24 07:02 Room Air 10/22/24 04:19 Room Air 10/22/24 01:26 10/22/24 00:07 Room Air PG Care Time/CCT Total # of Minutes Spent Total Time Spent with Patient: Total time spent is greater than 50% in coordination of care (as documented) at patient's floor/unit and/or counseling patient: Coding Level of Care Code 16548 SUB INP/OBS CARE MIN Diagnoses End stage chronic kidney disease N18.6 Anasarca R60.1 Thrombocytopenia D69.6 Anemia D64.9 Anemia type: unspecified type Ascites due to alcoholic cirrhosis K70.31 (4) Anemia Anemia type: unspecified type Qualified Code(s): D64.9 - Anemia, unspecified
--- NOTE | 2024-10-22 10:51 | Billing Data ---
Date of Service October 22, 2024 Coding Level of Care Code 44805 SUB INP/OBS CARE
[2024-10-23 05:23] LABS: Hematocrit (blood only) 24.7 % (42.0-52.0); Hemoglobin 8.2 g/dl (14.0-18.0); Mean Corpuscular Hemoglobin 30.3 pg (25.0-34.0); Mean Corpuscular Hgb Conc 33.2 g/dL (32.0-36.0); Mean Corpuscular Volume 91.1 fL (80.0-100.0); Mean Platelet Volume 9.8 fL (9.4-12.4); Platelet Count 87 K/uL (130-400); RDW Coefficient of Variation 19.2 % (11.5-14.5); RDW Standard Deviation 60.1 fL (36.4-46.3); Red Blood Count 2.71 M/uL (4.70-6.10); White Blood Count 7.76 K/ul (4.8-10.8)
[2024-10-23 06:16] LABS: Albumin Globulin Ratio 0.6 (0.9-2); Albumin Level 2.1 gm/dl (3.4-5.0); Bilirubin,Total 0.5 mg/dl (0.2-1.0); Calcium 6.8 mg/dl (8.6-10.3); Creatinine Clr Calc Pharmacy 15.5 ml/min; Globulin 3.7 gm/dl (2.5-4.0); Potassium 4.1 mmol/L (3.5-5.1); Total Protein 5.8 gm/dl (6.0-8.3)
--- NOTE | 2024-10-23 07:06 | Hospitalist Progress Note ---
Date of Service October 23, 2024 Assessment & Plan (1) Acute on chronic kidney failure: Plan: Plan 63 y/o with a PMHx of nephrotic syndrome, CKD IIIb/IV, GERD, HTN, severe COPD, alcoholic cirrhosis, IDDM, asthma, HLD who presented with LUQ, nausea, fullness, and bloating. Workup revealing of ascites, large pleural effusion, and acute on chronic renal failure. Admitted for management of fluid and electrolyte status #Cirrhosis 2/2 untreated Hep C and significant alcohol use #Significant fluid overload - ascites, pleural effusion, BLE swelling, anasarca Cirrhosis likely multifactorial with significant alcohol use history and untreated Hepatitis C. Tested positive in 2019. Would treat outpatient likely with Harvoni. CT with signs of varices, no prior bleed. Will need outpatient scope to assess variceal bleed risk. Continue beta blockage with carvedilol for now. Consider spironolactone. daily MELD labs, max 19 GI consult - appreciate recs continue carvedilol outpatient Hep C treatment #Acute on CKD3b/4 #Electrolyte derangements ARF on CKD IV. Large pleural effusion and marked ascites s/p thoracentesis 1.5 L and paracentesis 2 L. Initially treated with Bicarb gtt and aggressive diuresis - furosemide 100 mg IV TID. Patient undergoing HD now that he has access as mainstay of fluid status management. Initially held ASA - resume 10/22. If p atient develops increased pain, fevers, change in mental status, or hemodynamic instability would consider addition of CTX and diagnostic paracentesis. nephro consult - added furosemide 80 mg IV TID 10/21 creatinine improving with HD HD per nephro - last session 10/21-> next session tentatively planned for Tuesday 10/24 continue [place] #Anemia 2/2 CKD Multifactorial - decreased EPO production by the kidney, iron deficiency, ?hyperparathyroidism. Did get 1 uPRBCs 10/20 with appropriate hemoglobin response. EPO vs venofer per nephro AM CBC transfuse < 7 #Anxiety Anxiety surrounding HD. Improved with hydroxyzine. Continue 25 mg TID as needed Code status: Full DVT ppx: SCDs, chemo ppx contraindicated with low hemoglobin and platelets, did resume ASA 2/ Fluids: tolerating PO Diet: renal dialysis and heart healthy diet Dispo: PCU/tele, PT/OT for dispo planning, needs outpatient f/u for chronic conditions Admission and Anticipated Discharge Date Admission Date: October 15, 2024 Subjective Pt seen at bedside this morning. Overall doing well, slept better. Some frustration with continued hospital stay and anxious to go home. Review of Systems Review of Systems: As per above Physical Exam Physical Exam: Constitutional: well-appearing, no acute distress HEENT: NCAT, no conjunctival injection CV: regular rhythm, no murmur appreciated, extremities well-perfused Resp: CTABL, no wheezes/rales/rhonchi appreciated, no increased work of breathing GI: soft, nontender MSK: no gross deformities appreciated Skin: warm, dry, no rash appreciated Neuro: alert, oriented, no focal neurologic deficit appreciated Results & Data Results & Data Vital Signs (Past 12 Hours) Vital Signs Temp Pulse Pulse Resp BP Pulse Ox O2 Del Method 10/23/24 02:57 37.1 C 96 H 20 151/84 H 94 Room Air 10/23/24 01:53 87 10/22/24 23:41 36.7 C 87 20 131/80 95 Room Air 10/22/24 21:00 Room Air
[2024-10-23 07:38] VITALS: TEMP 98.1
--- NOTE | 2024-10-23 09:23 | Nephrology Progress Note ---
Date of Service October 23, 2024 Assessment & Plan (1) End stage chronic kidney disease: (2) Anasarca: (3) Thrombocytopenia: (4) Anemia: (5) Ascites due to alcoholic cirrhosis: Plan 64-year-old gentleman with end-stage kidney disease with history of diabetic nephropathy, nephrotic syndrome and hepatorenal syndrome. Recently started on dialysis for anasarca and progressive worsening of kidney function. Had [id number] for dialysis session via right IJ tunneled dialysis catheter, has been having difficulty tolerating UF because of drop in blood pressure. Clinically remained volume overloaded with significant ascites and pleural effusion. Electrolyte acceptable. Blood pressure fair. --Okay to be discharged as patient is anxious to go home and clinically otherwise he is about the same. He will have dialysis Thursday at outpatient unit. --Has outpatient dialysis set up to be started on Thursday at [facility] [place] however remains at risk for drop in blood pressure, not tolerating UF with underlying end-stage liver disease. Overall prognosis remains poor --continue Lasix Admission and Anticipated Discharge Date Admission Date: October 15, 2024 Elijah Lynn was seen and evaluated this morning. He reports otherwise feeling well, denies any symptoms, anxious to go home. Electrolyte acceptable. Blood pre ssure fair this morning. Clinically remained significantly volume overloaded with abdominal distention. Review of Systems Review of Systems: Detailed review of system was done and pertinent positives and negatives are mentioned above. Physical Exam Constitutional: WD/WN, vitals as above + ill appearing and + cachectic Eyes: + anicteric sclerae Neck: normal visual inspection Respiratory: Auscultation: + diminished lung sounds Cardiovascular: Rate/Rhythm: regular rate and regular rhythm Heart Sounds: normal S1 and normal S2 Extremities: + edema Skin: + turgor decreased and + skin atrophy Neurologic: no focal motor deficits and not confused Psychiatric: Orientation: alert and oriented x 3 Results & Data Vital Signs (Past 12 Hours) Vital Signs Temp Pulse Pulse Resp BP Pulse Ox O2 Del Method 10/23/24 07:14 91 H 10/23/24 07:00 36.7 C 78 16 148/82 H 90 Room Air 10/23/24 02:57 37.1 C 96 H 20 151/84 H 94 Room Air 10/23/24 01:53 87 10/22/24 23:41 36.7 C 87 20 131/80 95 Room Air PG Care Time/CCT Total # of Minutes Spent Total Time Spent with Patient: Total time spent is greater than 50% in coordination of care (as documented) at patient's floor/unit and/or counseling patient: Coding Level of Care Code 71320 SUB INP/OBS CARE 2/35MIN Diagnoses End stage chronic kidney disease N18.6 Anasarca R60.1 Thrombocytopenia D69.6 Anemia D64.9 Anemia type: unspecified type Ascites due to alcoholic cirrhosis K70.31 (4) Anemia Anemia type: unspecified type Qualified Code(s): D64.9 - Anemia, unspecified
[2024-10-23 11:49] VITALS: BP 144/79; RESP 18; O2SAT 91
--- NOTE | 2024-10-23 12:24 | Discharge Summary ---
Date of Service October 23, 2024 Admission HPI Per Admitting Provider The patient is a 63-year-old male with a past medical history including nephrotic syndrome, stage IIIb/stage IV CKD, GERD, syncope, hypertension, vitamin D deficiency, severe COPD, history of heavy alcohol use, liver cirrhosis, diabetic nephropathy, fatty liver, history of tobacco use disorder, Chapman's esophagus, asthma, and hyperlipidemia. The patient presents to the emergency department with about 10 days of left upper quadrant abdominal pain, nausea, fullness and bloating. He is also noticed increased generalized swelling, including legs and feet. He has become more short of breath, and has had decreased oral intake. He his last bowel movement was this morning, without significant change. Imaging studies revealed large right pleural effusion, anasarca, increasing abdominal and pelvic ascites, cirrhosis. Laboratories revealed hyperkalemia with potassium 6.3, and acute renal failure with creatinine 5.66. [facility] Diagnosis Cirrhosis, renal failure Discharge Exam Constitutional: well-appearing, no acute distress HEENT: NCAT, no conjunctival injection CV: regular rhythm, no murmur appreciated, extremities well-perfused Resp: CTABL, no wheezes/rales/rhonchi appreciated, no increased work of breathing GI: soft, + distended, nontender MSK: no gross deformities appreciated Skin: warm, dry, no rash appreciated Neuro: alert, oriented, no focal neurologic deficit appreciated Discharge Data Allergies Allergy/AdvReac Type Severity Reaction Status Date / Time No Known Allergies Allergy Verified 10/18/24 09:29 Consultations 10/15/24 19:15 ED Decision to Admit Stat 10/16/24 00:50 Consult Nephrology Routine 10/16/24 10:21 Consult Vascular Surgery Routine 10/16/24 10:22 Consult Gastroenterology Routine Consult Pulmonology Routine 10/23/24 11:31 Consult ALEJANDROG account liaison Routine Procedures Performed Operation Date: 10/18/24 14:45 Actual Procedures p Perm Catheter Insertion, rIGHT INTERNAL JUGULAR APPROACH, ULTRASOUND LOCALIZATION OF RIGHT INTERNAL JUGULAR VEIN, FLUOROSCOPY FOR POISITIONING, MODERATE SEDATION [id number](Right) - Jackson Levy MD Ordered Studies 10/15/24 17:11 CT abd pelvis wo con Stat CT chest diagnostic wo con Stat 10/16/24 11:22 US renal/blad retro comp Routine 10/17/24 00:00 IR paracentesis abd w/img US Routine IR thoracentesis wo tube US Routine 10/18/24 07:19 EV cvc insrt tunnel wo prt/irrigation laborer Routine US EV guide vascular access Routine Hospital Course (1) Acute on chronic kidney failure: (2) Anemia due to chronic kidney disease: (3) Ascites due to alcoholic cirrhosis: (4) Pleural effusion, right: (5) Diabetic retinopathy, nonproliferative, severe: (6) Hepatitis C: (7) End stage chronic kidney disease: (8) Anasarca: Plan 63 y/o with a PMHx of nephrotic syndrome, CKD IIIb/IV, GERD, HTN, severe COPD, alcoholic cirrhosis, IDDM, asthma, HLD who presented with LUQ, nausea, fullness, and bloating. Workup revealing of ascites, large pleural effusion, and acute on chronic renal failure. Admitted for management of fluid and electrolyte status #Cirrhosis 2/2 untreated Hep C and significant alcohol use #Significant fluid overload - ascites, pleural effusion, BLE swelling, anasarca Cirrhosis likely multifactorial with significant alcohol use history and untreated Hepatitis C. Tested positive in 2019. Would treat outpatient likely with Harvoni. CT with signs of varices, no prior bleed. Will need outpatient scope to assess variceal bleed risk. Continue beta blockage with carvedilol for now. Consider spironolactone. S/p paracentesis and thoracentesis 10/17/24. No signs of SBP continue carvedilol F/u hepatology/GI-> EGD, outpatient Hep C treatment #Acute on CKD3b/4 #Electrolyte derangements ARF on CKD IV. Large pleural effusion and marked ascites s/p thoracentesis 1.5 L and paracentesis 2 L. Initially treated with Bicarb gtt and aggressive diuresis - furosemide 800 mg IV TID. Patient undergoing HD now that he has access as mainstay of fluid status management. Initially held ASA - resume 10/22. nephro consult - plan for Lasix 120mg PO BID, next HD for Wednesday 10/25-> will need out patient f/u with nephrology amlodipine/lisinopril held-> if blood pressure elevated can consider resuming #Anemia 2/2 CKD Multifactorial - decreased EPO production by the kidney, iron deficiency, ?hyperparathyroidism. Did get 1 uPRBCs 10/20 with appropriate hemoglobin response. EPO 10/23 F/u with nephrology/PCP for repeat labs within next week #Anxiety Anxiety surrounding HD. Improved with hydroxyzine. Continue 25 mg TID as needed #DM2 Hemoglobin a1c= 5.6 10/16/24. Well controlled with 10 units Lantus and minimal sliding scale while inpatient. Decreased Lantus to 20 units daily with continued sliding scale, will co ntinue to check blood sugars and adjust regimen with PCP as needed Total Time Total Time Spent Total Time Spent (In Minutes): <30 Discharge Plan Discharge Items Patient Disposition: Home - Self-Care Reason For Visit: ACUTE RENAL FAILURE, HYPERKALEMIA, CIRRHOSIS, ANAS Discharge Diagnosis: Acute renal failure, cirrhosis Condition on Discharge: Serious Activity: Per Instructions section Non-emergency contact: Primary Care Provider Call non-emergency contact if: you have any medication questions and your symptoms worsen Follow-up/Referrals: Vu Cody MD [Primary Care Provider] - Gillian Sandhu MD [Physician] - Diet: Dialysis Renal Addtl Attending Provider Instructions: Kidney Disease - You were started in dialysis for your kidneys while in the hospital. Your next session will be Thursday at [facility] in [place]. You will need a follow-up appointment with nephrology. We increased your dose of Lasix to 120mg twice a day, a new prescription will be sent to the pharmacy for you for this. You were also started on a combination multivitamin to help with vitamin deficiencies that can occur with kidney disease, a prescription will be sent to the pharmacy for that and you should take it daily. You were also started on a medication called sevelamer, which you should take with meals-> it helps to prevent high phosphorus levels that can occur with kidney disease. Cirrhosis (Liver Disease) - You will need outpatient follow-up with GI to discuss treatment for the hepatitis C with an antiviral medication. They will also talk to you about doing a endoscopy (upper GI scope) to evaluated for esophageal varices (enlarged blood vessels in your esophagus) that can develop with cirrhosis. You should avoid drinking alcohol. You should also avoid taking more than 2 grams of Tylenol in a day. Blood Pressure - We have not been giving you your amlodipine or your lisinopril for your blood pressure because it has been on the lower side. The increase dose of lasix can also decrease your blood pressure, so were are going to hold off on restart starting these medications. If your blood pressures are elevated reach out to your primary care/kidney doctor to discuss restarting or adjusting. Diabetics - You have been needed significantly less insulin while you have been here to keep your blood sugars under control. Your hemoglobin a1c (3 month average of blood sugars is 5.6, which is a good number, goal is generally less than 7). We are going to decrease your home insulin dose from 70 units on Lantus (long acting insulin that you take once per day) to 20 units once per day. You should continue to use the meal time insulin based on the sliding scale that you have been using at home, but be sure to check you blood sugars because you may need less than you have needed to the past. If you noticed high or low sugars are you reach out to your primary care doctor about adjusting your insulin regimen further. Anxiety - You have been getting hydroxyzine as needed for anxiety, we will send a prescription which you can take as needed. It can make you drowsy. Pending Studies at Discharge: No Stand-Alone Forms: My [facility], Smoking Cessation Medications and DC Order Prescriptions: New insulin glargine [Lantus U-100 Insulin] 100 unit/mL Solution 20 unit SC HS 30 Days Qty: 6 0RF hydroxyzine HCl 25 mg Tablet 25 mg PO TID PRN (Reason: anxiety) Qty: 30 0RF Renal Caps 1 mg Capsule 1 cap PO QAM Qty: 30 0RF sevelamer carbonate 800 mg Tablet 800 mg PO TIDM 30 Days Qty: 30 0RF furosemide [Lasix] 40 mg tablet 120 mg PO BID 30 Days Qty: 180 0RF Continued carvedilol 6.25 mg tablet 6.25 mg PO BID Qty: 60 2RF Rx Instructions: must administer with a meal/food albuterol sulfate 90 mcg/actuation HFA aerosol inhaler 1 puff inhalation Q4H PRN (Reason: shortness of breath or wheezing) Qty: 18 3RF atorvastatin 40 mg tablet 40 mg PO DAILY Qty: 90 3RF (DME) OneTouch Verio test strips Strip See Dose Instructions .ROUTE .MEDSUPPLY Qty: 400 3RF Dose Instruction: As directed Rx Instructions: Test 4 times daily cholecalciferol (vitamin D3) 1,250 mcg (50,000 unit) capsule 50,000 unit PO .weekly Qty: 12 0RF Novolog FlexPen U-100 Insulin 100 unit/mL (3 mL) insulin pen See Rx Instructions .ROUTE .COMPLEX Qty: 15 3RF Rx Instructions: inject with meals per sliding scale up to TDD 60 units ; TYPICALLY 20 UNITS WITH MEALS (DME) lancets 33 gauge misc See Dose Instructions .ROUTE .MEDSUPPLY Qty: 400 3RF Dose Instruction: As directed Rx Instructions: Test blood sugars 4 times a day omeprazole 20 mg capsule,delayed release(DR/EC) 20 mg PO DAILY Qty: 90 3RF (DME) pen needle, diabetic [BD Ultra-Fine Olivia Pen Needle] 32 gauge x 5/32" needle See Rx Instructions .ROUTE .MEDSUPPLY Qty: 500 3RF Rx Instructions: use to inject insulin 5 x daily triamcinolone acetonide 0.1 % cream 1 applic TOP BID PRN (Reason: Skin Irritation) Qty: 80 3RF Rx Instructions: Apply to areas of the back and arms twice daily x 2 weeks. aspirin 81 mg Tablet,Delayed Release (Dr/Ec) 81 mg PO DAILY Held amlodipine 5 mg tablet 10 mg PO DAILY Qty: 180 3RF Hold Instructions: Held due to hypotension especially in the setting of HD, can consider resuming if elevated BPs lisinopril 40 mg tablet 40 mg PO DAILY Qty: 90 3RF Hold Instructions: Held for TRAN and in the setting of hypotension especially with HD, could consider resuming in BPs elevated Discontinued furosemide [Lasix] 20 mg tablet 20 mg PO DAILY Qty: 30 2RF insulin glargine [Lantus Solostar U-100 Insulin] 100 unit/mL (3 mL) insulin pen 70 unit SQ HS Qty: 60 3RF Discharge Orders: Discharge Order (Routine); Ordered 10/23/24 Ordered By: Maris White Admission Data Admit Date/Time: 10/15/24 20:24 Attending Provider: Chriss Chacko Admit Provider: Blair Rosenthal Primary Care Provider: Vu Cody Other Providers: Blair Rosenthal; Juan Denson; Jackson Levy; Noam Lorenzo; Rik Eduardo; Tomasa Jacobo; Emmie Watters; Melissa Adams; Lauren Lott; Basilio Roper; Jay Cooper; Bob Mcfadden; James Zamudio; Kiara Harvey; Scarlett Sanchez; Jacklyn Moseley; Ariadne Tierney; Karime Ayala; Brian Miguel; Flaquita De La Garza; Lori Sosa Jr; Keny Bowser; Otis Grossman; Cem Herrera; Jeremiah Rodriguez; Miriam Gastelum; Perico Harrison I; Jayne Valera; Emil Ye; Fabrizio Garcia; Ned Smith; Bryant Pollack; Ervin Saab; Dalila Kam; Sonya Andrew Other Interventions: Discharge Summary Assessment (RN) Last Done: 10/23/24 13:11 Supervising Physician Co-Signing Physician Notes I personally examined the patient and verified all marinelli points of history and exam, discussed case, and agree with decision making with Dr White feeling ok, ambulating OK, would like to go home. Vitals noted, in general he is awake and alert pleasant no distress. HEENT normocephalic atraumatic mucous membranes moist. Breathing unlabored no accessory muscle use good effort. Skin without rashes pallor or icterus. Neuro without focal deficits. Cirrhosis, ascites, hydrothorax, end-stage renal diseaseongoing med management, supportive care. ongoing HD. starts as outpt thursday. had transfusion 2 units PRBC for anemia given and hemoglobin responded appropriately. Previously have discussed with patient and that ESRD/cirrhosis with ascites is not a problem that is essentially "fixable" but as long as he is feeling okay, maintaining with the current plan can be very open-ended. Did discuss that hypothetically if hepatitis C was treated and he was then a transplant candidate, that could be an avenue. will ask for outpt hepatology. Overall tried to start to help him understand that these problems will be severe and chronic. otherwise as above; stable for home Resident Activity Tracking Resident Involvement: Resident Care Provided Care Provided: Adult Hospital Medicine
[2024-10-23 13:13] VITALS: PULSE 82
--- NOTE | 2024-10-23 17:13 | Billing Data ---
Date of Service October 23, 2024 Coding Level of Care Code 96506 IN/OBS DISCH 30 MIN/LESS
[2024-10-24] MEDS ORDERED: EPOETIN ALFA 10,000 UNITS/ML VIAL IV ONE (09:00)
== END 2024-10-23 13:54 | disposition home or self-care (01) | DRG 674 ==
LOC: ED 15:34 → SUATTDRO 20:24 → 4W 20:24

== ENCOUNTER 2024-11-10 05:59 | Inpatient (IN) ==
[2024-11-10] MEDS ORDERED: SODIUM CHLORIDE 0.9% 1,000 ML IV SCH (06:15)
[2024-11-10 06:41] LABS: Basophils # (auto) 0.08 K/uL (0.00-0.20); Eosinophils # (auto) 0.43 K/uL (0.00-0.50); Eosinophils % (auto) 5.6 %; Hematocrit (blood only) 26.9 % (42.0-52.0); Hemoglobin 8.9 g/dl (14.0-18.0); Immature Granulocytes # (auto) 0.04 K/uL (0.01-0.20); Immature Granulocytes % (auto) 0.5 %; Lymphocytes # (auto) 1.63 K/uL (1.20-3.40); Lymphocytes % (auto) 21.4 %; Mean Corpuscular Hemoglobin 30.6 pg (25.0-34.0); Mean Corpuscular Hgb Conc 33.1 g/dL (32.0-36.0); Mean Corpuscular Volume 92.4 fL (80.0-100.0); Mean Platelet Volume 9.3 fL (9.4-12.4); Monocytes # (auto) 0.63 K/uL (0.11-0.59); Monocytes % (auto) 8.3 %; Neutrophils # (auto) 4.81 K/uL (1.40-6.50); Neutrophils % (auto) 63.2 %; Platelet Count 147 K/uL (130-400); RDW Standard Deviation 57.3 fL (36.4-46.3); Red Blood Count 2.91 M/uL (4.70-6.10); White Blood Count 7.62 K/ul (4.8-10.8)
[2024-11-10 06:53] LABS: Albumin Globulin Ratio 0.6 (0.9-2); Albumin Level 2.6 gm/dl (3.4-5.0); BUN Creatinine Ratio 10.3 (10-20); Bilirubin,Total 0.7 mg/dl (0.2-1.0); Calcium 7.1 mg/dl (8.6-10.3); Creatinine Clr Calc Pharmacy 17.5 ml/min; Globulin 4.5 gm/dl (2.5-4.0); Magnesium 1.7 mg/dl (1.7-2.4); Potassium 3.7 mmol/L (3.5-5.1); Total Protein 7.1 gm/dl (6.0-8.3)
[2024-11-10 06:58] LABS: Troponin I High Sensitivity 18.5 pg/ml (0-20)
--- NOTE | 2024-11-10 07:03 | Emergency Department Note ---
Impression & Plan Dyspnea, Ascites, Abdominal distension, Pleural effusion ED Provider Note ED Provider Note NAME: VICTORIANO WYNNE AGE:64 SEX: Male : 1960 ARRIVES VIA: Private vehicle INFORMANT: Patient ED PROVIDER(s): Catie Don DO CHIEF COMPLAINT: Increased difficulty breathing HPI: This is a 64-year-old male presents emergency department due to concern for increased difficulty breathing and inability to lie flat last night to sleep. Patient is a dialysis patient and does go on Thursday, , Thursday. He did go to dialysis as scheduled on Thursday. He states he has been noticing over the last several days an increase in abdominal distention and fluid. He states he has previously required drainage of fluid from his abdomen. He states he did speak with staff at dialysis regarding this on Thursday however felt it was worse and came in this morning because he could not sleep overnight. He denies any change in medications and states he is taking them as prescribed. Patient also has lower extremity edema which she states is chronic. He denies fevers, chills, cough or cold symptoms otherwise. PAST MEDICAL HISTORY:See Below PAST SURGICAL HISTORY:See Below FAMILY HISTORY:See Below SOCIAL HISTORY:See Below HOME MEDICATIONS:See Below ALLERGIES:See Below VITALS:See Below PHYSICAL EXAMINATION: GENERAL: alert, well appearing, well nourished, no distress, non-toxic EYE EXAM: normal conjunctiva, PERRL and EOM's grossly intact OROPHARYNX: no exudate, no erythema, lips, buccal mucosa, and tongue normal and mucous membranes are moist NECK: supple, no nuchal rigidity, no adenopathy, non-tender LUNGS: Decreased bilaterally to auscultation. Normal chest wall mechanics, no w/r/r HEART: no murmurs, S1 normal and S2 normal ABDOMEN: abdomen soft, non-tender, normo-active bowel sounds, no masses, no rebound or guarding. Protuberant. SKIN: no rashes, petechiae, orbruising UPPER EXTREMITIES: upper extremities are grossly normal. FROM, nml pulses b/l. LOWER EXTREMITIES: 3+ b/l pitting edema. FROM, nml pulses b/l. NEURO EXAM: Normal sensorium, cranial nerves II-XII grossly intact, normal speech, no facial droop,nogross weakness of arms, no gross weakness of legs. Gross sensation intact. No ataxia. Vital Signs: reviewed and remarkable Differential Diagnosis: pneumonia, bronchitis, COPD/Asthma exacerbation, pneumothorax, pulmonary embolism, congestive heart failure, acute coronary syndrome, as well as others were considered MEDICAL DECISION MAKING: THis is a 64 yo male with CKD and ascites who presents with increased dyspnea. He is due for HD today. Labs drawn and sent, IV established, EKG and CXR performed and interpreted at bedside, and patient placed on telemetry. CXR with large right pleural effusion that appears similar to prior. No evidence for acute infection. Given need for HD and likely need for paracentesis, case discussed with the hospitalist team for additional evaluation and mgmt. I suspect patient with several reasons for dyspnea including large pleural effusion, CKD requiring HD, and ascites causing upward pressure limiting the lung expansion. Consultation(s): 819: Discussed with Dr. Sams, [facility] hospitalist team, for additional evaluation and management. ER Treatment Provided: See below Diagnostics Interpreted By Me: -ECG: Normal sinus at 87, normal axis, normal intervals, no acute ST/T wave changes -Cardiac Monitoring: An order was placed for continuous cardiac monitoring. The monitor shows a rate of 88 with normal sinus rhythm. -Laboratory studies: As stated above and show below. -Imaging studies: cxr: Central line noted, large right pleural effusion, cardiomegaly noted, no significant change compared to prior Triage Nursing Note Reviewed Prior/Outside Records Reviewed Past Med/Surg History Problem List (Updated 11/10/24 @ 20:08 by Catie Don, ) Pleural effusion (Acute) Shortness of breath Abdominal distension (Acute) Ascites (Acute) Dyspnea (Acute) Anemia due to chronic kidney disease Acute on chronic kidney failure Dyspnea on exertion Ascites due to alcoholic cirrhosis Pleural effusion, right Diabetic retinopathy, nonproliferative, severe Hepatitis C End stage chronic kidney disease Acute renal failure Hyperkalemia Anasarca Thrombocytopenia (Acute) Anemia (Acute) Cirrhosis (Acute) Pleural effusion (Acute) Ascites (Acute) Acute hyperkalemia (Acute) TRAN (acute kidney injury) (Acute) Anemia Nephrotic syndrome Stage 3b chronic kidney disease Proteinuria Chronic kidney disease, stage 4 (severe) Tobacco abuse Current use of proton pump inhibitor Implantable loop recorder present Syncope Intermittent complete heart block Dysphagia HTN (hypertension) (Acute) Vitamin D deficiency (Acute) COPD (chronic obstructive pulmonary disease) (Chronic) Dyslipidemia (Acute) Diabetic retinopathy, nonproliferative, mild (Acute) Diabetes mellitus type 2, uncontrolled, with complications (Acute) Diabetic nephropathy associated with type 2 diabetes mellitus (Acute) Dysesthesia (Acute) Fatty liver (Acute) History of cigarette smoking (Acute) Microalbuminuria due to type 2 diabetes mellitus (Acute) Barretts esophagus (~11/2019) Asthma (Chronic) Medical History Acute kidney injury Type 2 diabetes mellitus Surgical History No pertinent past surgical history Family History Grandfather Colon cancer Mother Leukemia Father Diabetes Hypertension Myocardial infarction Grandfather Colon cancer Denies family history of Ovarian cancer Prostate cancer Breast cancer Social History Smoking Status: Current every day smoker Tobacco Type: Cigarettes Age Started Using Tobacco: 17; packs per day: 1; Cigarettes Per Day: 7-10; Second Hand Exposure: Yes; Do You Dip or Chew Tobacco: No; Hx Alcohol Use: No Hx Substance Use: Yes Prescribed Medications: Marijuana Last Used Substance: Days (ago) Last Used Substance Other:: 2 days ago Preferred Language: Faroese Communication Ability: Effective Seating Upholsterer Required: No Beliefs That Will Affect Care: None marital status: Current Living Situation: Spouse and Family Current Living Situation Comment: lives with [id number] current occupational status: unemployed Feels Safe at Home: Yes Childhood Exposure to Second-Hand Smoke: Yes Dental Care, Regularly: No Physical Activity Frequency: Does not Exercise Seatbelt Use: always Sunscreen Use: No Assistive Devices: Glasses and Walker Allergies Allergies Allergy/AdvReac Type Severity Reaction Status Date / Time No Known Allergies Allergy Verified 10/18/24 09:29 Home Meds Home Medications Medication Instructions Recorded Confirmed aspirin 81 mg tablet,delayed 81 mg PO DAILY 06/16/20 11/10/24 release calcium acetate(phosphat bind) 667 667 mg PO TIDWMEAL 11/10/24 11/10/24 mg capsule metoclopramide HCl 5 mg tablet 5 mg PO BID 03/06/25 03/06/25 midodrine 5 mg tablet 5 mg PO [id number] 11/10/24 11/10/24 Previous Rx's Medication Instructions Recorded carvedilol 6.25 mg tablet 6.25 mg PO BID #60 tabs 11/13/23 albuterol sulfate 90 mcg/actuation 1 puff inhalation Q4H PRN 06/02/24 aerosol inhaler shortness of breath or wheezing #18 grams amlodipine 5 mg tablet 10 mg (2 x 5 mg) PO DAILY #180 tabs 06/02/24 atorvastatin 40 mg tablet 40 mg PO DAILY #90 tabs 06/02/24 blood sugar diagnostic (OneTouch #400 ea 06/02/24 Verio test strips) insulin aspart U-100 100 unit/mL See Rx Instructions .Route 06/02/24 (3 mL) subcutaneous pen (Novolog .COMPLEX #15 mL FlexPen U-100 Insulin aspart) lancets 33 gauge #400 ea 06/02/24 lisinopril 40 mg tablet 40 mg PO DAILY #90 tabs 06/02/24 omeprazole 20 mg capsule,delayed 20 mg PO DAILY #90 caps 06/02/24 release pen needle, diabetic 32 gauge x #500 ea 06/02/24" (BD Ultra-Fine Olivia Pen Needle) triamcinolone acetonide 0.1 % 1 applic topical BID PRN Skin 06/02/24 topical cream Irritation #80 grams furosemide 40 mg tablet (Lasix) 120 mg (3 x 40 mg) PO BID 30 days 10/23/24 #180 tabs hydroxyzine HCl 25 mg tablet 25 mg PO TID PRN anxiety #30 tabs 10/23/24 insulin glargine 100 unit/mL 20 unit (0.2 mL) SC HS 30 days #6 10/23/24 subcutaneous solution (Lantus mL U-100 Insulin) vitamin B complex and vitamin C 1 cap PO QAM #30 caps 10/23/24 no.20-folic acid 1 mg capsule (Renal Caps) Results & Data (ED) Vital Signs Vital Signs - 24 hr 11/10/24 06:03 11/10/24 06:22 11/10/24 06:23 Temperature 36.6 C Temperature Source Temporal Artery Scan Pulse Rate 91 H 88 Pulse Rate from SpO2 Sensor Pulse Rhythm Regular Pulse Strength Normal Respiratory Rate 18 Respiratory Effort / Characteristics Non-Labored Spontaneous Respiratory Depth Normal Respiratory Pattern Regular Blood Pressure 147/78 H Blood Pressure Mean 101 Blood Pressure Position Sitting Pulse Oximetry 95 96 Oxygen Delivery Method Room Air Room Air Oxygen Flow Rate Sepsis Recent Fever Within 48 Hours No Sepsis New/Unexplained Change in Mental Status N/A Sepsis Action Taken by Nursing No Action Required 11/10/24 06:28 11/10/24 06:30 11/10/24 06:45 Temperature Temperature Source Pulse Rate 85 85 Pulse Rate from SpO2 Sensor 85 85 Pulse Rhythm Pulse Strength Respiratory Rate 23 28 H Respiratory Effort / Characteristics Respiratory Depth Respiratory Pattern Blood Pressure Blood Pressure Mean Blood Pressure Position Pulse Oximetry 97 97 97 Oxygen Delivery Method Room Air Room Air Oxygen Flow Rate Sepsis Recent Fever Within 48 Hours Sepsis New/Unexplained Change in Mental Status Sepsis Action Taken by Nursing 11/10/24 06:46 11/10/24 06:46 11/10/24 07:06 Temperature Temperature Source Pulse Rate 85 Pulse Rate from SpO2 Sensor 85 Pulse Rhythm Pulse Strength Respiratory Rate 19 Respiratory Effort / Characteristics Respiratory Depth Respiratory Pattern Blood Pressure 146/91 H 146/91 H Blood Pressure Mean 111 111 Blood Pressure Position Pulse Oximetry 96 Oxygen Delivery Method Oxygen Flow Rate Sepsis Recent Fever Within 48 Hours Sepsis New/Unexplained Change in Mental Status Sepsis Action Taken by Nursing 11/10/24 08:06 Temperature Temperature Source Pulse Rate 85 Pulse Rate from SpO2 Sensor 86 Pulse Rhythm Pulse Strength Respiratory Rate 36 H Respiratory Effort / Characteristics Respiratory Depth Respiratory Pattern Blood Pressure Blood Pressure Mean Blood Pressure Position Pulse Oximetry 95 Oxygen Delivery Method Nasal Cannula Oxygen Flow Rate 2 Sepsis Recent Fever Within 48 Hours Sepsis New/Unexplained Change in Mental Status Sepsis Action Taken by Nursing Laboratory Data 11/10/24 06:17 11/10/24 06:17 Lab Results 11/10/24 11/10/24 Range/Units 06:17 06:23 WBC 7.62 (4.8-10.8) K/ul RBC 2.91 L (4.70-6.10) M/uL Hgb 8.9 L (14.0-18.0) g/dl Hct 26.9 L (42.0-52.0) % MCV 92.4 (80.0-100.0) fL MCH 30.6 (25.0-34.0) pg MCHC 33.1 (32.0-36.0) g/dL RDW Std Deviation 57.3 H (36.4-46.3) fL RDW Coeff of Ca 17.0 H (11.5-14.5) % Plt Count 147 (130-400) K/uL MPV 9.3 L (9.4-12.4) fL Immature Gran % (Auto) 0.5 % Neut % (Auto) 63.2 % Lymph % (Auto) 21.4 % [place] % (Auto) 8.3 % Eos % (Auto) 5.6 % Baso % (Auto) 1.0 % Neut # (Auto) 4.81 (1.40-6.50) K/uL Lymph # (Auto) 1.63 (1.20-3.40) K/uL [place] # (Auto) 0.63 H (0.11-0.59) K/uL Eos # (Auto) 0.43 (0.00-0.50) K/uL Baso # (Auto) 0.08 (0.00-0.20) K/uL Immature Gran # (Auto) 0.04 (0.01-0.20) K/uL PT 11.8 (9.0-12.0) Seconds INR 1.1 (0.9-1.1) Sodium 143 (136-145) mmol/L Potassium 3.7 (3.5-5.1) mmol/L Chloride 104 (98-107) mmol/L Carbon Dioxide 33 H (21-32) mmol/L Anion Gap 6 (3-11) BUN 40 H (6-23) mg/dl Creatinine 3.89 H (0.6-1.4) mg/dl Est Cr Clr Drug Dosing 17.5 ml/min eGFR 16.57 BUN/Creatinine Ratio 10.3 (10-20) Glucose 124 H (70-99(Fasting)) mg/dl Calcium 7.1 L (8.6-10.3) mg/dl Magnesium 1.7 (1.7-2.4) mg/dl Total Bilirubin 0.7 (0.2-1.0) mg/dl AST 29 (13-39) U/L ALT 16 (7-52) U/L Alkaline Phosphatase 290 H (34-104) U/L Troponin I High Sens 18.5 (0-20) pg/ml B-Natriuretic Peptide 382 H (0-100) pg/ml Total Protein 7.1 (6.0-8.3) gm/dl Albumin 2.6 L (3.4-5.0) gm/dl Globulin 4.5 H (2.5-4.0) gm/dl Albumin/Globulin Ratio 0.6 L (0.9-2) Adenovirus (PCR) Not Detected (NotDetected) B. pertussis DNA (PCR) Not Detected (NotDetected) B.parapertussis DNA PCR Not Detected (NotDetected) C. pneumoniae DNA (PCR) Not Detected (NotDetected) Coronavirus OC43 (PCR) Not Detected (NotDetected) Coronavirus HKU1 (PCR) Not Detected (NotDetected) Coronavirus 229E (PCR) Not Detected (NotDetected) SARS-CoV-2 (PCR) Not Detected (NotDetected) Coronavirus NL63 (PCR) Not Detected (NotDetected) Human Metapneumovir PCR Not Detected (NotDetected) Influenza Type A (PCR) Not Detected (NotDetected) Influenza Type B (PCR) Not Detected (NotDetected) M. pneumoniae (PCR) Not Detected (NotDetected) Parainfluenza 1 (PCR) Not Detected (NotDetected) Parainfluenza 2 (PCR) Not Detected (NotDetected) Parainfluenza 3 (PCR) Not Detected (NotDetected) Parainfluenza 4 (PCR) Not Detected (NotDetected) RSV (PCR) Not Detected (NotDetected) Entero/Rhino (PCR) Not Detected (NotDetected) Administered Medications Calcium Acetate (Calcium Acetate 667 Mg Cap/Tab) 667 mg PO TIDM BRANDON Stop: 12/10/24 12:44 Last Admin: 11/10/24 17:48 Dose: 667 mg Documented By: Admin: 11/10/24 15:29 Dose: Not Given Documented By: FELIPE Furosemide (Furosemide 40 Mg Tab) 120 mg PO BID17 BRANDON Stop: 12/10/24 16:59 Last Admin: 11/10/24 17:48 Dose: 120 mg Documented By: CYNDI Insulin Aspart (Insulin Aspart Per Unit Charge) 0 units SC ACHS BRANDON Stop: 12/10/24 11:29 Last Admin: 11/10/24 18:27 Dose: 5 units Documented By: CYNDI Co-signed By: AMS Admin: 11/10/24 13:34 Dose: Not Given Documented By: ARS Metoclopramide HCl (Metoclopramide Hcl 5 Mg Tablet) 5 mg PO BIDM [facility] Stop: 12/10/24 16:59 Last Admin: 11/10/24 17:48 Dose: 5 mg Documented By: MMS Midodrine (Midodrine Hcl 2.5 Mg Tab) 5 mg PO TuThSa@0900 BR[facility]ON Stop: 12/10/24 12:44 Last Admin: 11/10/24 15:28 Dose: Not Given Documented By: LKJeane Pantoprazole Sodium (Pantoprazole 40 Mg Tab) 40 mg PO DAILY [facility] Stop: 12/10/24 12:44 Last Admin: 11/10/24 16:26 Dose: 40 mg Documented By: FELIPE Discontinued Medications Epoetin Laureano (Epoetin Laureano 10,000 Units/Ml Vial) 10,000 units IV ONE ONE Stop: 11/10/24 09:51 Last Admin: 11/10/24 15:26 Dose: Not Given Documented By: FELIPE Furosemide (Furosemide 40 Mg/4 Ml Vial) 120 mg IV ONE ONE Stop: 11/10/24 07:41 Last Admin: 11/10/24 07:57 Dose: 120 mg Documented By: CHRISTIANO Heparin Sodium (Porcine) (Heparin Sod (Porcine) 1000 Unit/Ml) 2,000 units IV ONE ONE Stop: 11/10/24 09:49 Last Admin: 11/10/24 13:26 Dose: Not Given Documented By: KELSIE Heparin Sodium (Porcine) (Heparin Sod (Porcine) 1000 Unit/Ml) 500 units IV Q1H [facility] Stop: 11/10/24 11:01 Last Admin: 11/10/24 13:26 Dose: Not Given Documented By: Admin: 11/10/24 13:26 Dose: Not Given Documented By: KELSIE Imaging Data Radiologist's Impression: Chest X-Ray 11/10/24 06:10 EXAM: XR chest 1V portable CLINICAL HISTORY: Dyspnea TECHNIQUE: An X-ray image of the chest is obtained in AP projection. COMPARISON: Last X-ray 10/21/2024, CT 10/15/2024 FINDINGS: Right CVL noted, its tip in SVC. Cardiac pace-maker noted. Multiple metallic foci noted around left shoulder and left thorax. Pulmonary Parenchyma: Severe right pleural effusion, causing lung compression collapse with, minimal aerated right upper zone. The left costophrenic angle is also minimally blunted. could be mild pleural effusion/thickening. Prominent left lung vascular markings, with left para-hilar nodularity. Heart and Mediastinum: Mild cardiomegaly. No mediastinal widening or masses. No hilar or mediastinal lymphadenopathy. Bony Thorax: Bony thorax appears intact without fractures or deformities. Soft Tissues: Soft tissues overlying the chest wall are unremarkable. IMPRESSION: 1. Right CVL noted, its tip in SVC. 2. Multiple metallic foci noted around left shoulder and left thorax. Stable. 3. Redemonstration of severe right pleural effusion, causing lung compression collapse with, minimal aerated right upper zone. 4. The left costophrenic angle is also minimally blunted. Could be mild pleural effusion/thickening. (New). 5. Mild cardiomegaly. Stable. Electronically signed by Clara Meza 11-10-2024 07:02 AM Discharge Plan Visit Data Chief Complaint: Shortness of Breath/Dyspnea Stated Complaint: TROUBLE BREATHING, FLUID BUILDUP ED Provider: Catie Don Discharge Problem: Dyspnea, Ascites, Abdominal distension, Pleural effusion Patient Disposition: Admitted As Inpatient Discharge Instructions Interventions: ED Discharge Assessment Last Done: 11/10/24 16:49
[2024-11-10 07:05] LABS: INR 1.1 (0.9-1.1); Prothrombin Time 11.8 Seconds (9.0-12.0)
[2024-11-10 07:36] LABS: Adenovirus PCR Not Detected (NotDetected); Bordetella parapertussis PCR Not Detected (NotDetected); Bordetella pertussis PCR Not Detected (NotDetected); Chlamydia pneumoniae PCR Not Detected (NotDetected); Coronavirus 229E PCR Not Detected (NotDetected); Coronavirus CoV-2 (COVID19)PCR Not Detected (NotDetected); Coronavirus HKU1 PCR Not Detected (NotDetected); Coronavirus NL63 PCR Not Detected (NotDetected); Coronavirus OC43PCR Not Detected (NotDetected); Human Metapneumovirus PCR Not Detected (NotDetected); Influenza A PCR Not Detected (NotDetected); Influenza B PCR Not Detected (NotDetected); Mycoplasma pneumoniae PCR Not Detected (NotDetected); Parainfluenza Virus 1 PCR Not Detected (NotDetected); Parainfluenza Virus 2 PCR Not Detected (NotDetected); Parainfluenza Virus 3 PCR Not Detected (NotDetected); Parainfluenza Virus 4 PCR Not Detected (NotDetected); Respiratory Syncytial VirusPCR Not Detected (NotDetected); Rhinovirus/Enterovirus PCR Not Detected (NotDetected)
[2024-11-10] MEDS: FUROSEMIDE 40 MG/4 ML VIAL IV ONE (07:57)
--- NOTE | 2024-11-10 08:20 | Electrocardiogram Report ---
Test Reason : Blood Pressure : */* mmHG Vent. 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
--- NOTE | 2024-11-10 08:23 | History & Physical Report ---
Date of Service November 10, 2024 Assessment & Plan (1) Shortness of breath: (2) Ascites: (3) Pleural effusion, right: (4) Hepatitis C: (5) End stage chronic kidney disease: (6) Pleural effusion: (7) HTN (hypertension): Plan 64 year old male with ESRD on dialysis and liver cirrhosis presents to the ER with worsening abdominal distension causing shortness of breath #Shortness of breath / right pleural effusion (hepatic hydrothorax)/ Ascites / Liver cirrhosis Still has significant right pleural effusion although this appears unchanged following thoracentesis last admission I suspect this is lower likelihood of causing his acute shortness of breath More likely due to abdominal distension with ascites - plan for paracentesis on non dialysis day (tomorrow), this will likely need to be set up routinely as outpatient unless he undergoes TIPS procedure in the future If still significantly short of breath following paracentesis could consider repeat thoracentesis #ESRD on dialysis Management per nephrology, consulted #T2DM Reports taking Lantus 30 units last night although 35 units last admission caused significant hypoglycemia. Likely increased carbohydrates at home and will reduce back to his prior admission stable Lantus dosing of 10 units HS Novolog: --Goal BSG Range: Low 110 mg/dL, High 140 mg/dL --Correction Factor: 45 mg/dL/unit --Carbohydrate ratio = 15 g/unit --BSGs ACHS if eating, q6h if npo #HTN Patient not taking any regular anti-hypertensives despite given last admission and on medication list and given hypotension last admission will avoid restarti ng them currently other than his furosemide to help with fluid status in between dialysis sessions VTE Prophylaxis - deferred pre-dialysis Diet - dialysis renal Disposition - admit to med/tele Admission and Anticipated Discharge Date Admission Date: November 10, 2024 History of Present Illness Chief Complaint: Shortness of breath Primary Care Provider: Vu Cody MD Shane Jones is a 64-year-old male who presents to the ER with shortness of breath and increasing abdominal distention. He was recently admitted for liver cirrhosis and end stage renal disease with right pleural effusion and ascites undergoing dialysis, paracentesis and thoracentesis. He reports significant improvement following these procedures but after discharge on October 23 the fluid in his abdomen has been gradually increasing again. On Thursday at dialysis he reports nephrology had told him they were going to arrange outpatient paracentesis although he is yet to hear for an appointment for this. He reports he has follow up booked with [facility] for treatment/management of his liver cirrhosis but hasn't been seen yet. He undergoes dialysis on Thursday, and Thursday. He woke up today and had such trouble breathing that he decided he couldn't wait longer for the paracentesis. He has mild right sided abdominal pain on palpation only. No fever or chills. No other respiratory, gastrointestinal or urinary symptoms. Allergies Allergy/AdvReac Type Severity Reaction Status Date / Time No Known Allergies Allergy Verified 10/18/24 09:29 Home Medications Medication Instructions Recorded Confirmed Type aspirin 81 mg tablet,delayed 81 mg PO DAILY 06/16/20 11/10/24 History release carvedilol 6.25 mg tablet 6.25 mg PO BID #60 tabs 11/13/23 11/10/24 Rx albuterol sulfate 90 mcg/actuation 1 puff inhalation Q4H PRN 06/02/24 11/10/24 Rx aerosol inhaler shortness of breath or wheezing #18 grams amlodipine 5 mg tablet 10 mg (2 x 5 mg) PO DAILY #180 tabs 06/02/24 11/10/24 Rx atorvastatin 40 mg tablet 40 mg PO DAILY #90 tabs 06/02/24 11/10/24 Rx blood sugar diagnostic (OneTouch #400 ea 06/02/24 Rx Verio test strips) insulin aspart U-100 100 unit/mL See Rx Instructions .Route 06/02/24 11/10/24 Rx (3 mL) subcutaneous pen (Novolog .COMPLEX #15 mL FlexPen U-100 Insulin aspart) lancets 33 gauge #400 ea 06/02/24 Rx lisinopril 40 mg tablet 40 mg PO DAILY #90 tabs 06/02/24 11/10/24 Rx omeprazole 20 mg capsule,delayed 20 mg PO DAILY #90 caps 06/02/24 11/10/24 Rx release pen needle, diabetic 32 gauge x #500 ea 06/02/24 Rx 5/32" (BD Ultra-Fine Olivia Pen Needle) triamcinolone acetonide 0.1 % 1 applic topical BID PRN Skin 06/02/24 11/10/24 Rx topical cream Irritation #80 grams furosemide 40 mg tablet (Lasix) 120 mg (3 x 40 mg) PO BID 30 days 10/23/24 11/10/24 Rx #180 tabs hydroxyzine HCl 25 mg tablet 25 mg PO TID PRN anxiety #30 tabs 10/23/24 11/10/24 Rx insulin glargine 100 unit/mL 20 unit (0.2 mL) SC HS 30 days #6 10/23/24 11/10/24 Rx subcutaneous solution (Lantus mL U-100 Insulin) vitamin B complex and vitamin C 1 cap PO QAM #30 caps 10/23/24 11/10/24 Rx no.20-folic acid 1 mg capsule (Renal Caps) calcium acetate(phosphat bind) 667 667 mg PO TIDWMEAL 11/10/24 11/10/24 History mg capsule metoclopramide HCl 5 mg tablet 5 mg PO BID 11/10/24 11/10/24 History midodrine 5 mg tablet 5 mg PO 3XWK 11/10/24 11/10/24 History Past Med/Surg History Problem List (Updated 11/10/24 @ 20:08 by Catie Don, ) Pleural effusion (Acute) Shortness of breath Abdominal distension (Acute) Ascites (Acute) Dyspnea (Acute) Anemia due to chronic kidney disease Acute on chronic kidney failure Dyspnea on exertion Ascites due to alcoholic cirrhosis Pleural effusion, right Diabetic retinopathy, nonproliferative, severe Hepatitis C End stage chronic kidney disease Acute renal failure Hyperkalemia Anasarca Thrombocytopenia (Acute) Anemia (Acute) Cirrhosis (Acute) Pleural effusion (Acute) Ascites (Acute) Acute hyperkalemia (Acute) TRAN (acute kidney injury) (Acute) Anemia Nephrotic syndrome Stage 3b chronic kidney disease Proteinuria Chronic kidney disease, stage 4 (severe) Tobacco abuse Current use of proton pump inhibitor Implantable loop recorder present Syncope Intermittent complete heart block Dysphagia HTN (hypertension) (Acute) Vitamin D deficiency (Acute) COPD (chronic obstructive pulmonary disease) (Chronic) Dyslipidemia (Acute) Diabetic retinopathy, nonproliferative, mild (Acute) Diabetes mellitus type 2, uncontrolled, with complications (Acute) Diabetic nephropathy associated with type 2 diabetes mellitus (Acute) Dysesthesia (Acute) Fatty liver (Acute) History of cigarette smoking (Acute) Microalbuminuria due to type 2 diabetes mellitus (Acute) Barretts esophagus (~11/2019) Asthma (Chronic) Medical History Acute kidney injury Type 2 diabetes mellitus Surgical History No pertinent past surgical history Family History Grandfather Colon cancer Mother Leukemia Father Diabetes Hypertension Myocardial infarction Grandfather Colon cancer Denies family history of Ovarian cancer Prostate cancer Breast cancer Social History Smoking Status: Current every day smoker Tobacco Type: Cigarettes Age Started Using Tobacco: 17; packs per day: 1; Cigarettes Per Day: 7-10; Second Hand Exposure: Yes; Do You Dip or Chew Tobacco: No; Hx Alcohol Use: No Hx Substance Use: Yes Prescribed Medications: Marijuana Last Used Substance: Days (ago) Last Used Substance Other:: 2 days ago Preferred Language: Zambian Communication Ability: Effective Delivery Architect Required: No Beliefs That Will Affect Care: None marital status: Current Living Situation: Spouse and Family Current Living Situation Comment: lives with [id number]-uq-ieh current occupational status: unemployed Feels Safe at Home: Yes Childhood Exposure to Second-Hand Smoke: Yes Dental Care, Regularly: No Physical Activity Frequency: Does not Exercise Seatbelt Use: always Sunscreen Use: No Assistive Devices: Glasses and Walker Review of Systems Review of Systems: All systems reviewed & are unremarkable except as noted in HPI & below Physical Exam Constitutional: WD/WN, vitals as above ENMT: external ear and nose normal, oropharynx normal Respiratory: + labored breathing and + uses accessory muscles Auscultation: + breath sounds absent (right sided); no crackles and no wheezes Cardiovascular: Rate/Rhythm: regular rate and regular rhythm Extremities: + pedal edema (3+ bilateral equal) Gastrointestinal (Abdomen): normal bowel sounds, soft, nontender, no hepatosplenomegaly Skin: no rashes, warm and dry Results & Data Results & Data Vital Signs (Past 12 Hours) Vital Signs Temp Pulse Resp BP Pulse Ox O2 Del Method 11/10/24 06:30 85 23 97 Room Air 11/10/24 06:28 97 Room Air 11/10/24 06:23 88 11/10/24 06:22 96 Room Air 11/10/24 06:03 36.6 C 91 H 18 147/78 H 95 Room Air Laboratory Results Abnormal lab results 11/10/24 11/10/24 11/10/24 Range/Units 06:17 13:17 17:31 Carbon Dioxide 33 H (21-32) mmol/L BUN 40 H (6-23) mg/dl Creatinine 3.89 H (0.6-1.4) mg/dl Glucose 124 H (70-99(Fasting)) mg/dl POC Glucose 141 H 153 H (70-99) mg/dl Calcium 7.1 L (8.6-10.3) mg/dl Alkaline Phosphatase 290 H (34-104) U/L B-Natriuretic Peptide 382 H (0-100) pg/ml Albumin 2.6 L (3.4-5.0) gm/dl Globulin 4.5 H (2.5-4.0) gm/dl Albumin/Globulin Ratio 0.6 L (0.9-2) 11/10/24 Range/Units 20:25 Carbon Dioxide (21-32) mmol/L BUN (6-23) mg/dl Creatinine (0.6-1.4) mg/dl Glucose (70-99(Fasting)) mg/dl POC Glucose 175 H (70-99) mg/dl Calcium (8.6-10.3) mg/dl Alkaline Phosphatase (34-104) U/L B-Natriuretic Peptide (0-100) pg/ml Albumin (3.4-5.0) gm/dl Globulin (2.5-4.0) gm/dl Albumin/Globulin Ratio (0.9-2) Diagnostic Findings XR chest 1V portable CLINICAL HISTORY: Dyspnea TECHNIQUE: An X-ray image of the chest is obtained in AP projection. COMPARISON: Last X-ray 10/21/2024, CT 10/15/2024 FINDINGS: Right CVL noted, its tip in SVC. Cardiac pace-maker noted. Multiple metallic foci noted around left shoulder and left thorax. Pulmonary Parenchyma: Severe right pleural effusion, causing lung compression collapse with, minimal aerated right upper zone. The left costophrenic angle is also minimally blunted. could be mild pleural effusion/thickening. Prominent left lung vascular markings, with left para-hilar nodularity. Heart and Mediastinum: Mild cardiomegaly. No mediastinal widening or masses. No hilar or mediastinal lymphadenopathy. Bony Thorax: Bony thorax appears intact without fractures or deformities. Soft Tissues: Soft tissues overlying the chest wall are unremarkable. IMPRESSION: 1. Right CVL noted, its tip in SVC. 2. Multiple metallic foci noted around left shoulder and left thorax. Stable. 3. Redemonstration of severe right pleural effusion, causing lung compression collapse with, minimal aerated right upper zone. 4. The left costophrenic angle is also minimally blunted. Could be mild pleural effusion/thickening. (New). 5. Mild cardiomegaly. Stable. Medications Administered ER Medications Given: Lasix 120mg IV ECG Rate (beats per minute): 87 Rhythm: normal sinus Findings: + other (premature supraventricular complexes) Comparison ECG Date: from (Oct 16, 2024) Change: the following changes noted (Non-specific T wave abnormality no longer eveident in lateral leads, premature supraventricular complexes now present) Code Status & VTE Plan Code Status Full VTE Prophylaxis Plan VTE Prophylaxis will be ordered: Yes PG Care Time/CCT Total # of Minutes Spent Total Time Spent with Patient: Total time spent is greater than 50% in coordination of care (as documented) at patient's floor/unit and/or counseling patient: Coding Level of Care Code 97859 INT INP/OBS CARE 3/75MIN Diagnoses Shortness of breath R06.02 Ascites R18.8 Pleural effusion, right J90 Hepatitis C B19.20 End stage chronic kidney disease N18.6 Pleural effusion J90 Primary hypertension I10 Hypertension type: primary hypertension (7) HTN (hypertension) Hypertension type: primary hypertension Qualified Code(s): I10 - Essential (primary) hypertension
[2024-11-10] MEDS ORDERED: GLUCOSE 40% GEL 15 GM TUBE PO PRN (10:30)
[2024-11-10] MEDS ORDERED: GLUCOSE 10 TAB/TUBE PO PRN (10:30)
[2024-11-10] MEDS ORDERED: DEXTROSE 50% 50 ML SYRINGE IV PRN (10:30)
[2024-11-10] MEDS ORDERED: CARBOHYDRATES FOR HYPOGLYCEMIA PO PRN (10:30)
[2024-11-10] MEDS ORDERED: GLUCAGON FOR INJ 1 MG VIAL SQ PRN (10:30)
--- OUTSIDE RECORDS SUMMARY | 2024-11-10 10:49 | External Medical Summary | Summary of Care ---
Author Name Unknown Organization [facility] Address [address] [place] [address] Phone [phone] Care Team Providers Care Supervisor Ornamental Ironworking Name Role Phone Pro, Vu Gaines MD Primary Care Provider +1- [phone] Reason for Visit * Reason Onset Date Comments Appointment 10/28/2024 hepatology Encounter Details Date Type Department Care Team (Late st Contact Info) Description 10/28/2024 Telephone Gastroenterology, [facility] [address] [place] [address] Flaquita De La Garza DO [address] [place] [address] Appointment (hepatology) Allergies No known active allergiesdocumented as of this encounter (statuses as of 10/28/2024) Medications Aspirin 81 MG Tablet Take 1 [...] 11/28/19 22 Active Vitamin D3 1.25 MG (32027 UT) Oral Capsule Take 1 Capsule by [...] as of this encounter (statuses as of 10/28/2024) Active Problems Problem Noted Date Diagnosed Date Coronary artery disease invo lving [place] coronary artery of [place] heart without angina pectoris 08/17/2020 Syncope 08/17/2020 NSVT (nonsustained ventricular tachycardia) 08/07 HTN, goal below 140/90 08/17/2020 Hyperlipidemia with target LDL less than 70 08/07 Diabetes mellitus without complication 0 Gastroparesis 01/31/2020 documented as of this encounter (statuses as of 10/28/2024) Social History Tobacco Use Types Packs/Day Years [...] on file documented as of this encounter Miscellaneous Notes * Telephone Encounter - Latricia Espinoza OSA - 10/28/2024 8:56 AM EST Received referral / records that pt needs seen by Hepatology Lmm Please schedule next available and place on move up list JAKE Harris 10/28/2024 8:59 AM documented in this encounter Plan of Treatment Scheduled Procedures Name Priority Associated Diagnoses Date/Ti me COLONOSCOPY FLEXIBLE PROXIMAL DIAGNOSTIC Recall History of colonic polyps ESOPHAGOGASTRODUODENOSCOPY ( EGD), FLEXIBLE, TRANSORAL, DIAGNOSTIC Recall Chapman's esophagus Health Maintenance Due Date Last Done Comments DISCUSS TOBACCO CESSATION (REFER TO SMARTSET #7818) 1961 Depression Screening 1973 HIV Screening 1976 Diabetic Foot Exam 1979 Hepatitis C Screening 1979 DTap/Tdap Vaccines (1 - Tdap) 1980 Pneumococcal Vaccine: 50+ Years (1 of 2 - PCV) 1980 Cologuard [...] on patient's age to complete this topic Meningitis B Vaccine (Bexsero/Trumemba) Aged Out No longer eligible based on patient's age to complete this topic documented as of this encounter Medical Devices Implanted Type Area Buck Swamper Device Identifier Shelf Expiration Date Model / Serial / Lot Duraclip 16mm Xlg Repostn - [id number] Implanted:Qty: 1 on 11/19/2023 by Flaquita De La Garza DO at ENDOSCOPY [facility] [employer] 10/23/2024 [id number] / / [id number] documented as of this encounter Care Teams Supervisor Ornamental Ironworking Relationship Specialty Start Date End Date Pro, Vu Gaines MD [address] [place] [address] PCP - General Internal Medicine 10/26/19 documented as of this encounter
--- OUTSIDE RECORDS SUMMARY | 2024-11-10 10:49 | External Medical Summary | Summary of Care ---
Author Name Unknown Organization [facility] Address [address] [place] [address] Phone [phone] Care Team Providers Care Supervisor Industrial Garment Name Role Phone Pro, Vu Gaines MD Primary Care Provider +1- [phone] Encounter Details Date Type Department Care Team (Late st Contact Info) Description 11/08/2024 Telephone Hepatology, [place] [address] [place] [address] [facility] [address] [place] [address] Allergies No known active allergiesdocumented as of this encounter (statuses as of 11/08/2024) Medications Aspirin 81 MG Tablet Take 1 [...] TO 60 UNITS TOTAL DAILY DOSE 01/16/20 Active Atorvastatin Calcium 40 MG Oral Tablet (Lipitor) Take 1 Tab by mouth daily. 90 Tab 3 10/18/19 21 Active amLODIPine Besylate 5 MG Oral Tablet (Norvasc) Take by mouth 1 Tablet in the morning. 34 Tablet 11 11/28/19 22 Active Vitamin D3 1.25 MG (56263 UT) Oral Capsule Take 1 Capsule by [...] as of this encounter (statuses as of 11/08/2024) Active Problems Problem Noted Date Diagnosed Date Coronary artery disease invo lving [place] coronary artery of [place] heart without angina pectoris 08/17/2020 Syncope 08/17/2020 NSVT (nonsustained ventricular tachycardia) 08/07 HTN, goal below 140/90 08/17/2020 Hyperlipidemia with target LDL less than 70 08/07 Diabetes mellitus without complication 0 Gastroparesis 01/31/2020 documented as of this encounter (statuses as of 11/08/2024) Social History Tobacco Use Types Packs/Day Years [...] encounter Miscellaneous Notes * Telephone Encounter - Wandy Ashton [facility] - 11/08/2024 3:24 PM EST I called the referring provider's office asking for additional supporting documents for the referral - any hepatitis testing and recent liver enzymes as well as imaging to support the diagnosis of cirrhosis. The patient is scheduled for a clinic appointment at [facility] on 03/27/[address] De La Garza. Wandy Ashton, PharmD, [facility] Clinical Pharmacist, Hepatology 11/08/2024 3:24 PM documented in this encounter Plan of Treatment Upcoming Encounters Date Type Department Care Team (Late st Contact Info) Description 03/20/2025 7:00 AM EDT Pharmacy Hepatology, [place] [address] [facility] [place] [address] Kia, Pharmacist [facility]at[facility] [address] [facility] [place] [address] 03/27/2025 8:20 AM EDT Office Visit Hepatology, [facility] [address] [facility] [place] [address] Flaquita De La Garza DO [address] [facility] [place] [address] Scheduled Procedures Name Priority Associated Diagnoses Date/Ti me COLONOSCOPY FLEXIBLE PROXIMAL DIAGNOSTIC Recall History of colonic polyps ESOPHAGOGASTRODUODENOSCOPY ( EGD), FLEXIBLE, TRANSORAL, DIAGNOSTIC Recall Chapman's esophagus Health Maintenance Due Date Last Done Comments DISCUSS TOBACCO CESSATION (REFER TO SMARTSET #9988) 1961 Depression Screening 1973 HIV Screening 1976 [...] this encounter Medical Devices Implanted Type Area Customer Development Manager Device Identifier Shelf Expiration Date Model / Serial / Lot Duraclip 16mm Xlg Repostn - [id number] Implanted:Qty: 1 on 11/19/2023 by Flaquita De La Garza DO at ENDOSCOPY [facility] [employer] [facility] 10/23/2024 [id number] / / [id number] documented as of this encounter Care Teams Supervisor Industrial Garment Relationship Specialty Start Date End Date Pro, Vu Gaines MD [address] [place] [facility] [place] [address] PCP - General Internal Medicine 10/26/19 documented as of this encounter
--- OUTSIDE RECORDS SUMMARY | 2024-11-10 10:50 | External Medical Summary | Summary of Care ---
Author Name Unknown Organization [facility] Address [address] [place] [address] Phone [phone] Care Team Providers Care Office Services Manager Name Role Phone Pro, Vu Gaines MD Primary Care Provider +1- [phone] Encounter Details Date Type Department Care Team (Late st Contact Info) Description 10/18/2024 Population Health External Data Unspecified Department Allergies No known active allergiesdocumented as of this encounter (statuses as of 10/18/2024) Medications Aspirin 81 MG Tablet Take 1 [...] 11 11/28/19 Active Vitamin D3 1.25 MG (36718 UT) Oral Capsule Take 1 Capsule by [...] as of this encounter (statuses as of 10/18/2024) Active Problems Problem Noted Date Diagnosed Date Coronary artery disease invo lving [place] coronary artery of [place] heart without angina pectoris 08/17/2020 Syncope 08/17/2020 NSVT (nonsustained ventricular tachycardia) 08/07 HTN, goal below 140/90 08/17/2020 Hyperlipidemia with target LDL less than 70 08/07 Diabetes mellitus without complication 0 Gastroparesis 01/31/2020 documented as of this encounter (statuses as of 10/18/2024) Social History Tobacco Use Types Packs/Day Years [...] Comments DISCUSS TOBACCO CESSATION (REFER TO SMARTSET #8878) 1961 Depression Screening 1973 HIV Screening 1976 [...] this encounter Medical Devices Implanted Type Area Head Filter Tank Tender Helper Device Identifier Shelf Expiration Date Model / Serial / Lot Duraclip 16mm Xlg Repostn - [id number] Implanted:Qty: 1 on 11/19/2023 by Flaquita De La Garza DO at ENDOSCOPY [facility] [employer] 10/23/2024 [id number] / / [id number] documented as of this encounter Care Teams Office Services Manager Relationship Specialty Start Date End Date Pro, Vu Gaines MD [address] [facility] [place] [address] PCP - General Internal Medicine 10/26/19 documented as of this encounter
--- OUTSIDE RECORDS SUMMARY | 2024-11-10 10:50 | External Medical Summary | Summary of Care ---
Author Name Unknown Organization [facility] Address [address] [place] [address] Phone [phone] Care Team Providers Care Counter Installer Name Role Phone Pro, Vu Gaines MD Primary Care Provider +1- [phone] Reason for Visit * Reason Onset Date Comments Appointment 10/26/2024 Encounter Details Date Type Department Care Team ([facility] st Contact Info) Description 10/26/2024 Telephone [facility] [place] [address] [place] [address] Jun Guardado, JAKE [address] [place], [place] [id number] Appointment Allergies No known active allergiesdocumented as of this encounter (statuses as of 10/26/2024) Medications Aspirin 81 MG Tablet Take 1 [...] 11/28/19 22 Active Vitamin D3 1.25 MG (31649 UT) Oral Capsule Take 1 Capsule by [...] as of this encounter (statuses as of 10/26/2024) Active Problems Problem Noted Date Diagnosed Date Coronary artery disease invo lving [place] coronary artery of [place] heart without angina pectoris 08/17/2020 Syncope 08/17/2020 NSVT (nonsustained ventricular tachycardia) 08/07 HTN, goal below 140/90 08/17/2020 Hyperlipidemia with target LDL less than 70 08/07 Diabetes mellitus without complication 0 Gastroparesis 01/31/2020 documented as of this encounter (statuses as of 10/26/2024) Social History Tobacco Use Types Packs/Day Years [...] encounter Miscellaneous Notes * Telephone Encounter - Jun Guardado OSA - 10/26/2024 8:33 AM EST [facility] #[facility] letter sent [facility] episode closed documented in this encounter Plan of Treatment Scheduled Procedures Name Priority Associated Diagnoses Date/Ti me COLONOSCOPY FLEXIBLE PROXIMAL DIAGNOSTIC Recall History of colonic polyps ESOPHAGOGASTRODUODENOSCOPY ( EGD), FLEXIBLE, TRANSORAL, DIAGNOSTIC Recall Chapman's esophagus Health Maintenance Due Date Last Done Comments DISCUSS TOBACCO CESSATION (REFER TO SMARTSET #9968) 1961 Depression Screening 1973 HIV Screening 1976 [...] this encounter Medical Devices Implanted Type Area Cargo Worker Device Identifier Shelf Expiration Date Model / Serial / Lot Duraclip 16mm Xlg Repostn - [id number] Implanted:Qty: 1 on 11/19/2023 by Flaquita De La Garza DO at ENDOSCOPY [facility] [employer] [facility] 10/23/2024 [id number] / / [id number] documented as of this encounter Care Teams Counter Installer Relationship Specialty Start Date End Date Pro, Vu Gaines MD [address] [place] [facility] [place] [address] PCP - General Internal Medicine 10/26/19 documented as of this encounter
--- OUTSIDE RECORDS SUMMARY | 2024-11-10 10:50 | External Medical Summary | Summary of Care ---
Author Name Unknown Organization [facility] Address [address] [place] [address] Phone [phone] Care Team Providers Care Controller Instructor Name Role Phone Pro, Vu Gaines MD Primary Care Provider +1- [phone] Reason for Visit * Reason Onset Date Comments Appointment 10/25/2024 Encounter Details Date Type Department Care Team ([facility] st Contact Info) Description 10/25/2024 Telephone [facility], [place] [facility] [address] [place] [address] Jun Guardado, JAKE [address] [place], [place] [id number] Appointment (//) Allergies No known active allergiesdocumented as of this encounter (statuses as of 10/25/2024) Medications Aspirin 81 MG Tablet Take 1 [...] 11/28/19 22 Active Vitamin D3 1.25 MG (85741 UT) Oral Capsule Take 1 Capsule by [...] as of this encounter (statuses as of 10/25/2024) Active Problems Problem Noted Date Diagnosed Date Coronary artery disease invo lving [place] coronary artery of [place] heart without angina pectoris 08/17/2020 Syncope 08/17/2020 NSVT (nonsustained ventricular tachycardia) 08/07 HTN, goal below 140/90 08/17/2020 Hyperlipidemia with target LDL less than 70 08/07 Diabetes mellitus without complication 0 Gastroparesis 01/31/2020 documented as of this encounter (statuses as of 10/25/2024) Social History Tobacco Use Types Packs/Day Years [...] Telephone Encounter - Jun Guardado OSA - 10/25/2024 9:45 AM EST 10[facility] Looking at melanie 10/25 documented in this encounter Plan of Treatment Scheduled Procedures Name Priority Associated Diagnoses Date/Ti me COLONOSCOPY FLEXIBLE PROXIMAL DIAGNOSTIC Recall History of colonic polyps ESOPHAGOGASTRODUODENOSCOPY ( EGD), FLEXIBLE, TRANSORAL, DIAGNOSTIC Recall Chapman's esophagus Health Maintenance Due Date Last Done Comments DISCUSS TOBACCO CESSATION (REFER TO SMARTSET #6982) 1961 Depression Screening 1973 HIV Screening 1976 [...] this encounter Medical Devices Implanted Type Area Shield Operator Device Identifier Shelf Expiration Date Model / Serial / Lot Duraclip 16mm Xlg Repostn - [id number] Implanted:Qty: 1 on 11/19/2023 by Flaquita De La Garza DO at ENDOSCOPY [facility] [employer] [facility] 10/23/2024 [id number] / / [id number] documented as of this encounter Care Teams Controller Instructor Relationship Specialty Start Date End Date Pro, Vu Gaines MD [address] [place] [facility] [place] [address] PCP - General Internal Medicine 10/26/19 documented as of this encounter
--- OUTSIDE RECORDS SUMMARY | 2024-11-10 10:50 | External Medical Summary | Summary of Care ---
Author Name Unknown Organization [facility] Address [address] [place] [address] Phone [phone] Care Team Providers Care Panama Hat Hydraulic Press Operator Name Role Phone Pro, Vu Gaines MD Primary Care Provider +1- [phone] Reason for Visit * Reason Onset Date Comments Appointment 10/24/2024 Encounter Details Date Type Department Care Team ([facility] st Contact Info) Description 10/24/2024 Telephone [facility], [place] [facility] [address] [place] [address] Jun Guardado, JAKE [address] [place], [place] [id number] Appointment (//) Allergies No known active allergiesdocumented as of this encounter (statuses as of 10/24/2024) Medications Aspirin 81 MG Tablet Take 1 [...] 11/28/19 22 Active Vitamin D3 1.25 MG (54885 UT) Oral Capsule Take 1 Capsule by [...] as of this encounter (statuses as of 10/24/2024) Active Problems Problem Noted Date Diagnosed Date Coronary artery disease invo lving [place] coronary artery of [place] heart without angina pectoris 08/17/2020 Syncope 08/17/2020 NSVT (nonsustained ventricular tachycardia) 08/07 HTN, goal below 140/90 08/17/2020 Hyperlipidemia with target LDL less than 70 08/07 Diabetes mellitus without complication 0 Gastroparesis 01/31/2020 documented as of this encounter (statuses as of 10/24/2024) Social History Tobacco Use Types Packs/Day Years [...] Telephone Encounter - Jun Guardado OSA - 10/24/2024 9:43 AM EST 10/24-[facility] Looking at melanie 10/25 documented in this encounter Plan of Treatment Scheduled Procedures Name Priority Associated Diagnoses Date/Ti me COLONOSCOPY FLEXIBLE PROXIMAL DIAGNOSTIC Recall History of colonic polyps ESOPHAGOGASTRODUODENOSCOPY ( EGD), FLEXIBLE, TRANSORAL, DIAGNOSTIC Recall Chapman's esophagus Health Maintenance Due Date Last Done Comments DISCUSS TOBACCO CESSATION (REFER TO SMARTSET #2908) 1961 Depression Screening 1973 HIV Screening 1976 [...] this encounter Medical Devices Implanted Type Area Resource Paraprofessional Device Identifier Shelf Expiration Date Model / Serial / Lot Duraclip 16mm Xlg Repostn - [id number] Implanted:Qty: 1 on 11/19/2023 by Flaquita De La Garza DO at ENDOSCOPY [facility] [employer] [facility] 10/23/2024 [id number] / / [id number] documented as of this encounter Care Teams Panama Hat Hydraulic Press Operator Relationship Specialty Start Date End Date Pro, Vu Gaines MD [address] [place] [address] PCP - General Internal Medicine 10/26/19 documented as of this encounter
--- OUTSIDE RECORDS SUMMARY | 2024-11-10 10:50 | External Medical Summary | Summary of Care ---
Author Name Unknown Organization [facility] Address [address] [place] [address] Phone [phone] Care Team Providers Care Home Coordinator Name Role Phone Pro, Vu Gaines MD Primary Care Provider +1- [phone] Reason for Visit * Reason Onset Date Comments [facility]: Maintenance 10/21/2024 Encounter Details Date Type Department Care Team (Late st Contact Info) Description 10/21/2024 Telephone [facility] [address] [facility] [address] Courtney Olvera, IRAJ [address] [place] [facility] [place] [address] [facility]: Maintenance Allergies No known active allergiesdocumented as of this encounter (statuses as of 10/21/2024) Medications Aspirin 81 MG Tablet Take 1 [...] 11/28/19 22 Active Vitamin D3 1.25 MG (86797 UT) Oral Capsule Take 1 Capsule by [...] as of this encounter (statuses as of 10/21/2024) Active Problems Problem Noted Date Diagnosed Date Coronary artery disease invo lving [place] coronary artery of [place] heart without angina pectoris 08/17/2020 Syncope 08/17/2020 NSVT (nonsustained ventricular tachycardia) 08/07 HTN, goal below 140/90 08/17/2020 Hyperlipidemia with target LDL less than 70 08/07 Diabetes mellitus without complication 0 Gastroparesis 01/31/2020 documented as of this encounter (statuses as of 10/21/2024) Social History Tobacco Use Types Packs/Day Years [...] encounter Miscellaneous Notes * Telephone Encounter - Courtney Olvera LPN - 10/21/2024 1:39 PM EST Shane Jones was referred as a potential candidate for enrollment for [facility]. A review of this chart was completed and: Shane meets criteria for [facility]. Jump to Initiation Referring care team was notified via : [email or web address] communication Currently in pt at [facility], will follow for DC documented in this encounter Plan of Treatment Scheduled Procedures Name Priority Associated Diagnoses Date/Ti me COLONOSCOPY FLEXIBLE PROXIMAL DIAGNOSTIC Recall History of colonic polyps ESOPHAGOGASTRODUODENOSCOPY ( EGD), FLEXIBLE, TRANSORAL, DIAGNOSTIC Recall Chapman's esophagus Health Maintenance Due Date Last Done Comments DISCUSS TOBACCO CESSATION (REFER TO SMARTSET #0231) 1961 Depression Screening 1973 HIV Screening 1976 [...] this encounter Medical Devices Implanted Type Area Supervisor Film Processing Device Identifier Shelf Expiration Date Model / Serial / Lot Duraclip 16mm Xlg Repostn - [id number] Implanted:Qty: 1 on 11/19/2023 by Flaquita De La Garza DO at ENDOSCOPY [facility] [employer] 10/23/2024 [id number] / / [id number] documented as of this encounter Care Teams Home Coordinator Relationship Specialty Start Date End Date Pro, Vu Gaines MD [address] [place] [address] PCP - General Internal Medicine 10/26/19 documented as of this encounter
--- NOTE | 2024-11-10 11:28 | Nephrology Consultation ---
Date of Consultation November 10, 2024 Assessment & Plan (1) End stage chronic kidney disease: * ESKD-D due to HRS, CRS * Outpatient HD Rx: TTS 4hr 2K 2.5Ca 1Mg [id number] Na 135 F-180NR EDW 72kg R IJ TCC * Unable to provide HD today due to ascites w/ severe R hydrothorax * Will reassess for HD tomorrow * Monitor BMP (2) Ascites: * Case discussed w/ hospitalist service this am. Will send for paracentesis by [facility] * Patient will likely require scheduled paracentesis as outpatient * Poor prognosis. Patient is dialysis dependent w/ recurrent ascites and severe R hydrothorax. Consider consultation w/ palliative care to discuss goals of care (3) Pleural effusion: * Hydrothorax. Expect this will improve following paracentesis (4) COPD (chronic obstructive pulmonary disease): History of Present Illness Reason for Consultation: ESKD-D Attending Physician: Nash Sams MD History of Present Illness Mr. Jones is a 64-year-old white male who is seen at the request of the [facility] hospitalist service to provide inpatient HD and assist w/ medical management. Information for the HPI is obtained from direct patient interview and review of the EMR. HPI summarized as follows: Mr. Jones has ESKD due to HRS, diabetic nephropathy. He dialyzes at [facility] under the care of Dr. Sandhu (TTS 4HR 2K 2.5Ca 1Mg [id number] Na 135 F-180NR EDW 72kg R IJ TCC). His medical history is significant for AODM complicated by retinopathy, hepatic cirrhosis w/ ascites and chronic R hydrothorax, hepatitis C+, chronic tobacco use w/ COPD, hyperlipidemia and Chapman's esophagus. Mr. Jones last dialyzed 11/08/24 in [place] without complication. He presented to the [facility] this morning w/ complaints of dyspnea. CXR revealed a large R pleural effusion w/ near total collapse of R lung. O2 was applied and patient brought up for dialysis w/ UF. Within 15 min of starting HD Mr. Jones complained of worsening HD and asked to be taken off. Events of dialysis were discussed w/ hospitalist service (Dr. Sams). Arrangements have been made for paracentesis this am by [facility]. Allergies Allergy/AdvReac Type Severity Reaction Status Date / Time No Known Allergies Allergy Verified 10/18/24 09:29 Home Medications Medication Instructions Recorded Confirmed Type aspirin 81 mg tablet,delayed 81 mg PO DAILY 06/16/20 11/10/24 History release carvedilol 6.25 mg tablet 6.25 mg PO BID #60 tabs 11/13/23 11/10/24 Rx albuterol sulfate 90 mcg/actuation 1 puff inhalation Q4H PRN 06/02/24 11/10/24 Rx aerosol inhaler shortness of breath or wheezing #18 grams amlodipine 5 mg tablet 10 mg (2 x 5 mg) PO DAILY #180 tabs 06/02/24 11/10/24 Rx atorvastatin 40 mg tablet 40 mg PO DAILY #90 tabs 06/02/24 11/10/24 Rx blood sugar diagnostic (OneTouch #400 ea 06/02/24 Rx Verio test strips) insulin aspart U-100 100 unit/mL See Rx Instructions .Route 06/02/24 11/10/24 Rx (3 mL) subcutaneous pen (Novolog .COMPLEX #15 mL FlexPen U-100 Insulin aspart) lancets 33 gauge #400 ea 06/02/24 Rx lisinopril 40 mg tablet 40 mg PO DAILY #90 tabs 06/02/24 11/10/24 Rx omeprazole 20 mg capsule,delayed 20 mg PO DAILY #90 caps 06/02/24 11/10/24 Rx release pen needle, diabetic 32 gauge x #500 ea 06/02/24 Rx 5/32" (BD Ultra-Fine Olivia Pen Needle) triamcinolone acetonide 0.1 % 1 applic topical BID PRN Skin 06/02/24 11/10/24 Rx topical cream Irritation #80 grams furosemide 40 mg tablet (Lasix) 120 mg (3 x 40 mg) PO BID 30 days 10/23/24 11/10/24 Rx #180 tabs hydroxyzine HCl 25 mg tablet 25 mg PO TID PRN anxiety #30 tabs 10/23/24 11/10/24 Rx insulin glargine 100 unit/mL 20 unit (0.2 mL) SC HS 30 days #6 10/23/24 11/10/24 Rx subcutaneous solution (Lantus mL U-100 Insulin) vitamin B complex and vitamin C 1 cap PO QAM #30 caps 10/23/24 11/10/24 Rx no.20-folic acid 1 mg capsule (Renal Caps) calcium acetate(phosphat bind) 667 667 mg PO TIDWMEAL 11/10/24 11/10/24 History mg capsule metoclopramide HCl 5 mg tablet 5 mg PO BID 11/10/24 11/10/24 History midodrine 5 mg tablet 5 mg PO 3XWK 11/10/24 11/10/24 History Patient History Medical History Acute kidney injury Type 2 diabetes mellitus Surgical History No pertinent past surgical history Family History Grandfather Colon cancer Mother Leukemia Father Diabetes Hypertension Myocardial infarction Grandfather Colon cancer Denies family history of Ovarian cancer Prostate cancer Breast cancer Social History Smoking Status: Current every day smoker Tobacco Type: Cigarettes Age Started Using Tobacco: 17; packs per day: 1; Cigarettes Per Day: 1 pack per day; Second Hand Exposure: No; Do You Dip or Chew Tobacco: No; Hx Alcohol Use: Yes Hx Substance Use: No Preferred Language: Marshallese Communication Ability: Effective Laundry Pricing Clerk Required: No Beliefs That Will Affect Care: None marital status: Current Living Situation: Spouse current occupational status: unemployed Feels Safe at Home: Yes Childhood Exposure to Second-Hand Smoke: Yes Dental Care, Regularly: No Physical Activity Frequency: Does not Exercise Seatbelt Use: always Sunscreen Use: No Assistive Devices: None Review of Systems Constitutional: no fever Eyes: no problem reported Ear, Nose, Mouth, Throat: no problem reported Respiratory: + dyspnea Cardiovascular: no chest pain Gastrointestinal: + bloating Physical Exam Constitutional: + ill appearing Eyes: PERRL, conjunctivae normal, anicteric sclerae ENMT: external ear and nose normal, oropharynx normal Neck: trachea midline, no thyromegaly Respiratory: normal respiratory effort Auscultation: + breath sounds absent (R side) Cardiovascular: Rate/Rhythm: regular rate and regular rhythm Extremities: + edema (2+ LE swelling) Gastrointestinal (Abdomen): Inspection/Auscultation: + abdomen distended Percussion/Palpation: + ascites Neurologic: awake Results & Data Vital Signs (Past 12 Hours) Vital Signs Temp Pulse Pulse Resp BP BP Pulse Ox 11/10/24 09:19 85 18 152/95 H 96 11/10/24 06:30 85 23 97 11/10/24 06:28 97 11/10/24 06:23 88 11/10/24 06:22 96 11/10/24 06:03 36.6 C 91 H 18 147/78 H 95 O2 Del Method 11/10/24 09:19 Room Air 11/10/24 06:30 Room Air 11/10/24 06:28 Room Air 11/10/24 06:23 11/10/24 06:22 Room Air 11/10/24 06:03 Room Air Laboratory Results Laboratory Results - last 24 hr 11/10/24 11/10/24 06:17 06:23 WBC 7.62 RBC 2.91 L Hgb 8.9 L Hct 26.9 L MCV 92.4 MCH 30.6 MCHC 33.1 RDW Std Deviation 57.3 H RDW Coeff of Ca 17.0 H Plt Count 147 MPV 9.3 L Immature Gran % (Auto) 0.5 Neut % (Auto) 63.2 Lymph % (Auto) 21.4 Shannon % (Auto) 8.3 Eos % (Auto) 5.6 Baso % (Auto) 1.0 Neut # (Auto) 4.81 Lymph # (Auto) 1.63 Shannon # (Auto) 0.63 H Eos # (Auto) 0.43 Baso # (Auto) 0.08 Immature Gran # (Auto) 0.04 PT 11.8 INR 1.1 Sodium 143 Potassium 3.7 Chloride 104 Carbon Dioxide 33 H Anion Gap 6 BUN 40 H Creatinine 3.89 H Est Cr Clr Drug Dosing 17.5 eGFR 16.57 BUN/Creatinine Ratio 10.3 Glucose 124 H Calcium 7.1 L Magnesium 1.7 Total Bilirubin 0.7 AST 29 ALT 16 Alkaline Phosphatase 290 H Troponin I High Sens 18.5 B-Natriuretic Peptide 382 H Total Protein 7.1 Albumin 2.6 L Globulin 4.5 H Albumin/Globulin Ratio 0.6 L Adenovirus (PCR) Not Detected B. pertussis DNA (PCR) Not Detected B.parapertussis DNA PCR Not Detected C. pneumoniae DNA (PCR) Not Detected Coronavirus OC43 (PCR) Not Detected Coronavirus HKU1 (PCR) Not Detected Coronavirus 229E (PCR) Not Detected SARS-CoV-2 (PCR) Not Detected Coronavirus NL63 (PCR) Not Detected Human Metapneumovir PCR Not Detected Influenza Type A (PCR) Not Detected Influenza Type B (PCR) Not Detected M. pneumoniae (PCR) Not Detected Parainfluenza 1 (PCR) Not Detected Parainfluenza 2 (PCR) Not Detected Parainfluenza 3 (PCR) Not Detected Parainfluenza 4 (PCR) Not Detected RSV (PCR) Not Detected Entero/Rhino (PCR) Not Detected PG Care Time/CCT Total # of Minutes Spent Total Time Spent with Patient: Total time spent is greater than 50% in coordination of care (as documented) at patient's floor/unit and/or counseling patient: Coding Level of Care Code 79476 IN/OBS CONSULT LVL 5,80M Diagnoses End stage chronic kidney disease N18.6 Ascites R18.8 Pleural effusion J90 COPD (chronic obstructive pulmonary disease) J44.9
--- NOTE | 2024-11-10 11:33 | Dialysis Progress Note ---
Date of Service November 10, 2024 Assessment & Plan (1) End stage chronic kidney disease: (2) Shortness of breath: (3) Pleural effusion, right: (4) Ascites: (5) COPD (chronic obstructive pulmonary disease): Plan HD stopped at patient's request. He was hemodynamically stable. [id number] Suspect dyspnea on the basis of severe R hydrothorax from worsening/recurrent ascites. Primary service notified. Paracentesis has been arranged by [facility] this am. Will reassess need for HD again in am Admission and Anticipated Discharge Date Admission Date: November 10, 2024 Subjective Mr. Jones was evaluated while on HD this morning. Approximately 15 min into treatment he c/o worsening dyspnea and asked to stop dialysis. He denied angina. Review of Systems Respiratory: + dyspnea Physical Exam Constitutional: + ill appearing Eyes: PERRL, conjunctivae normal, anicteric sclerae ENMT: external ear and nose normal, oropharynx normal Neck: trachea midline, no thyromegaly Respiratory: normal respiratory effort Auscultation: + breath sounds absent (R side) Cardiovascular: Rate/Rhythm: regular rate and regular rhythm Extremities: + edema (2+ LE swelling) Gastrointestinal (Abdomen): Inspection/Auscultation: + abdomen distended Percussion/Palpation: + ascites Neurologic: awake Results & Data Vital Signs (Past 12 Hours) Vital Signs Temp Pulse Pulse Resp BP BP Pulse Ox 11/10/24 09:19 85 18 152/95 H 96 11/10/24 06:30 85 23 97 11/10/24 06:28 97 11/10/24 06:23 88 11/10/24 06:22 96 11/10/24 06:03 36.6 C 91 H 18 147/78 H 95 O2 Del Method 11/10/24 09:19 Room Air 11/10/24 06:30 Room Air 11/10/24 06:28 Room Air 11/10/24 06:23 11/10/24 06:22 Room Air 11/10/24 06:03 Room Air MNPG Procedure Codes (Charges) Renal/Urologic Renal/Urologic: 16167 Hemodialysis, One Evaluation Coding Level of Care Code None Diagnoses End stage chronic kidney disease N18.6 Shortness of breath R06.02 Pleural effusion, right J90 Ascites R18.8 Ascites type: other type COPD (chronic obstructive pulmonary disease) J44.9 CPT Codes Renal/Urologic - Renal/Urologic: 67452 Hemodialysis, One Evaluation ([id number]) (4) Ascites Ascites type: other type Qualified Code(s): R18.8 - Other ascites
[2024-11-10] MEDS: HEPARIN SOD (PORCINE) 1000 UNIT/ML IV ONE (13:26)
[2024-11-10] MEDS: HEPARIN SOD (PORCINE) 1000 UNIT/ML IV SCH (13:26)
--- NOTE | 2024-11-10 13:29 | Ultrasound Report ---
ULTRASOUND-GUIDED PARACENTESIS CLINICAL HISTORY: Ascites PROCEDURE: Procedure and risks were explained. Informed consent was obtained. A final timeout was com pleted. The abdomen was prepped and draped in sterile fashion. 1% lidocaine was utilized for skin ane sthesia. Utilizing ultrasound guidance, a 5 Sami safety centesis catheter was advanced into the left lower q uadrant pocket of ascites. Ultrasound images were obtained. A total of 6 L of ascites fluid was remov ed, with 1 L sent to the lab. The catheter was removed and Band-Aid applied. The patient tolerated th e procedure well. Vital signs will be monitored postprocedure. IMPRESSION: Ultrasound-guided paracentesis as above. Performed, dictated, and signed by Drew Cee PA-C; to be co-signed by Dr. Kevin Barriga. Electronically signed by: Kevin Barriga M.D. 11/10/2024 1:44 PM
[2024-11-10] MEDS: INSULIN ASPART PER UNIT CHARGE SC SCH (13:34)
[2024-11-10] MEDS: EPOETIN ALFA 10,000 UNITS/ML VIAL IV ONE (15:26)
[2024-11-10] MEDS: MIDODRINE HCL 2.5 MG TAB PO SCH (15:28)
[2024-11-10] MEDS: CALCIUM ACETATE 667 MG CAP/TAB PO SCH (15:29)
[2024-11-10] MEDS: PANTOprazole 40 MG TAB PO SCH (16:26)
[2024-11-10] MEDS: FUROSEMIDE 40 MG TAB PO SCH (17:48)
[2024-11-10] MEDS: METOCLOPRAMIDE HCL 5 MG TABLET PO SCH (17:48)
[2024-11-10] MEDS: LANTUS PER UNIT CHARGE SQ SCH (21:24)
[2024-11-10] MEDS: ACETAMINOPHEN 325 MG TAB PO PRN (21:24)
[2024-11-11 08:03] LABS: Basophils # (auto) 0.04 K/uL (0.00-0.20); Basophils % (auto) 0.7 %; Eosinophils # (auto) 0.35 K/uL (0.00-0.50); Eosinophils % (auto) 5.9 %; Hemoglobin 8.6 g/dl (14.0-18.0); Immature Granulocytes # (auto) 0.03 K/uL (0.01-0.20); Immature Granulocytes % (auto) 0.5 %; Lymphocytes # (auto) 1.25 K/uL (1.20-3.40); Mean Corpuscular Hemoglobin 30.2 pg (25.0-34.0); Mean Corpuscular Hgb Conc 33.1 g/dL (32.0-36.0); Mean Corpuscular Volume 91.2 fL (80.0-100.0); Mean Platelet Volume 8.8 fL (9.4-12.4); Monocytes # (auto) 0.51 K/uL (0.11-0.59); Monocytes % (auto) 8.6 %; Neutrophils # (auto) 3.76 K/uL (1.40-6.50); Neutrophils % (auto) 63.3 %; Platelet Count 104 K/uL (130-400); RDW Coefficient of Variation 16.6 % (11.5-14.5); RDW Standard Deviation 55.1 fL (36.4-46.3); Red Blood Count 2.85 M/uL (4.70-6.10); White Blood Count 5.94 K/ul (4.8-10.8)
[2024-11-11 08:35] LABS: Albumin Globulin Ratio 0.6 (0.9-2); Albumin Level 2.2 gm/dl (3.4-5.0); BUN Creatinine Ratio 10.2 (10-20); Bilirubin,Total 0.7 mg/dl (0.2-1.0); Calcium 6.9 mg/dl (8.6-10.3); Creatinine Clr Calc Pharmacy 14.5 ml/min; Globulin 3.8 gm/dl (2.5-4.0); Magnesium 1.6 mg/dl (1.7-2.4); Potassium 3.9 mmol/L (3.5-5.1)
--- NOTE | 2024-11-11 09:10 | Nephrology Progress Note ---
Date of Service November 11, 2024 Assessment & Plan (1) End stage chronic kidney disease: Plan: * ESKD-D due to HRS, CRS * Outpatient HD Rx: TTS 4hr 2K 2.5Ca 1Mg [id number] Na 135 F-180NR EDW 72kg R IJ TCC * Will provide HD today and attempt UF. Orders placed in EMR and HD RN notified * Monitor BMP (2) Ascites: Plan: * Poor prognosis. Patient is dialysis dependent w/ recurrent ascites and severe R hydrothorax. In order to avoid further hospitalization he will require regular scheduled paracentesis and would benefit from pleurodesis. Consider consultation w/ GI and pulmonology or consult palliative care to discuss goals of care (3) Pleural effusion, right: Plan: * Hydrothorax. Question whether patient would benefit from pleurodesis (4) COPD (chronic obstructive pulmonary disease): Admission and Anticipated Discharge Date Admission Date: November 10, 2024 Subjective Mr. Jones was evaluated in his hospital room this morning. His breathing is markedly improved following 6 L paracentesis yesterday. He denies abdominal pain Review of Systems Constitutional: no fever Eyes: no problem reported Ear, Nose, Mouth, Throat: no problem reported Respiratory: no dyspnea Cardiovascular: no chest pain Gastrointestinal: + bloating Physical Exam Constitutional: + ill appearing Eyes: PERRL, conjunctivae normal, anicteric sclerae ENMT: external ear and nose normal, oropharynx normal Neck: trachea midline, no thyromegaly Respiratory: normal respiratory effort Auscultation: + breath sounds absent (R side) Cardiovascular: Rate/Rhythm: regular rate and regular rhythm Extremities: + edema (2+ LE swelling) Gastrointestinal (Abdomen): Inspection/Auscultation: + abdomen distended Percussion/Palpation: + ascites Neurologic: awake Results & Data Vital Signs (Past 12 Hours) Vital Signs Temp Pulse Pulse Pulse Resp BP Pulse Ox 11/11/24 07:48 36.7 C 88 16 148/90 H 93 11/11/24 07:23 84 11/11/24 03:20 36.5 C 84 18 137/82 94 11/11/24 00:00 99 H 11/11/24 00:00 36.6 C 96 H 18 132/73 93 O2 Del Method 11/11/24 07:48 Room Air 11/11/24 07:23 11/11/24 03:20 Room Air 03/07/25 00:00 11/11/24 00:00 Room Air Diagnostic Findings Laboratory Results - last 24 hr 11/10/24 11/10/24 11/10/24 13:17 13:55 17:31 WBC RBC Hgb Hct MCV MCH MCHC RDW Std Deviation RDW Coeff of Ca Plt Count MPV Immature Gran % (Auto) Neut % (Auto) Lymph % (Auto) [place] % (Auto) Eos % (Auto) Baso % (Auto) Neut # (Auto) Lymph # (Auto) [place] # (Auto) Eos # (Auto) Baso # (Auto) Immature Gran # (Auto) Sodium Potassium Chloride Carbon Dioxide Anion Gap BUN Creatinine Est Cr Clr Drug Dosing eGFR BUN/Creatinine Ratio Glucose POC Glucose 141 H 153 H Calcium Magnesium Total Bilirubin AST ALT Alkaline Phosphatase Total Protein Albumin Globulin Albumin/Globulin Ratio Nasal Screen MRSA (PCR) Negative 11/10/24 11/11/24 11/11/24 20:25 07:38 08:11 WBC 5.94 RBC 2.85 L Hgb 8.6 L Hct 26.0 L MCV 91.2 MCH 30.2 MCHC 33.1 RDW Std Deviation 55.1 H RDW Coeff of Ca 16.6 H Plt Count 104 L MPV 8.8 L Immature Gran % (Auto) 0.5 Neut % (Auto) 63.3 Lymph % (Auto) 21.0 [place] % (Auto) 8.6 Eos % (Auto) 5.9 Baso % (Auto) 0.7 Neut # (Auto) 3.76 Lymph # (Auto) 1.25 [place] # (Auto) 0.51 Eos # (Auto) 0.35 Baso # (Auto) 0.04 Immature Gran # (Auto) 0.03 Sodium 142 Potassium 3.9 Chloride 106 Carbon Dioxide 30 Anion Gap 6 BUN 48 H Creatinine 4.69 H* D Est Cr Clr Drug Dosing 14.5 eGFR 13.24 BUN/Creatinine Ratio 10.2 Glucose 84 POC Glucose 175 H 86 Calcium 6.9 L Magnesium 1.6 L Total Bilirubin 0.7 AST 22 ALT 12 Alkaline Phosphatase 246 H Total Protein 6.0 Albumin 2.2 L Globulin 3.8 Albumin/Globulin Ratio 0.6 L Nasal Screen MRSA (PCR) Laboratory Results WBC 5.94 K/ul (4.8-10.8) 11/11/24 07:38 RBC 2.85 M/uL (4.70-6.10) L 11/11/24 07:38 Hgb 8.6 g/dl (14.0-18.0) L 11/11/24 07:38 Hct 26.0 % (42.0-52.0) L 11/11/24 07:38 MCV 91.2 fL (80.0-100.0) 11/11/24 07:38 MCH 30.2 pg (25.0-34.0) 11/11/24 07:38 MCHC 33.1 g/dL (32.0-36.0) 11/11/24 07:38 RDW Std Deviation 55.1 fL (36.4-46.3) H 11/11/24 07:38 RDW Coeff of Ca 16.6 % (11.5-14.5) H 11/11/24 07:38 Plt Count 104 K/uL (130-400) L 11/11/24 07:38 MPV 8.8 fL (9.4-12.4) L 11/11/24 07:38 Immature Gran % (Auto) 0.5 % 11/11/24 07:38 Neut % (Auto) 63.3 % 11/11/24 07:38 Lymph % (Auto) 21.0 % 11/11/24 07:38 [place] % (Auto) 8.6 % 11/11/24 07:38 Eos % (Auto) 5.9 % 11/11/24 07:38 Baso % (Auto) 0.7 % 11/11/24 07:38 Neut # (Auto) 3.76 K/uL (1.40-6.50) 11/11/24 07:38 Lymph # (Auto) 1.25 K/uL (1.20-3.40) 11/11/24 07:38 [place] # (Auto) 0.51 K/uL (0.11-0.59) 11/11/24 07:38 Eos # (Auto) 0.35 K/uL (0.00-0.50) 11/11/24 07:38 Baso # (Auto) 0.04 K/uL (0.00-0.20) 11/11/24 07:38 Immature Gran # (Auto) 0.03 K/uL (0.01-0.20) 11/11/24 07:38 PT 11.8 Seconds (9.0-12.0) 11/10/24 06:17 INR 1.1 (0.9-1.1) 11/10/24 06:17 Sodium 142 mmol/L (136-145) 11/11/24 07:38 Potassium 3.9 mmol/L (3.5-5.1) 11/11/24 07:38 Chloride 106 mmol/L (98-107) 11/11/24 07:38 Carbon Dioxide 30 mmol/L (21-32) 11/11/24 07:38 Anion Gap 6 (3-11) 11/11/24 07:38 BUN 48 mg/dl (6-23) H 11/11/24 07:38 Creatinine 4.69 mg/dl (0.6-1.4) H* D 11/11/24 07:38 Est Cr Clr Drug Dosing 14.5 ml/min 11/11/24 07:38 eGFR 13.24 11/11/24 07:38 BUN/Creatinine Ratio 10.2 (10-20) 11/11/24 07:38 Glucose 84 mg/dl (70-99(Fasting)) 11/11/24 07:38 POC Glucose 86 mg/dl (70-99) 11/11/24 08:11 Calcium 6.9 mg/dl (8.6-10.3) L 11/11/24 07:38 Magnesium 1.6 mg/dl (1.7-2.4) L 11/11/24 07:38 Total Bilirubin 0.7 mg/dl (0.2-1.0) 11/11/24 07:38 AST 22 U/L (13-39) 11/11/24 07:38 ALT 12 U/L (7-52) 11/11/24 07:38 Alkaline Phosphatase 246 U/L (34-104) H 11/11/24 07:38 Troponin I High Sens 18.5 pg/ml (0-20) 11/10/24 06:17 B-Natriuretic Peptide 382 pg/ml (0-100) H 11/10/24 06:17 Total Protein 6.0 gm/dl (6.0-8.3) 11/11/24 07:38 Albumin 2.2 gm/dl (3.4-5.0) L 11/11/24 07:38 Globulin 3.8 gm/dl (2.5-4.0) 11/11/24 07:38 Albumin/Globulin Ratio 0.6 (0.9-2) L 11/11/24 07:38 Nasal Screen MRSA (PCR) Negative (Negative) 11/10/24 13:55 Adenovirus (PCR) Not Detected (NotDetected) 11/10/24 06:23 B. pertussis DNA (PCR) Not Detected (NotDetected) 11/10/24 06:23 B.parapertussis DNA PCR Not Detected (NotDetected) 11/10/24 06:23 C. pneumoniae DNA (PCR) Not Detected (NotDetected) 11/10/24 06:23 Coronavirus OC43 (PCR) Not Detected (NotDetected) 11/10/24 06:23 Coronavirus HKU1 (PCR) Not Detected (NotDetected) 11/10/24 06:23 Coronavirus 229E (PCR) Not Detected (NotDetected) 11/10/24 06:23 SARS-CoV-2 (PCR) Not Detected (NotDetected) 11/10/24 06:23 Coronavirus NL63 (PCR) Not Detected (NotDetected) 11/10/24 06:23 Human Metapneumovir PCR Not Detected (NotDetected) 11/10/24 06:23 Influenza Type A (PCR) Not Detected (NotDetected) 11/10/24 06:23 Influenza Type B (PCR) Not Detected (NotDetected) 11/10/24 06:23 M. pneumoniae (PCR) Not Detected (NotDetected) 11/10/24 06:23 Parainfluenza 1 (PCR) Not Detected (NotDetected) 11/10/24 06:23 Parainfluenza 2 (PCR) Not Detected (NotDetected) 11/10/24 06:23 Parainfluenza 3 (PCR) Not Detected (NotDetected) 11/10/24 06:23 Parainfluenza 4 (PCR) Not Detected (NotDetected) 11/10/24 06:23 RSV (PCR) Not Detected (NotDetected) 11/10/24 06:23 Entero/Rhino (PCR) Not Detected (NotDetected) 11/10/24 06:23 Impressions Paracentesis Ultrasound 11/10/24 11:00 ULTRASOUND-GUIDED PARACENTESIS CLINICAL HISTORY: Ascites PROCEDURE: Procedure and risks were explained. Informed consent was obtained. A final timeout was completed. The abdomen was prepped and draped in sterile fashion. 1% lidocaine was utilized for skin anesthesia. Utilizing ultrasound guidance, a 5 [place] safety centesis catheter was advanced into the left lower quadrant pocket of ascites. Ultrasound images were obtained. A total of 6 L of ascites fluid was removed, with 1 L sent to the lab. The catheter was removed and Band-Aid applied. The patient tolerated the procedure well. Vital signs will be monitored postprocedure. IMPRESSION: Ultrasound-guided paracentesis as above. Performed, dictated, and signed by Drew Cee PA-C; to be co-signed by Dr. Kevin Barriga. Electronically signed by: Kevin Barriga M.D. 11/10/2024 1:44 PM Chest X-Ray 11/11/24 09:09 XR chest 1V portable CLINICAL HISTORY: R effusion COMPARISON STUDY: 11/10/2024 FINDINGS: Stable pacemaker and right dialysis catheter. Stable numerous metallic foreign bodies at the left upper chest. Heart size and pulmonary vasculature are normal. There is a large right pleural effusion and associated consolidation at the right mid and lower lung. No pneumothorax. IMPRESSION: Stable exam. ACT 112: Negative or not required by law. Electronically signed by: Benjamin Chapa M.D. 11/11/2024 9:45 AM PG Care Time/CCT Total # of Minutes Spent Total Time Spent with Patient: Total time spent is greater than 50% in coordination of care (as documented) at patient's floor/unit and/or counseling patient: Coding Level of Care Code 33090 SUB INP/OBS CARE 3/50MIN Diagnoses End stage chronic kidney disease N18.6 Ascites R18.8 Ascites type: other type Pleural effusion, right J90 COPD (chronic obstructive pulmonary disease) J44.9 (2) Ascites Ascites type: other type Qualified Code(s): R18.8 - Other ascites
[2024-11-11] MEDS: ATORVASTATIN 40 MG TAB PO SCH (09:32)
[2024-11-11] MEDS: ASPIRIN 81 MG ECTAB PO SCH (09:33)
--- NOTE | 2024-11-11 09:46 | XRay Report ---
XR chest 1V portable CLINICAL HISTORY: R effusion COMPARISON STUDY: 11/10/2024 FINDINGS: Stable pacemaker and right dialysis catheter. Stable numerous metallic foreign bodies at th e left upper chest. Heart size and pulmonary vasculature are normal. There is a large right pleural e ffusion and associated consolidation at the right mid and lower lung. No pneumothorax. IMPRESSION: Stable exam. ACT 112: Negative or not required by law. Electronically signed by: Benjamin Chapa M.D. 11/11/2024 9:45 AM
--- NOTE | 2024-11-11 10:05 | Hospitalist Progress Note ---
Date of Service November 11, 2024 Assessment & Plan (1) Shortness of breath: Plan: -resolved -s/p paracentesis yesterday with 6L removed. (2) Ascites: Plan: -resolved s/p paracentesis (3) Pleural effusion, right: Plan: Still has significant right pleural effusion although this appears unchanged following thoracentesis last admission (4) Hepatitis C: (5) End stage chronic kidney disease: Plan: Management per nephrology, consulted (6) Pleural effusion: Plan: Still has significant right pleural effusion although this appears unchanged following thoracentesis last admission I suspect this is lower likelihood of causing his acute shortness of breath More likely due to abdominal distension with ascites - plan for paracentesis on non dialysis day (tomorrow), this will likely need to be set up routinely as outpatient unless he undergoes TIPS procedure in the future If still significantly short of breath following paracentesis could consider repeat thoracentesis (7) HTN (hypertension): Plan: Patient not taking any regular anti-hypertensives despite given last admission and on medication list and given hypotension last admission will avoid restarting them currently other than his furosemide to help with fluid status in between dialysis sessions Plan 64 year old male with ESRD on dialysis and liver cirrhosis presents to the ER with worsening abdominal distension causing shortness of breath -plan to d/c after HD, possibly tmw 11/12 Admission and Anticipated Discharge Date Admission Date: November 10, 2024 Subjective Pt feeling much better after paracentesis yesterday. Review of Systems Review of Systems: CONST: Negative for fever, body aches and chills. HENT: Negative for neck pain/stiffness, headache, congestion, sore throat, swelling. EYES: Negative for discharge/pain or vision changes. RESP: Negative for cough/hemoptysis and shortness of breath. CV: Negative chest pain, difficulty breathing, palpitations. ABD: Negative pain, nausea, vomiting. : Negative increase frequency, dysuria, blood in urine or stool. MUSC: Negative for muscle aches, edema. SKIN: Negative rash, lesions/sores. NEURO: Negative headache, dizziness, weakness. Physical Exam Physical Exam: GENERAL APPEARANCE NAD, activity normal for age, well developed/ well nourished, no cyanosis, pallor, or diaphoresis. EYES lids/conjunctiva normal. EARS/NOSE/THROAT Mucous membranes moist, nares normal, lips/teeth normal uvula midline without oral pharyngeal erythema, exudate or swelling TMs normal bilaterally. No lymphangitis/lymphedema. HEAD/NECK normocephalic atraumatic, no facial trauma, neck is supple. RESPIRATORY respiratory effort normal, speaks in full sentences, no tripod position, no accessory muscle use. Lungs clear to auscultation without rhonchi, wheezes, rales CARDIAC Regular rate and rhythm, no edema. ABDOMINAL Soft, ND/NT. No evidence of fluid wave. No pulsatile masses on exam, rebound tenderness, Ron sign or pain over Mcburney's point. MUSCLES/EXTREMITIES No abnormal range of motion, no swelling. SKIN Warm, pink and dry. No rashes, dermatoses, petechiae or lesions. NEUROLOGICAL Speech is clear and appropriate. Normal level of consciousness. Gait and coordination are normal. 5/5 strength in all extremities. PSYCH Normal mood and affect. Judgement/competence is appropriate Results & Data Results & Data Vital Signs (Past 12 Hours) Vital Signs Temp Pulse Pulse Pulse Resp BP Pulse Ox 11/11/24 07:48 36.7 C 88 16 148/90 H 93 11/11/24 07:23 84 11/11/24 03:20 36.5 C 84 18 137/82 94 11/11/24 00:00 99 H 11/11/24 00:00 36.6 C 96 H 18 132/73 93 O2 Del Method 11/11/24 07:48 Room Air 11/11/24 07:23 11/11/24 03:20 Room Air 11/11/24 00:00 11/11/24 00:00 Room Air PG Care Time/CCT Total # of Minutes Spent Total Time Spent with Patient: Total time spent is greater than 50% in coordination of care (as documented) at patient's floor/unit and/or counseling patient: Coding Level of Care Code 25914 SUB INP/OBS CARE 2/35MIN Diagnoses Shortness of breath R06.02 Ascites R18.8 Pleural effusion, right J90 Hepatitis C B19.20 End stage chronic kidney disease N18.6 Pleural effusion J90 Primary hypertension I10 Hypertension type: primary hypertension (7) HTN (hypertension) Hypertension type: primary hypertension Qualified Code(s): I10 - Essential (primary) hypertension
[2024-11-11] MEDS: EPOETIN ALFA 10,000 UNITS/ML VIAL IV ONE (13:19)
[2024-11-12 07:20] VITALS: RESP 18; TEMP 97.9; O2SAT 95
[2024-11-12 07:29] LABS: Hematocrit (blood only) 26.5 % (42.0-52.0); Hemoglobin 8.7 g/dl (14.0-18.0); Mean Corpuscular Hemoglobin 30.1 pg (25.0-34.0); Mean Corpuscular Hgb Conc 32.8 g/dL (32.0-36.0); Mean Corpuscular Volume 91.7 fL (80.0-100.0); Mean Platelet Volume 8.9 fL (9.4-12.4); Platelet Count 103 K/uL (130-400); RDW Coefficient of Variation 16.6 % (11.5-14.5); RDW Standard Deviation 55.8 fL (36.4-46.3); Red Blood Count 2.89 M/uL (4.70-6.10); White Blood Count 6.52 K/ul (4.8-10.8)
[2024-11-12 07:39] LABS: BUN Creatinine Ratio 9.6 (10-20); Creatinine Clr Calc Pharmacy 20.6 ml/min; Potassium 4.2 mmol/L (3.5-5.1)
--- NOTE | 2024-11-12 09:41 | Discharge Summary ---
Discharge Summary Date of Service November 12, 2024 Principal Dx & Hospital Course #1 = Principal Diagnosis (1) Shortness of breath: -resolved -s/p paracentesis yesterday with 6L removed. (2) Ascites: -resolved s/p paracentesis (3) Pleural effusion, right: Still has significant right pleural effusion although this appears unchanged following thoracentesis last admission (4) Hepatitis C: (5) End stage chronic kidney disease: Management per nephrology, consulted (6) Pleural effusion: Still has significant right pleural effusion although this appears unchanged following thoracentesis last admission I suspect this is lower likelihood of causing his acute shortness of breath More likely due to abdominal distension with ascites - plan for paracentesis on non dialysis day (tomorrow), this will likely need to be set up routinely as outpatient unless he undergoes TIPS procedure in the future If still significantly short of breath following paracentesis could consider repeat thoracentesis (7) HTN (hypertension): Patient not taking any regular anti-hypertensives despite given last admission and on medication list and given hypotension last admission will avoid restarting them currently other than his furosemide to help with fluid status in between dialysis sessions Plan 64 year old male with ESRD on dialysis and liver cirrhosis presents to the ER with worsening abdominal distension causing shortness of breath -plan to d/c after HD, possibly tmw 11/12 Admission HPI Per Admitting Provider Shane Jones is a 64-year-old male who presents to the ER with shortness of br eath and increasing abdominal distention. He was recently admitted for liver cirrhosis and end stage renal disease with right pleural effusion and ascites undergoing dialysis, paracentesis and thoracentesis. He reports significant improvement following these procedures but after discharge on October 23 the fluid in his abdomen has been gradually increasing again. On Thursday at dialysis he reports nephrology had told him they were going to arrange outpatient paracentesis although he is yet to hear for an appointment for this. He reports he has follow up booked with [facility] for treatment/management of his liver cirrhosis but hasn't been seen yet. He undergoes dialysis on Thursday, and Thursday. He woke up today and had such trouble breathing that he decided he couldn't wait longer for the paracentesis. He has mild right sided abdominal pain on palpation only. No fever or chills. No other respiratory, gastrointestinal or urinary symptoms. Discharge Exam GENERAL APPEARANCE NAD, activity normal for age, well developed/ well nourished, no cyanosis, pallor, or diaphoresis. EYES lids/conjunctiva normal. EARS/NOSE/THROAT Mucous membranes moist, nares normal, lips/teeth normal uvula midline without oral pharyngeal erythema, exudate or swelling TMs normal bilaterally. No lymphangitis/lymphedema. HEAD/NECK normocephalic atraumatic, no facial trauma, neck is supple. RESPIRATORY respiratory effort normal, speaks in full sentences, no tripod position, no accessory muscle use. Lungs clear to auscultation without rhonchi, wheezes, rales CARDIAC Regular rate and rhythm, no edema. ABDOMINAL Soft, ND/NT. No evidence of fluid wave. No pulsatile masses on exam, rebound tenderness, Ron sign or pain over Mcburney's point. MUSCLES/EXTREMITIES No abnormal range of motion, no swelling. SKIN Warm, pink and dry. No rashes, dermatoses, petechiae or lesions. NEUROLOGICAL Speech is clear and appropriate. Normal level of consciousness. Gait and coordination are normal. 5/5 strength in all extremities. PSYCH Normal mood and affect. Judgement/competence is appropriate Discharge Plan Discharge Items Patient Disposition: Home - Self-Care Reason For Visit: ANASARCA, PLEURAL EFFUSION, ASCITES Discharge Diagnosis: Anasarca Activity: Resume your previous activity Non-emergency contact: Primary Care Provider Follow-up/Referrals: Vu Cody MD [Primary Care Provider] - Diet: Regular Addtl Attending Provider Instructions: Follow up with PMD in 2 weeks Pending Studies at Discharge: No Stand-Alone [facility] Sm[facility] Cess[facility] Medications and DC Order Prescriptions: Continued carvedilol 6.25 mg tablet 6.25 mg PO BID Qty: 60 2RF Rx Instructions: must administer with a meal/food albuterol sulfate 90 mcg/actuation HFA aerosol inhaler 1 puff inhalation Q4H PRN (Reason: shortness of breath or wheezing) Qty: 18 3RF amlodipine 5 mg tablet 10 mg PO DAILY Qty: 180 3RF Hold Instructions: Held due to hypotension especially in the setting of HD, can consider resuming if elevated BPs atorvastatin 40 mg tablet 40 mg PO DAILY Qty: 90 3RF (DME) OneTouch Verio test strips Strip See Dose Instructions .ROUTE .MEDSUPPLY Qty: 400 3RF Dose Instruction: As directed Rx Instructions: Test 4 times daily Novolog FlexPen U-100 Insulin 100 unit/mL (3 mL) insulin pen See Rx Instructions .ROUTE .COMPLEX Qty: 15 3RF Rx Instructions: Unable to verify med w/ patient/ pharmacy this date/time. Original Directions: inject with meals per sliding scale up to TDD 60 units ; TYPICALLY 20 UNITS WITH MEALS (DME) lancets 33 gauge misc See Dose Instructions .ROUTE .MEDSUPPLY Qty: 400 3RF Dose Instruction: As directed Rx Instructions: Test blood sugars 4 times a day lisinopril 40 mg tablet 40 mg PO DAILY Qty: 90 3RF Hold Instructions: Held for TRAN and in the setting of hypotension especially with HD, could consider resuming in BPs elevated omeprazole 20 mg capsule,delayed release(DR/EC) 20 mg PO DAILY Qty: 90 3RF (DME) pen needle, diabetic [BD Ultra-Fine Olivia Pen Needle] 32 gauge x 5/32" needle See Rx Instructions .ROUTE .MEDSUPPLY Qty: 500 3RF Rx Instructions: use to inject insulin 5 x daily triamcinolone acetonide 0.1 % cream 1 applic TOP BID PRN (Reason: Skin Irritation) Qty: 80 3RF Rx Instructions: Apply to areas of the back and arms twice daily x 2 weeks. aspirin 81 mg Tablet,Delayed Release (Dr/Ec) 81 mg PO DAILY Rx Instructions: Unable to verify OTC meds at this date/time. calcium acetate(phosphat bind) 667 mg capsule 667 mg PO TIDWMEAL midodrine 5 mg tablet 5 mg PO 3XWK Rx Instructions: Take one tablet by mouth prior to dialysis treatment on Thursday. metoclopramide HCl 5 mg tablet 5 mg PO BID Rx Instructions: Before meals insulin glargine [Lantus U-100 Insulin] 100 unit/mL Solution 20 unit SC HS 30 Days Qty: 6 0RF hydroxyzine HCl 25 mg Tablet 25 mg PO TID PRN (Reason: anxiety) Qty: 30 0RF Renal Caps 1 mg Capsule 1 cap PO QAM Qty: 30 0RF Rx Instructions: Unable to verify med w/ patient/ pharmacy this date/time. furosemide [Lasix] 40 mg tablet 120 mg PO BID 30 Days Qty: 180 0RF Discharge Orders: Discharge Order (Routine); Ordered 11/12/24 Ordered By: Dwight Weaver Admission Data Admit Date/Time: 11/10/24 08:20 Attending Provider: Dwight Weaver Admit Provider: Nash Sams Primary Care Provider: Vu Cody Other Providers: Juan Denson; Nash Sams Hospital Stay Data Consultations 11/10/24 08:15 Consult Nephrology Routine 11/10/24 08:17 ED Decision to Admit Stat Diagnostic Imagining Performed 11/10/24 11:00 IR paracentesis abd w/img US Routine Pending Results Patient Have Any Pending Studies at Discharge: No Discharge Instructions Given to Patient (Per Discharging Provider) Follow up with PMD in 2 weeks Total Time Total Time Spent Total Time Spent (In Minutes): 50 Coding Level of Care Code 05737 INP/OBS DISCH >30 MIN Diagnoses Shortness of breath R06.02 Ascites R18.8 Pleural effusion, right J90 Hepatitis C B19.20 End stage chronic kidney disease N18.6 Pleural effusion J90 Primary hypertension I10 Hypertension type: primary hypertension
[2024-11-12 10:37] VITALS: BP 142/85; PULSE 92
--- NOTE | 2024-11-12 10:48 | Nephrology Progress Note ---
Date of Service November 12, 2024 Assessment & Plan (1) End stage renal disease on dialysis: (2) Ascites: (3) Pleural effusion: (4) Shortness of breath: (5) Anemia due to chronic kidney disease: (6) End stage chronic kidney disease: (7) Anasarca: (8) Thrombocytopenia: (9) Anemia: (10) Ascites due to alcoholic cirrhosis: Plan 64-year-old gentleman with end-stage kidney disease with history of diabetic nephropathy, nephrotic syndrome and hepatorenal syndrome. Admitted with shortness of breath, worsening abdominal ascites and right-sided pleural effusion. Had 6 L paracentesis on admission with improvement in respiratory status despite having right-sided pleural effusion. Had 3 L UF yesterday, so far has been tolerating UF with dialysis. --Okay to be discharged, next dialysis Thursday at outpatient unit. --Continue on current dose of diuretics Admission and Anticipated Discharge Date Admission Date: November 10, 2024 Elijah Lynn was seen and evaluated this morning. He reports feeling better, denies any respiratory distress. No abdominal pain or discomfort. Had 3 L UF yesterday, tolerated well. Electrolyte acceptable. Blood pressure fair this morning. Review of Systems Review of Systems: Detailed review of system was otherwise unremarkable. Physical Exam Constitutional: WD/WN, vitals as above + ill appearing and + cachectic Eyes: + anicteric sclerae Neck: normal visual inspection Respiratory: Auscultation: + diminished lung sounds (rt lung) Cardiovascular: Rate/Rhythm: regular rate and regular rhythm Heart Sounds: normal S1 and normal S2 Gastrointestinal (Abdomen): Inspection/Auscultation: + abdomen distended Musculoskeletal: Extremities: extremities normal to inspection Skin: + turgor decreased and + skin atrophy Neurologic: no focal motor deficits and not confused Psychiatric: Orientation: alert and oriented x 3 Results & Data Vital Signs (Past 12 Hours) Vital Signs Temp Pulse Pulse Pulse Resp BP BP 11/12/24 10:36 36.6 C 94 H 92 H 18 121/81 142/85 H 11/12/24 09:33 11/12/24 07:19 36.6 C 94 H 18 121/81 11/12/24 07:15 97 H 11/12/24 03:07 36.7 C 101 H 20 125/75 11/11/24 23:19 36.6 C 97 H 20 131/79 Pulse Ox O2 Del Method 11/12/24 10:36 95 11/12/24 09:33 Room Air 11/12/24 07:19 95 Room Air 11/12/24 07:15 11/12/24 03:07 92 Room Air 11/11/24 23:19 92 Room Air PG Care Time/CCT Total # of Minutes Spent Total Time Spent with Patient: Total time spent is greater than 50% in coordination of care (as documented) at patient's floor/unit and/or counseling patient: Coding Level of Care Code 17282 SUB INP/OBS CARE 2/35MIN Diagnoses End stage renal disease on dialysis N18.6; Z99.2 Ascites R18.8 Pleural effusion J90 Shortness of breath R06.02 Anemia due to chronic kidney disease N18.9; D63.1 End stage chronic kidney disease N18.6 Anasarca R60.1 Thrombocytopenia D69.6 Anemia D64.9 Anemia type: unspecified type Ascites due to alcoholic cirrhosis K70.31 (9) Anemia Anemia type: unspecified type Qualified Code(s): D64.9 - Anemia, unspecified
== END 2024-11-12 12:30 | disposition home or self-care (01) | DRG 432 ==
LOC: ED 05:59 → SUATTDRO 08:20 → EDINP 08:20 → 2N 16:49